=== PATIENT | female | born 2005 | race Caucasian/White ===

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

== ENCOUNTER 2023-01-06 10:50 | Outpatient (OUT) | payer OTHER, SELFPAY ==
--- NOTE | 2023-01-06 11:03 | US_ITS ---
[address] [address] Patient Name: VENKATA THOMPSON MRN: [facility]:[id number] date: 2005 Sex: F Assigned Patient Location: US Current Patient Location: US Accession/Order Number: [id number] Exam Date: 01/06/2023 11:06 Report Date: 01/06/2023 15:09 At the request of: IMAN CYR Procedure: US OB growth EXAMINATION: US OB growth HISTORY: Inconsistent Size With Dates O26.849 COMPARISON: Ultrasound OB anatomy 10/28/2022 FINDINGS: Heart Rate: 135.7 bpm Number: 1.0 Position: CEPHALIC Amniotic Fluid Volume: 13.3 cm Maximum Vertical Pocket: 4.7 cm BIOMETRY: BPD: 7.7 cm cm; 31 weeks 0 days; 57% HC: 28.5 cmcm; 31 weeks 2 days; 37% AC: 24.9 cm cm; 29 weeks 1 days; 12% FL: 5.6 cm cm; 29 weeks 4 days; 13% % EFW: 1421.6 grams; 15% FL/AC: 22.6 FL/BPD: 72.7 HC/AC: 1.1 GESTATIONAL AGE: Age by EDC: 30 weeks 3 days BUTCH by EDC: 03/14/2023 Age by US: 30 weeks 2 days BUTCH by US: 03/15/2023 US/US OB growth IMPRESSION: 1. Single live intrauterine with growth detailed above. 2. Grade 2 mildly aged placenta. Electronically authenticated by: DIOR ERICKSON Date: 01/06/2023 15:09
== END 2023-01-06 10:51 | disposition home or self-care (01) ==
PROVIDERS: PCP Family Medicine; Visit Provider Obstetrics & Gynecology
DX: O26.843 Uterine size-date discrepancy, third trimester (principal); Z3A.30 30 weeks gestation of pregnancy
CPT/HCPCS: 76816

== ENCOUNTER 2023-02-10 07:55 | Outpatient (OUT) | payer OTHER, SELFPAY ==
--- NOTE | 2023-02-10 08:00 | US_ITS ---
[address] [address] Patient Name: VENKATA THOMPSON MRN: [id number] date: 2005 Sex: F Assigned Patient Location: US Current Patient Location: Accession/Order Number: [id number] Exam Date: 02/10/2023 08:02 Report Date: 02/10/2023 15:16 At the request of: IMAN CYR Procedure: US OB growth EXAMINATION: US OB growth HISTORY: Size Inconsistent With Dates COMPARISON: Ultrasound OB growth 01/06/2023 FINDINGS: Heart Rate: 129.2 bpm Number: 1.0 Position: Cephalic Amniotic Fluid Volume: 13.3 cm Maximum Vertical Pocket: 3.8 cm BIOMETRY: BPD: 8.8 cm cm; 35 weeks 3 days HC: 31.4 cmcm; 35 weeks 1 days AC: 30.3 cm cm; 34 weeks 2 days FL: 6.8 cm cm; 34 weeks 5 days EFW: 2469.4 grams; 26% FL/AC: 22.3 FL/BPD: 76.9 HC/AC: 1.0 GESTATIONAL AGE: Age by EDC: 35 weeks 3 days BUTCH by EDC: 03/14/2023 Age by US: 34 weeks 6 days BUTCH by US: 03/18/2023 US/US OB growth IMPRESSION: 1. Single live intrauterine with growth detailed above. Electronically authenticated by: DIOR ERICKSON Date: 02/10/2023 15:16
--- NOTE | 2023-02-10 08:00 | US_ITS ---
[address] [address] Patient Name: VENKATA THOMPSON MRN: [facility]:[id number] date: 2005 Sex: F Assigned Patient Location: US Current Patient Location: Accession/Order Number: [id number] Exam Date: 02/10/2023 08:02 Report Date: 02/10/2023 15:18 At the request of: IMAN CYR Procedure: US OB transvaginal EXAMINATION: US OB placenta HISTORY: Placenta Previa In Third Trimester O44.03 COMPARISON: Ultrasound OB growth 01/06/2023, ultrasound OB anatomy 10/28/2022 FINDINGS: PLACENTA: Anterior with lower margin 10.0 cm from os. Numerous calcifications throughout the placenta. No production or subchorionic hematoma. CERVIX LENGTH: 2.5 cm HEART RATE: 124 bpm OTHER: None. US/US OB transvaginal IMPRESSION: 1. Grade 2 anterior placenta without previa. 2. Closed cervix 2.5 cm in length. Electronically authenticated by: DIOR ERICKSON Date: 02/10/2023 15:18
--- NOTE | 2023-02-10 08:00 | US_ITS ---
[place] [id number] Patient Name: VENKATA THOMPSON MRN: [facility]:[id number] date: 2005 Sex: F Assigned Patient Location: US Current Patient Location: Accession/Order Number: [id number] Exam Date: 02/10/2023 08:02 Report Date: 02/10/2023 15:18 At the request of: IMAN CYR Procedure: US OB placenta EXAMINATION: US OB placenta HISTORY: Placenta Previa In Third Trimester O44.03 COMPARISON: Ultrasound OB growth 01/06/2023, ultrasound OB anatomy 10/28/2022 FINDINGS: PLACENTA: Anterior with lower margin 10.0 cm from os. Numerous calcifications throughout the placenta. No production or subchorionic hematoma. CERVIX LENGTH: 2.5 cm HEART RATE: 124 bpm OTHER: None. US/US OB placenta IMPRESSION: 1. Grade 2 anterior placenta without previa. 2. Closed cervix 2.5 cm in length. Electronically authenticated by: DIOR ERICKSON Date: 02/10/2023 15:18
== END 2023-02-10 07:56 | disposition home or self-care (01) ==
LOC: US 07:55
PROVIDERS: Visit Provider Obstetrics & Gynecology
DX: O44.03 Complete placenta previa NOS or without hemorrhage, third trimester (principal); O26.843 Uterine size-date discrepancy, third trimester
CPT/HCPCS: 76815; 76816; 76817

== ENCOUNTER 2023-02-14 20:41 | Outpatient (REF) | payer OTHER, SELFPAY | END 2023-02-14 20:42 | disposition home or self-care (01) | LOC: LAB 20:41 | PROVIDERS: Visit Provider Obstetrics & Gynecology | DX: Z34.93 Encounter for supervision of normal pregnancy, unspecified, third trimester (principal) | CPT/HCPCS: 87081; 87150 ==

== ENCOUNTER 2023-02-23 12:15 | Outpatient (OUT) | payer OTHER, SELFPAY ==
[2023-02-23 12:30] VITALS: BP 133/84; PULSE 85
[2023-02-23 12:38] LABS: Bilirubin Urine NEGATIVE (NEGATIVE); Blood Urine SMALL (NEGATIVE); Clarity Urine CLEAR (CLEAR); Color Urine LT. YELLOW (YELLOW); Glucose Urine UA NEGATIVE (NEGATIVE); Ketones Urine NEGATIVE (NEGATIVE); Leukocyte Esterase Urine SMALL (NEGATIVE); Nitrite Urine NEGATIVE (NEGATIVE); Protein Urine >=300 mg/dL (NEG/TRACE); Urobilinogen Urine 0.2 EU/dL (0.2-1.0)
[2023-02-23 12:39] LABS: Urine Microscopic Indicated YES
[2023-02-23 12:51] LABS: Bacteria Urine SMALL #/HPF (NONE SEEN)
[2023-02-23 12:52] LABS: Cast Seen? NONE SEEN #/LPF (NONE SEEN); Crystals Seen? None Seen #/HPF (None Seen); Mucus Urine NONE SEEN (NONE SEEN); Squamous Epithelial Cell Urine FEW #/LPF (NONE/RARE); Urine Culture Indicated YES
--- NOTE | 2023-02-23 12:57 | US_ITS ---
[address] [address] Patient Name: VENKATA THOMPSON MRN: [id number] date: 2005 Sex: F Assigned Patient Location: [facility] Current Patient Location: [facility] Accession/Order Number: [id number] Exam Date: 02/23/2023 13:39 Report Date: 02/23/2023 15:08 At the request of: IMAN CYR Procedure: US renal BI EXAM: Renal and bladder ultrasound CLINICAL INDICATION: back and abdominal pain. COMPARISON: None TECHNIQUE: Grayscale and color Doppler imaging was obtained of both kidneys. FINDINGS: RIGHT: Moderate hydronephrosis. Debris in the right renal pelvis. Cortical echogenicity and thickness is preserved. The kidney measures 10.6 cm length. No sonographically evident renal calculi. No abnormal renal masses identified. LEFT: No hydronephrosis. Cortical echogenicity and thickness is preserved. The kidney measures 11.3 cm length. No sonographically evident renal calculi. No abnormal renal masses identified. Bladder: No obvious sonographic abnormality. US/US renal BI IMPRESSION: Moderate right hydronephrosis with debris in the renal pelvis. Electronically authenticated by: JOSE GRANT Date: 02/23/2023 15:08
--- NOTE | 2023-02-23 12:57 | US_ITS ---
[place] [id number] Patient Name: VENKATA THOMPSON MRN: [facility]:[id number] date: 2005 Sex: F Assigned Patient Location: [facility] Current Patient Location: [facility] Accession/Order Number: [id number] Exam Date: 02/23/2023 13:39 Report Date: 02/23/2023 15:08 At the request of: IMAN CYR Procedure: US OB placenta EXAM: US OB placenta 02/23/2023 12:04 PM PDT, [id number] HISTORY: back and abdominal pain. TECHNIQUE: Multiple longitudinal and transverse grayscale and color sonographic images of the uterine fetus and placenta were acquired. COMPARISON: None. FINDINGS: The placenta is anterior. There are scattered calcifications throughout the placenta with early outline of the cotelydons, appearance is within expected limits given the gestational age of 37 weeks 2 days. No evidence of placental abruption. Retroplacental interface with the uterus is within normal limits. Single live intrauterine fetus. Presentation is cephalic and the heart rate is within normal limits at 133 bpm. US/US OB placenta IMPRESSION: No etiology for left flank pain demonstrated. Electronically authenticated by: JENA HALL Date: 02/23/2023 15:08
[2023-02-23 13:19] VITALS: BP 95/53; PULSE 96
[2023-02-23] MEDS: 0.9 % SODIUM CHLORIDE 1,000 ML 1000 ML IV (13:27)
[2023-02-23 13:31] LABS: Basophils Percent Auto 0.5 % (0.2-2.0); Eosinophils Absolute Auto 0.1 10^3/uL (0.0-0.7); Eosinophils Percent Auto 0.8 % (0.9-7.0); Hematocrit 31.8 % (36.0-48.0); Hemoglobin 9.8 g/dL (12.0-16.0); Immature Granulocytes Abs Auto 0.09 10^3/uL (0.00-0.03); Immature Granulocytes Pct Auto 1.1 % (0.0-0.5); Lymphocytes Absolute Auto 1.5 10^3/uL (1.2-3.8); Mean Corpuscular HGB Conc 30.8 g/dL (29.9-35.2); Mean Corpuscular Hemoglobin 23.6 pg (26.7-34.0); Mean Corpuscular Volume 76.4 fL (81.0-99.0); Mean Platelet Volume 11.1 fL (9.5-13.5); Monocytes Absolute Auto 0.5 10^3/uL (0.3-0.8); Monocytes Percent Auto 5.3 % (1.7-12.0); Neutrophils Absolute Auto 6.3 10^3/uL (1.4-6.5); Neutrophils Percent Auto 74.3 % (43.0-75.0); Platelet Count 244 10^3/uL (150-450); Red Blood Count 4.16 10^6/uL (4.20-5.40); White Blood Count 8.5 10^3/uL (4.0-11.0)
[2023-02-23] MEDS: CEFAZOLIN SODIUM/DEXTROSE,ISO 1 GM/50 ML IV.SOLN IV (13:33)
[2023-02-23 13:43] LABS: Alanine Aminotransferase 19 U/L (14-59); Aspartate Amino Transferase 12 U/L (15-37); Estimated GFR (African America >60 (>=60); Estimated GFR (Non-African Ame >60 (>=60)
[2023-02-23] MEDS: NIFEdipine 10 MG CAPSULE PO (15:47)
[2023-02-23 15:49] VITALS: BP 131/76; PULSE 67
== END 2023-02-23 17:45 | disposition home or self-care (01) ==
LOC: FBCO 12:16 → FBC 12:18
PROVIDERS: PCP Family Medicine; Visit Provider Obstetrics & Gynecology
DX: O26.893 Other specified pregnancy related conditions, third trimester (principal); M54.89 Other dorsalgia; R10.9 Unspecified abdominal pain; Z3A.37 37 weeks gestation of pregnancy
CPT/HCPCS: 36415; 76775; 76815; 81001; 82565; 84450; 84460; 84520; 85025; 87086

== ENCOUNTER 2023-03-09 05:08 | Inpatient (IN) | payer OTHER, SELFPAY ==
[2023-03-09] VITALS (59 sets, daily range): BP systolic 119–182; BP diastolic 63–107; PULSE 62–108; RESP 16; TEMP 36.7–37
[2023-03-09 05:55] LABS: Hematocrit 31.5 % (36.0-48.0); Hemoglobin 9.8 g/dL (12.0-16.0); Mean Corpuscular HGB Conc 31.1 g/dL (29.9-35.2); Mean Corpuscular Hemoglobin 23.6 pg (26.7-34.0); Mean Corpuscular Volume 75.7 fL (81.0-99.0); Platelet Count 194 10^3/uL (150-450); Red Blood Count 4.16 10^6/uL (4.20-5.40); Red Cell Distribution Width 14.4 % (11.0-15.0); White Blood Count 8.6 10^3/uL (4.0-11.0)
[2023-03-09 06:13] LABS: Cannabinoid Screen Urine NEGATIVE (NEGATIVE); Cocaine Screen Urine NEGATIVE (NEGATIVE); Methamphetamines Screen Urine NEGATIVE (NEGATIVE); Phencyclidine Screen Urine NEGATIVE (NEGATIVE)
[2023-03-09 06:14] LABS: Amphetamine Screen Urine NEGATIVE (NEGATIVE); Barbiturates Screen Urine NEGATIVE (NEGATIVE); Benzodiazepines Screen Urine NEGATIVE (NEGATIVE); Buprenorphine Screen Urine NEGATIVE (NEGATIVE); Methadone Screen Urine NEGATIVE (NEGATIVE); Opiate Screen Urine NEGATIVE (NEGATIVE); Oxycodone Screen Urine NEGATIVE (NEGATIVE); Tricyclic Antidepressant Urine NEGATIVE (NEGATIVE)
[2023-03-09] MEDS: 0.9 % SODIUM CHLORIDE 1,000 ML 125 ML IV (06:21)
[2023-03-09] MEDS: AMPICILLIN SODIUM 2,000 MG in 0.9 % SODIUM CHLORIDE 100 ML 200 MG IV (06:22)
[2023-03-09] MEDS: OXYTOCIN/0.9 % SODIUM CHLORIDE 10 UNITS/500 ML PLAST..BAG 6 UNIT IV (06:25)
--- NOTE | 2023-03-09 08:21 | W.PC.ACHO ---
Registration Status: ADM IN Primary Language: Tristanian Preferred Language: Tristanian Active Medications Generic Name Dose Route Start Last Admin Trade Name Jenelle PRN Reason Stop Dose Admin Carboprost Tromethamine 250 mcg 03/09/23 05:21 Carboprost Tromethamine 250 Mcg/Ml 1 Ml Vial IM 03/11/23 05:21 Q15M PRN Bleeding Sodium Chloride 1,000 mls @ 125 mls/hr 03/09/23 05:30 03/09/23 06:21 Sodium Chloride 0.9% 1,000 Ml IV 125 mls/hr .Q8H DANIELLE Administration Oxytocin/Sodium Chloride 10 units in 500 mls @ 6 mls/hr 03/09/23 05:30 03/09/23 06:25 Pitocin 10 Unit/500 Ml-Ns IV 2 milliunit/min CONT DANIELLE 6 mls/hr Administration Protocol 2 MILLIUNIT/MIN Ampicillin 1,000 mg/ Sodium 50 mls @ 100 mls/hr 03/09/23 10:00 Chloride IV Q4H DANIELLE Oxytocin/Sodium Chloride 20 units in 1,000 mls @ 125 mls/hr 03/09/23 05:30 Pitocin 20 Unit/1,000 Ml-Ns IV 03/09/23 13:29 Q8H DANIELLE Lidocaine 5 ml 03/09/23 05:21 Lidocaine Viscous 2% 15 Ml Solution TOPICAL ONCE PRN Pain Lidocaine 1 ml 03/09/23 05:21 Lidocaine Hcl 1% 200 Mg/20 Ml Mdv INJ ONCE PRN Pain Methylergonovine Maleate 0.2 mg 03/09/23 05:21 Methylergonovine Maleate 0.2 Mg/Ml Ampule IM 03/11/23 05:21 ONCE PRN Uterine Contractility/Contract Methylergonovine Maleate 0.2 mg 03/09/23 05:21 Methylergonovine Maleate 0.2 Mg Tablet PO 03/11/23 05:21 Q4H PRN Uterine Contractility/Contract Misoprostol 600 mcg 03/09/23 05:21 Misoprostol 100 Mcg Tablet PO 03/11/23 05:21 ONCE PRN Uterine Bleeding Misoprostol 800 mcg 03/09/23 05:21 Misoprostol 100 Mcg Tablet SL 03/11/23 05:21 ONCE PRN Uterine Bleeding Misoprostol 1,000 mcg 03/09/23 05:21 Misoprostol 100 Mcg Tablet VT 03/11/23 05:21 ONCE PRN Uterine Bleeding Nalbuphine HCl 10 mg 03/09/23 05:21 Nalbuphine Hcl 10 Mg/Ml Ampule IV Q3H PRN Pain Ondansetron HCl 4 mg 03/09/23 05:21 Ondansetron Pf 4 Mg/2 Ml Vial IV Q6H PRN Nausea And Vomiting Ondansetron HCl 4 mg 03/09/23 05:21 Ondansetron 4 Mg Rapdis Tablet SL Q6H PRN Nausea And Vomiting Oxytocin 10 unit 03/09/23 05:21 Oxytocin 10 Unit/Ml Vial IM 03/11/23 05:21 ONCE PRN Bleeding Diet Category Date Time Status Clear Liquid Diet Diet 03/09/23 05:23 Active Consults Category Date Time Status Consult to Anesthesiology Routine Cons 03/09/23 Ordered IV Insertion/Site Date of IV Line Insertion [20g 03/09/23 Forearm] IV Insertion Time [20g Forearm 05:40 ] Neurology Patient orientation (short person,place,time,situation list)
[2023-03-09] MEDS: 0.9 % SODIUM CHLORIDE 1,000 ML 1000 ML IV (09:47)
[2023-03-09] MEDS: ROPIVACAINE HCL/PF 400 MG/200 ML PREMIX 6 MG EPIDURAL (11:13)
[2023-03-09] MEDS: FENTANYL CITRATE/PF 100 MCG/2 ML VIAL EPIDURAL ×2 (11:13→11:14)
[2023-03-09] MEDS: LIDOCAINE HCL 2% PF 100 MG/5 ML VIAL INJ (11:16)
[2023-03-09] MEDS: AMPICILLIN SODIUM 1,000 MG in 0.9 % SODIUM CHLORIDE 50 ML 100 MG IV ×2 (11:50→16:03)
--- NOTE | 2023-03-09 12:12 | PC.NURSE ---
calls out I feel funny, my head hurts and I feel a little nauseous BP assessed, reflexes 2+ upper, unable to illicit lower, no dizziness, visual disturbances or epigastric pain noted. cold washcloth to forehead and encouraged to rest
--- NOTE | 2023-03-09 13:05 | PC.NURSE ---
repositioned onto rt side for comfort, headache continues
--- NOTE | 2023-03-09 18:25 | PM.OBPRCVD ---
Procedure Intrapartal events: None Induction method: per pitocin protocol Delivery augmentation: rupture of membranes and pitocin Delivery monitor: external FHT and external uterine Route of delivery: Episiotomy Description: midline Laceration description: perineal - 2nd degree Delivery repair: Vicryl Estimated blood loss (mL): 250 Anesthesia type: Epidural Disposition: floor Delivery date: 03/09/23 Gender: female presentation: vertex Placental delivery description: Spontaneous cord description: 3 Vessels
[2023-03-09] MEDS: LIDOCAINE HCL 1% 200 MG/20 ML MDV INJ (18:41)
[2023-03-09] MEDS: OXYTOCIN/0.9 % SODIUM CHLORIDE 20 UNITS/1,000 ML PLAST..BAG 125 UNIT IV (18:41)
[2023-03-09] MEDS: IBUPROFEN 600 MG TABLET PO (20:12)
[2023-03-09] MEDS: GLYCERIN/WITCH HAZEL PADS 1 PAD TOPICAL (20:13)
[2023-03-09] MEDS: BENZOCAINE/MENTHOL 85 GRAM SPRAY BOTTLE 1 APPLIC TOPICAL (20:14)
--- NOTE | 2023-03-09 21:29 | PC.NURSE ---
2054 Epidural removed intact to black tip, BP rechecked with pt lying with arm still, denies headache or blurry vision or epigastric pain-knows to inform nurse if any of these occur. Up to void, pericare reviewed and bedlinens changed
--- NOTE | 2023-03-10 01:56 | PC.NURSE ---
Report given to Sid Singletary RN.
[2023-03-10] MEDS: IBUPROFEN 600 MG TABLET PO ×3 (04:28→21:01)
[2023-03-10 06:19] LABS: Basophils Absolute Auto 0.1 10^3/uL (0.0-0.1); Basophils Percent Auto 0.3 % (0.2-2.0); Eosinophils Percent Auto 0.1 % (0.9-7.0); Hematocrit 25.7 % (36.0-48.0); Hemoglobin 7.9 g/dL (12.0-16.0); Immature Granulocytes Abs Auto 0.11 10^3/uL (0.00-0.03); Immature Granulocytes Pct Auto 0.6 % (0.0-0.5); Lymphocytes Absolute Auto 2.5 10^3/uL (1.2-3.8); Lymphocytes Percent Auto 14.6 % (20.5-60.0); Mean Corpuscular HGB Conc 30.7 g/dL (29.9-35.2); Mean Corpuscular Volume 74.9 fL (81.0-99.0); Mean Platelet Volume 11.6 fL (9.5-13.5); Monocytes Absolute Auto 0.8 10^3/uL (0.3-0.8); Monocytes Percent Auto 4.9 % (1.7-12.0); Neutrophils Absolute Auto 13.7 10^3/uL (1.4-6.5); Neutrophils Percent Auto 79.5 % (43.0-75.0); Platelet Count 150 10^3/uL (150-450); Red Blood Count 3.43 10^6/uL (4.20-5.40); Red Cell Distribution Width 14.7 % (11.0-15.0); White Blood Count 17.2 10^3/uL (4.0-11.0)
--- NOTE | 2023-03-10 07:41 | PM.OBPN ---
OB - PN: Subj Subjective Patient comments: no complaints and pain well controlled [place] status: doing well Exam Constitutional Vital Signs, click to edit/add: Last Vital Signs Temp 98.6 F 03/09/23 23:28 Pulse 68 03/09/23 23:28 Resp 16 03/09/23 23:28 BP 128/71 03/09/23 23:17 O2 Del Method Room Air 03/09/23 23:28 Documenting provider has reviewed patient's vital signs: yes Common normals: no apparent distress Respiratory Common normals: normal respiratory effort and clear to auscultation bilaterally Cardio Common normals: regular rate and regular rhythm GI Common normals: Normal to inspection, nondistended, normoactive bowel sounds present Extremity Common normals: no calf tenderness Results Labs Labs: Short CBC 03/10/23 Range/Units 05:47 WBC 17.2 H (4.0-11.0) 10^3/uL Hgb 7.9 L (12.0-16.0) g/dL Hct 25.7 L (36.0-48.0) % Plt Count 150 (150-450) 10^3/uL OB - PN: A/P Plan - Vaginal Delivery day: 1 Plan: routine care Time Spent with Patient Time: Total time spent is greater than 50% in coordination of care (as documented) at patient's floor/unit and/or counseling patient: Total time spent with greater than 50% in coordination of care (as documented) at patient's floor/unit and/or counseling patient: less than 15 minutes
--- NOTE | 2023-03-10 08:07 | W.PC.ACHO ---
Registration Status: ADM IN Primary Language: Djiboutian Preferred Language: Djiboutian Active Medications Generic Name Dose Route Start Last Admin Trade Name Jenelle PRN Reason Stop Dose Admin Acetaminophen 650 mg 03/09/23 18:26 Acetaminophen 325 Mg Tablet PO Q6H PRN Mild Pain Al Hydroxide/Mg Hydroxide 2,400 mg 03/09/23 18:26 Magnesium Hydroxide 2,400 Mg/10 Ml Oral.Susp PO Q6H PRN Dyspepsia Benzocaine/Menthol 1 applic 03/09/23 18:26 03/09/23 20:14 Benzocaine/Menthol 85 Gram Jet Bottle TOPICAL 1 applic Q2H PRN Administration Pain Carboprost Tromethamine 250 mcg 03/09/23 05:21 Carboprost Tromethamine 250 Mcg/Ml 1 Ml Vial IM 03/11/23 05:21 Q15M PRN Bleeding Diphenhydramine HCl 25 mg 03/09/23 08:41 Diphenhydramine Hcl 50 Mg/Ml (1ml) Vial IV 03/10/23 08:42 Q6H PRN Itching Diphtheria/Pertussis/Tetanus Vacc 0.5 ml 03/11/23 09:00 Adacel Diph,Pertuss(Acell),Tet Vac/Pf 0.5 Ml Adult Syringe IM 03/11/23 09:01 .ONCE ONE Docusate Sodium 100 mg 03/10/23 09:00 Docusate Sodium 100 Mg Capsule PO BID DANIELLE Ephedrine Sulfate 5 mg 03/09/23 08:41 Ephedrine Sulfate 50 Mg/Ml Vial IV 03/10/23 08:42 Q5M PRN Blood Pressure - Low Fentanyl Citrate 100 mcg 03/09/23 08:41 03/09/23 11:13 Fentanyl Citrate/Pf 100 Mcg/2 Ml Vial EPIDURAL 100 mcg ONCE PRN Administration epidural Fentanyl Citrate 100 mcg 03/09/23 08:41 03/09/23 11:14 Fentanyl Citrate/Pf 100 Mcg/2 Ml Vial EPIDURAL 100 mcg ONCE PRN Administration epidural Sodium Chloride 1,000 mls @ 125 mls/hr 03/09/23 05:30 03/09/23 11:54 Sodium Chloride 0.9% 1,000 Ml IV 125 mls/hr .Q8H DANIELLE Infusion Oxytocin/Sodium Chloride 10 units in 500 mls @ 6 mls/hr 03/09/23 05:30 03/09/23 06:25 Pitocin 10 Unit/500 Ml-Ns IV 2 milliunit/min CONT DANIELLE 6 mls/hr Administration Protocol 2 MILLIUNIT/MIN Ampicillin 1,000 mg/ Sodium 50 mls @ 100 mls/hr 03/09/23 10:00 03/09/23 16:03 Chloride IV 100 mls/hr Q4H DANIELLE Administration Ropivacaine/Sodium Chloride 400 mg in 200 mls @ 6 mls/hr 03/09/23 08:45 03/09/23 11:13 Naropin 0.2% 400 Mg/200 Ml Bag EPIDURAL 6 mls/hr Q24H DANIELLE Administration Ibuprofen 600 mg 03/09/23 18:26 03/10/23 04:28 Ibuprofen 600 Mg Tablet PO 600 mg Q6H PRN Administration Moderate Pain Lidocaine 5 ml 03/09/23 05:21 Lidocaine Viscous 2% 15 Ml Solution TOPICAL ONCE PRN Pain Lidocaine 1 ml 03/09/23 05:21 03/09/23 18:41 Lidocaine Hcl 1% 200 Mg/20 Ml Mdv INJ 1 ml ONCE PRN Administration Pain Lidocaine 5 ml 03/09/23 08:41 03/09/23 11:16 Lidocaine Hcl 2% Pf 100 Mg/5 Ml Vial INJ 03/10/23 08:42 5 ml Q1H PRN Administration Epidural Measles/Mumps/Rubella Vaccine Live 0.5 ml 03/11/23 09:00 Measles,Mumps,Rubella Vacc/Pf 0.5 Ml Vial SQ 03/11/23 09:01 .ONCE ONE Methylergonovine Maleate 0.2 mg 03/09/23 05:21 Methylergonovine Maleate 0.2 Mg/Ml Ampule IM 03/11/23 05:21 ONCE PRN Uterine Contractility/Contract Methylergonovine Maleate 0.2 mg 03/09/23 05:21 Methylergonovine Maleate 0.2 Mg Tablet PO 03/11/23 05:21 Q4H PRN Uterine Contractility/Contract Misoprostol 600 mcg 03/09/23 05:21 Misoprostol 100 Mcg Tablet PO 03/11/23 05:21 ONCE PRN Uterine Bleeding Misoprostol 800 mcg 03/09/23 05:21 Misoprostol 100 Mcg Tablet SL 03/11/23 05:21 ONCE PRN Uterine Bleeding Misoprostol 1,000 mcg 03/09/23 05:21 Misoprostol 100 Mcg Tablet NJ 03/11/23 05:21 ONCE PRN Uterine Bleeding Nalbuphine HCl 10 mg 03/09/23 05:21 Nalbuphine Hcl 10 Mg/Ml Ampule IV Q3H PRN Pain Naloxone HCl 0.4 mg 03/09/23 08:41 Naloxone Hcl 0.4 Mg/Ml Vial IV 03/10/23 08:42 ONCE PRN Epidural Ondansetron HCl 4 mg 03/09/23 05:21 Ondansetron Pf 4 Mg/2 Ml Vial IV Q6H PRN Nausea And Vomiting Ondansetron HCl 4 mg 03/09/23 05:21 Ondansetron 4 Mg Rapdis Tablet SL Q6H PRN Nausea And Vomiting Oxytocin 10 unit 03/09/23 05:21 Oxytocin 10 Unit/Ml Vial IM 03/11/23 05:21 ONCE PRN Bleeding Senna 17.2 mg 03/09/23 20:00 Sennosides 8.6 Mg Tablet PO QHS PRN Constipation Simethicone 80 mg 03/09/23 18:26 Simethicone 80 Mg Tab.Chew PO QID PRN Abdominal Distention Temazepam 15 mg 03/09/23 18:26 Temazepam 15 Mg Capsule PO QHS PRN Sleep Witch Hanna/Glycerin 1 pad 03/09/23 18:26 03/09/23 20:13 Glycerin/Witch Hanna Pads TOPICAL 1 pad Q2H PRN Administration Pain Diet Category Date Time Status Regular Consistency Diet Diet 03/09/23 18:27 Active Respiratory Oxygen Delivery Method Room Air Bowels Bowel Pattern No Bowel Movement Catheter Date Urinary Catheter Removed 03/09/23
[2023-03-10 13:12] VITALS: BP 136/88; PULSE 80
[2023-03-10] MEDS: DOCUSATE SODIUM 100 MG CAPSULE PO ×2 (13:15→21:02)
[2023-03-10 16:32] VITALS: BP 131/74; PULSE 97
[2023-03-10 19:52] VITALS: BP 128/80; PULSE 81
[2023-03-10 20:16] VITALS: PULSE 81; RESP 14; TEMP 37.1
--- NOTE | 2023-03-11 04:25 | PM.OBPN ---
OB - PN: Subj Subjective Patient comments: no complaints and pain well controlled status: doing well Exam Constitutional Vital Signs, click to edit/add: Last Vital Signs Temp 98.7 F 03/10/23 20:16 Pulse 81 03/10/23 20:16 Resp 14 03/10/23 20:16 BP 128/80 03/10/23 19:52 O2 Del Method Room Air 03/10/23 20:16 Documenting provider has reviewed patient's vital signs: yes Common normals: no apparent distress Respiratory Common normals: normal respiratory effort and clear to auscultation bilaterally Cardio Common normals: regular rate and regular rhythm GI Common normals: Normal to inspection, nondistended, normoactive bowel sounds present Extremity Common normals: no clubbing, cyanosis or edema and no calf tenderness Results Labs Labs: Short CBC 03/10/23 Range/Units 05:47 WBC 17.2 H (4.0-11.0) 10^3/uL Hgb 7.9 L (12.0-16.0) g/dL Hct 25.7 L (36.0-48.0) % Plt Count 150 (150-450) 10^3/uL OB - PN: A/P Plan - Vaginal Delivery day: 2 Plan: routine care, discharge home and follow up 6 weeks Time Spent with Patient Time: Total time spent is greater than 50% in coordination of care (as documented) at patient's floor/unit and/or counseling patient: Total time spent with greater than 50% in coordination of care (as documented) at patient's floor/unit and/or counseling patient: less than 15 minutes
[2023-03-11 04:51] VITALS: BP 139/71; PULSE 67
[2023-03-11 05:04] VITALS: PULSE 67; RESP 14; TEMP 36.4
[2023-03-11 08:16] VITALS: BP 161/95; PULSE 68
[2023-03-11 08:17] VITALS: BP 146/87; PULSE 77
[2023-03-11 11:23] VITALS: BP 146/91; PULSE 64
--- NOTE | 2023-03-11 17:02 | PC.NURSE ---
bp as charted. repeated in opposite arm while sitting semi root's. Pt denies HOFF, blurry vision or epigastric pain. DTRs 1+upper and lower. Pt denies pain at this time. 09- to breast. latches independently. 103-Dr. Sofia in to assess . 1100-latches infant to breast again independently. 1110-Dr. Chapa in talks with pt about blood pressures. Pt verbalizes understanding, denies s/s of PIH. 112-repeat BP as charted. pt remains asymptomatic. Dr. Chapa orders pt to return tomorrow for recheck of BP. pt to monitor for s/s of PIH. 1140-pt informed of above instructions by Dr. Chapa and verbalizes understanding. 1235- bath demo completed. 1310-d/c instructions of self and reviewed. Discussed at length s/s of PIH and when to notify. Instructed pt to return tomorrow 03/12 @ 1100 for recheck of BP. pt and significant other verbalizes understanding. 1320-d/c to home ambulatory with and family.
== END 2023-03-11 13:20 | disposition home or self-care (01) | DRG 807 ==
PROVIDERS: Admitting Provider Obstetrics & Gynecology; PCP Family Medicine; Visit Provider Obstetrics & Gynecology
DX: O99.824 Streptococcus B carrier state complicating childbirth (principal); Z37.0 Single live birth; O99.62 Diseases of the digestive system complicating childbirth; K21.9 Gastro-esophageal reflux disease without esophagitis; O70.1 Second degree perineal laceration during delivery; Z3A.39 39 weeks gestation of pregnancy; Z79.899 Other long term (current) drug therapy; Z82.5 Family history of asthma and other chronic lower respiratory diseases; Z80.49 Family history of malignant neoplasm of other genital organs
CPT/HCPCS: 36415; 51702; 59050; 59410; 80307; 85025; 85027; 86850; 86900; 86901; 96365; 96375; 96376

== ENCOUNTER 2023-03-12 11:05 | Observation (INO) | payer OTHER, SELFPAY ==
[2023-03-12 11:23] VITALS: BP 156/100; PULSE 75
--- NOTE | 2023-03-12 11:46 | PC.NURSE ---
1115 To [facility] ambulatory accompanied by significant other and baby, states had [place] [facility] [place] herself out this am to come back here where she is more comfortable. Pt with hx of on 03/09/23 here with labile blood pressures during labor and . Pt called here last night and was sent to closest ER with c/o chest pressure, headache and looking pale . Dr Chapa and [facility] ER physician spoke and reviewed a plan for Leticia's care including transport to [place]. Dr Chapa is currently present here and instructs RN to have pt go to room under obs status and to obtain report from [facility]. Pt grants release of records and ER record from there sent here via fax and Dr Chapa reviews. Pt in room relaxing. Initial assessment Lungs clear t.o, denies chest pain, epigastric pain,visual disturbances or headache currently. States i feel good , vs 156/100 98.3-75-18. No swelling noted. Reflexes 1+upper, 2-3+ lower. Tearful regarding possible hospitalization and much reassurance given.
--- NOTE | 2023-03-12 11:58 | PC.NURSE ---
Dr Chapa in and talks with pt and significant other at length and examines, discusses plan of care with this RN as well
--- NOTE | 2023-03-12 12:13 | P.HP_ITS ---
H&P: HPI History of Present Illness Chief complaint: POST Narrative: [facility] WAS DISCHARGED YESTERDAY S/P UNCOMPLICATED VAGINAL DELIVERY. AT THE TIME OF DISCHARGE SHE HAD BORDERLINE HYPERTENSION WITHOUT SYMPTOMS. LATE LAST NIGHT SHE CALLED [facility] AND COMPLAINED OF HEADACHE WITH SOB AND CHEST PAIN. SHE WAS INSTRUCTED TO GO TO NEAREST ED. SHE WENT TO [facility]. THE ED PHYSICIAN WAS INSTRUCTED ON WHICH LABS TO ORDER IN EVALUATION FOR TOXEMIA POST DELIVERY AND ON DOSE OF LABETALOL FOR BLOOD PRESSURES REPORTED 160'S/100'S. SHE DID NOT HAVE CHEST PAIN OR SOB WHEN SEEN BY ED PHYSICIAN. WHILE WAITING FOR RESULTS OF LABS SHE WAS STARTED ON MAGNESIUM FOR SEIZURE PROTECTION. ONCE STAB ILIZED THE ED TRANSFERRED TO [place] BUT THE PATIENT SIGNED OUT AMA. SHE PRESENTED TO [facility] THIS AM. SHE WAS NOT COMPLAINING OF ANY CHEST PAIN OR SOB OR RUQ PAIN OR VISUAL CHANGES. SHE WAS TEARFUL BUT DIDN'T KNOW SPECIFICALLY WHY. Review of Systems ROS Status of ROS 10 or more systems reviewed and unremarkable except as noted in history and below [facility] Medical History (Updated 03/12/23 @ 12:28 by Francheska Chapa MD) Stomach problems ?K31.9 - Disease of stomach and duodenum, unspecified (ICD-10) Social History (Updated 03/09/23 @ 06:34 by Rebeka Neely) Within the past year, how often did you have a drink containing alcohol: never Score interpretation: A score less than 3 is consistent with normal alcohol consumption. 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 Highest level of school completed/degree received: high school graduate Are you now , , , , never or living with a partner: never Little interest or pleasure in doing things: not at all Feeling down, depressed, or hopeless: not at all Feel stressed/tense/nervous/anxious/difficulty sleeping: not at all Do you think of yourself as: straight/heterosexual Gender Identity: female Meds Home Medications and Allergies Home Medications Medication Instructions Recorded Confirmed Type omeprazole 40 mg capsule,delayed mg 03/09/23 History release Allergies Allergy/AdvReac Type Severity Reaction Status Date / Time No Known Allergies Allergy Unknown Verified 03/09/23 06:36 Exam Constitutional Vital Signs, click to edit/add: Last Vital Signs Pulse 75 03/12/23 11:23 BP 156/100 H 03/12/23 11:23 Documenting provider has reviewed patient's vital signs: yes Common normals: oriented x3, no limitations, healthy appearing and alert General appearance: cooperative and comfortable Nutritional appearance: thin Orientation/consciousness: Yes oriented to person, Yes oriented to place and Yes oriented to time HENMT Common normals: normocephalic and head/scalp atraumatic Eye Pupil: PERRL and accommodation reflex normal Neck & C-Spine Common normals: full ROM, no lymphadenopathy and supple Chest Common normals: inspection of chest normal Respiratory Common normals: normal respiratory effort Cardio Common normals: no JVD, regular rate and regular rhythm GI Common normals: Normal to inspection, nondistended, normoactive bowel sounds present Back & Pelvis Common normals: no CVA tenderness Extremity Common normals: normal to inspection, full ROM and no calf tenderness Neuro Common normals: CN's II-XII intact bilaterally, moves all extremities, no focal motor deficits and no sensory deficits noted Psych Common normals: mental status grossly normal, thought process normal, cooperative, affect normal (IS TEARFUL HOWEVER IS AND SLEEP DEPRIVED) and denies suicidal ideation Appearance: grossly normal and well kempt Attitude: calm Activity/motor behavior: appropriate eye contact Mood and affect: tearful Assessment and Plan Assessment and Plan (1) state: Onset Date: 02/2023 Assessment and Plan: HAD ELEVATED BLOOD PRESSURES DURING LABOR. PERSISTED INTERMITTENTLY POST UNCOMPLICATED VAGINAL DELIVERY. WAS DISCHARGED WITH OCCASIONAL HIGH BLOOD PRESSURE READING WITHOUT ASSOCIATED FEATURES OF TOXEMIA WITH INSTRUCTION TO COME BACK TO [facility] IN 24 HOURS FOR BLOOD PRESSURE CHECK. SHE PRESENTED TO [facility] LATE LAST NIGHT WITH COMPLAINTS OF HEADACHE AND SOB AND CHEST PAIN. HER BLOOD PRESSURE WAS ELEVATED. THE SOB AND CHEST PAIN QUICKLY SUBSIDED AND MAY HAVE BEEN A PANIC ATTACK. HER URINE P:C RATIO WAS 2.3 , LFT'S WERE NORMAL AND PLATELETS WERE NORMAL. PATIENT HAD NEGATIVE CT ANGIO TO RULE OUT PE. MAGNESIUM WAS STARTED WHILE AWAITING LAB RESULTS FOR NEURO PROTECTION AGAINST SEIZURE. THE [facility] THEN TRASFERRED TO [place] FOR HIGHER LEVEL OF CARE THEIR OB'S DID NOT ACCEPT. THE PATIENT HOWEVER LEFT [place] AMA. SHE PRESENTED TO [facility] AT 11:30 AM AND WAS EXAMINED BY ME. SHE WAS TEARFUL BUT THIS WAS EXPLAINED BY SLEEP DEPRIVATION AND STATE WITH BRAND NEW BABY TO CARE FOR. NO SUICIDAL IDEATION. NO HEADACHE OR SOB OR CHEST PAIN. HER BLOOD PRESSURE REMAINED ELEVATED AND SHE WAS STARTED ON NIFEDIPINE 30 MG XR QD. SHE WAS STARTED ON ZOLOFT 50 MG PO QD WELL. SHE IS BREAST FEEDING AND THESE MEDS ARE COMPATIBLE WITH BREAST FEEDING. THE BABY IS WITH HER. (2) Hypertension: Assessment and Plan: INTRAPARTUM HYPERTENSION PERSISTING INTO STATE NOT TOXEMIA. BEGAN ON ANTIHYPERTENSIVE. STARTED 24 HOUR URINE COLLECTION FOR TOTAL PROTEIN AND CREATININE CLEARANCE. A CMP AND CBC WITH DIF WAS OBTAINED. TIME WAS SPENT TEACHING THE PATIENT ABOUT THE CAUSES OF HYPERTENSION IN A 17 YEAR OLD IN STATE NOT ATTRIBUTABLE TO TOXEMIA AND PURPOSE OF 24 HOUR URINE COLLECTION. SHE WILL BE DISCHARGED LATER TODAY IF BLOOD PRESSURE ACCEPTABLE ON NIFEDIPINE AND WILL FINISH URINE COLLECTION AT HOME. SHE WAS SMILING DURING OUR DISCUSSION AND HAPPY TO BE ABLE TO GO HOME LATER TODAY.
[2023-03-12] MEDS: SERTRALINE HCL 50 MG TABLET PO (12:23)
[2023-03-12] MEDS: NIFEdipine 30 MG TAB.ER.24 PO (12:23)
--- NOTE | 2023-03-12 12:29 | PC.NURSE ---
medicated and lab at bedside, lunch ordered
[2023-03-12 12:30] VITALS: RESP 18; TEMP 36.8
[2023-03-12 12:33] LABS: Basophils Percent Auto 0.3 % (0.2-2.0); Eosinophils Absolute Auto 0.1 10^3/uL (0.0-0.7); Eosinophils Percent Auto 0.8 % (0.9-7.0); Hematocrit 26.9 % (36.0-48.0); Hemoglobin 8.3 g/dL (12.0-16.0); Immature Granulocytes Abs Auto 0.07 10^3/uL (0.00-0.03); Immature Granulocytes Pct Auto 0.6 % (0.0-0.5); Lymphocytes Absolute Auto 1.3 10^3/uL (1.2-3.8); Lymphocytes Percent Auto 11.2 % (20.5-60.0); Mean Corpuscular HGB Conc 30.9 g/dL (29.9-35.2); Mean Corpuscular Hemoglobin 23.5 pg (26.7-34.0); Mean Corpuscular Volume 76.2 fL (81.0-99.0); Mean Platelet Volume 10.6 fL (9.5-13.5); Monocytes Absolute Auto 0.4 10^3/uL (0.3-0.8); Monocytes Percent Auto 3.5 % (1.7-12.0); Neutrophils Absolute Auto 9.8 10^3/uL (1.4-6.5); Neutrophils Percent Auto 83.6 % (43.0-75.0); Platelet Count 221 10^3/uL (150-450); Red Blood Count 3.53 10^6/uL (4.20-5.40); Red Cell Distribution Width 15.1 % (11.0-15.0); White Blood Count 11.8 10^3/uL (4.0-11.0)
[2023-03-12 12:39] VITALS: BP 157/96; PULSE 77
[2023-03-12 12:44] LABS: Prothrombin Time 9.3 sec (9.0-11.6)
[2023-03-12 12:46] LABS: INR <0.93
[2023-03-12 12:49] LABS: Alanine Aminotransferase 28 U/L (14-59); Albumin Globulin Ratio 0.6; Albumin Level 2.4 g/dL (3.4-5.0); Alkaline Phosphatase 205 U/L (46-116); Anion Gap 13.6; Aspartate Amino Transferase 21 U/L (15-37); BUN Creatinine Ratio 11.5; Bilirubin Total 0.2 mg/dL (0.2-1.0); Calcium 8.1 mg/dL (8.5-10.1); Carbon Dioxide 24.2 mmol/L (21.0-32.0); Chloride 108 mmol/L (98-107); Estimated GFR (African America >60 (>=60); Estimated GFR (Non-African Ame >60 (>=60); Globulin 3.7 g/dL; Glucose 83 mg/dL (74-106); Potassium 3.8 mmol/L (3.5-5.1); Sodium 142 mmol/L (136-145); Total Protein 6.1 g/dL (6.4-8.2)
--- NOTE | 2023-03-12 13:48 | PC.NURSE ---
pt asleep on side, resp easy and even
[2023-03-12 14:54] VITALS: BP 120/67; PULSE 81
--- NOTE | 2023-03-12 15:32 | PC.NURSE ---
bp taken, states feels great after nap, requests breast pump and to pump, breast pump to room and explained same to pt who pumps approx 40 ml milk then puts baby to breast
[2023-03-12 15:54] VITALS: BP 136/88; PULSE 134
--- NOTE | 2023-03-12 15:58 | PC.NURSE ---
dr Chapa aware of pt labs and vital signs, ok for discharge, pt given written and verbal instructions and able to repeat back plan of care. Pt instructed to go straight to pharmacy from here for new meds as well as instructions for 24 hour urine retrieval and need to return tomorrow with order and urine, breast pump order faxed with pt's information.
== END 2023-03-12 16:00 | disposition home or self-care (01) ==
PROVIDERS: Admitting Provider Obstetrics & Gynecology; PCP Family Medicine; Visit Provider Obstetrics & Gynecology
DX: O13.5 Gestational [pregnancy-induced] hypertension without significant proteinuria, complicating the puerperium (principal)
CPT/HCPCS: 36415; 80053; 85025; 85610; G0378; G0379

== ENCOUNTER 2023-03-13 13:33 | Outpatient (OUT) | payer OTHER, SELFPAY ==
--- NOTE | 2023-03-13 15:04 | PC.NURSE ---
1345- Blood pressure assessed by this RN with appropriate sized cuff. Blood pressure 119/74. Patient denies symptoms of pre-eclampsia and states is feeling good. 1346- Dr. Chapa called and reported on patient assessment. Dr. Chapa orders for patient to be discharged home self care, continue Nifedipine as ordered and patient to follow up with Dr. Mcgregor tomorrow 03/14. 1354- Patient educated on following up with Dr. Mcgregor tomorrow 03/14, patient agrees and to call office tomorrow morning. Patient discharged home self care.
== END 2023-03-13 13:54 ==
LOC: FBCO 13:35 → FBC 13:36
PROVIDERS: PCP Family Medicine; Visit Provider Obstetrics & Gynecology
DX: Z39.2 Encounter for routine postpartum follow-up (principal)
CPT/HCPCS: G0463

== ENCOUNTER 2023-03-13 13:41 | Outpatient (REF) | payer OTHER, SELFPAY ==
[2023-03-13 14:28] LABS: Creatinine Urine Random 49.15 mg/dL (20.00-300.00); Total Protein Urine Random 20.4 mg/dL (<=11.9)
[2023-03-13 14:30] LABS: Body Surface Area 1.73; Total Protein 24 Hour Urine 499.8 mg/24hr (<=149.1); Total Volume 24 Hour Urine 2450 mL/24hr
[2023-03-13 14:34] LABS: Creatinine Clearance Urine 58.57 mL/min (75.00-115.00)
== END 2023-03-13 13:42 | disposition home or self-care (01) ==
LOC: LAB 13:41
PROVIDERS: PCP Family Medicine; Visit Provider Obstetrics & Gynecology
DX: O16.5 Unspecified maternal hypertension, complicating the puerperium (principal)
CPT/HCPCS: 36415; 82575; 84156

== ENCOUNTER 2023-10-30 08:49 | Emergency (ER) | payer OTHER, SELFPAY ==
--- OUTSIDE RECORDS SUMMARY | 2023-10-30 08:54 | XMS_ITS | CCD ---
Author Organization [facility] Care Team Providers Care Director Medical Surgical Name Role Phone PRIYA CASTAÑEDA Primary Care Unavailable NADDAF, NADINE Gao Referring Unavailable NADDAF, NADINE A Admitting Unavailable NADDAF, NADINE A Attending Unavailable PRIYA CASTAÑEDA Primary Care Unavailable Tommy Bauman Attending Unavailable PRIYA CASTAÑEDA Primary Care Unavailable PRIYA CASTAÑEDA Referring Unavailable Tommy Bauman Attending Unavailable ZORAIDA BURNS Referring Unavailable PRIYA CASTAÑEDA Primary Care Unavailable Tommy Bauman Attending Unavailable PRIYA CASTAÑEDA Primary Care Unavailable KLARISSA ., DR VALERIO Attending Unavailable JENNER, DR INDRA Craig Consulting Unavailable KEON, DR HUFF Primary Care Unavailable KLARISSA ., DR VALERIO Admitting Unavailable KLARISSA ., DR VALERIO Consulting Unavailable ROSE ., COREY Admitting Unavailable ROSE ., COREY Consulting Unavailable ROSE ., COREY Attending Unavailable KEON, DR HUFF Primary Care Unavailable KLARISSA ., DR VALERIO Attending Unavailable KEON, DR HUFF Primary Care Unavailable KLARISSA ., DR VALERIO Admitting Unavailable KLARISSA ., DR VALERIO Consulting Unavailable Priya Castañeda MD Primary Care Provider PROVIDER, UNKNOWN Attending Unavailable PROVIDER, UNKNOWN Admitting Unavailable PRIYA CASTAÑEDA Attending Unavailable COREY ROSE Attending Unavailable Medications Current Medications Medication Drug Class(es) Dates Sig (Normalized) Sig (Original) amitriptyline hydrochloride 10 mg oral tablet (1 source) Tricyclic Antidepressant Start: 10-29-2021 amitriptyline 10 mg tablet (Elavil) Take 3 tablets by mouth every night at bedtime. For 1 week, then increase to 4 (40mg) x 1 week and 5 tabs, 50 mg 85 tablet 0 10/29/2021 Active omeprazole 40 mg delayed release oral capsule (1 source) Proton Pump Inhibitor Start: 02-11-2022 take 1 capsule by mouth once daily omeprazole 40 mg capsule,delayed release (Prilosec) Take 1 capsule by mouth once daily. 30 capsule 5 02/11/2022 Active Problems Active Problems Problem Classification Problem Date Documented Da te Episodic/Chronic Menstrual disorders (4 sources) Irregular menstruation, unspecified; Translations: [IRREGULAR MENSTRUATION UNSPECIFIED] Onset: 07-22-2022 Chronic Other and delivery including normal (9 sources) Encounter for supervision of normal , unspecified, second trimester; Translations: [Encounter for supervision of other normal , first trimester] Onset: 07-26-2022 Episodic Past or Other Problems Problem Classification Problem Date Documented Date Episodic/Chronic Abdominal pain (2 sources) Generalized abdominal pain; Translations: [Generalized abdominal pain] Onset: 10-29-2021 10-29-2021 Episodic Other nutritional; endocrine; and metabolic disorders (1 source) Unintentional weight loss; Translations: [Abnormal weight loss] Onset: 10-29-2021 10-29-2021 Episodic Other nutritional; endocrine; and metabolic disorders (1 source) Decreased body mass index; Translations: [Body mass index (BMI) pediatric, less than 5th percentile for age] Onset: 10-30-2021 10-30-2021 Episodic Residual codes; unclassified (1 source) Less than 8 weeks gestation of ; Translations: [< 8 WEEKS GESTATION ] Onset: 07-26-2022 Episodic Results Test Name Value Interpretation Reference Range Facility AFP MATERNAL FOR SPINA BIFID Aon 10-16-2022 AFP MoM 1.08 Normal [facility] Comment on above: Performed By: #### A FPMAT #### [facility] [address] [address] [address] Valeria Mesa AFP Value 61.4 ng/mL Normal [facility] Comment on above: Performed By: #### A FPMAT #### [facility] [address] [address] [address] Valeria Mesa AFP, Serum for Spina Bifida Report Normal [facility] Comment on above: Performed By: #### A FPMAT #### [facility] [address] [address] [address] Valeria Mesa Comment Comment Normal [facility] Comment on above: Result Comment: Rustam Cooper, Ph.D., [facility] Director . References: Available Upon Request. . Multiples Of Median Cutoffs For AFP Elevations Waldrop 2.5 Black 2.8 IDD 2.0 Twins 4.5 Abbreviation Definitions IDD - Insulin Dep Diabetes OSBR - Open Spina Bifida Risk . For further inquiries contact [facility] at [phone]. . This test was developed and its performance characteristics determined by [employer]. It has not been cleared or approved by the Food and Drug Administration. Performed By: #### A FPMAT #### [facility] [address] [place] [address] Dr. Valeria French Age Collection Date 18.4 weeks [facility] Comment on above: Performed By: #### A FPMAT #### [facility] [address] [place] [address] Dr. Valeria Mesa Gestat, Age Based on LMP [facility] Comment on above: Result Comment: Reca lculations are not recommended when gestational dating by LMP and ultrasound are within 10 days. Performed By: #### A FPMAT #### [facility] [address] [place] [address] Dr. Valeria Mesa Insulin Dep Diabetes No Normal [facility] Comment on above: Performed By: #### A FPMAT #### [facility] [address] [place] [address] Dr. Valeria Mesa Interpretation Comment Normal [facility] Comment on above: Result Comment: Inte rpretation: Screen Negative . This result is screen negative for OSB. The AFP MoM calculated is based on the gestational age provided. MS-AFP can identify up to 80% of open neural tube defects. Closed neural tube defects and some open defects may not be detected by this test. This test does not screen for Down Syndrome or Trisomy 18. If screening for Down Syndrome or Trisomy 18 is desired, contact [facility] to discuss available options. The [employer] recommends amniocentesis be offered to women age 35 and older. Performed By: #### A FPMAT #### [facility] [address] [place] [address] Dr. Valeria Mesa [age] Normal [facility] Comment on above: Performed By: #### A FPMAT #### [facility] [address] [address] [address] Valeria Mesa Multiple Gestation No Normal [facility] Comment on above: Performed By: #### A FPMAT #### [facility] [address] [address] [address] Valeria Mesa OSBR Risk 1 IN 9540 Normal [facility] Comment on above: Performed By: #### A FPMAT #### [facility] [address] [address] [address] Valeria Mesa PDF . [facility] Comment on above: Performed By: #### A FPMAT #### [facility] [address] [place] [address] Dr. Valeria Mesa Race [facility] Comment on above: Performed By: #### A FPMAT #### [facility] [address] [place] [address] Dr. Valeria Mesa Test Results: Negative Normal [facility] Comment on above: Performed By: #### A FPMAT #### [facility] [address] [place] [address] Dr. Valeria Mesa HEP B SURFACE ANTIGEN SCREEN on 08-14-2022 HBsAg Screen Negative Normal Negative [facility] Comment on above: Performed By: #### H BSANS #### [facility] [address] [place] [address] Dr. Valeria Mesa HEPATITIS C VIRUS AB W/ REFL EX QUANTon 08-14-2022 Interpretation: Comment Normal [facility] Comment on above: Result Comment: Not infected with HCV unless early or acute infection is suspected (which may be delayed in an immunocompromised individual), or other evidence exists to indicate HCV infection. Performed By: #### H CVPCRR #### [facility] [address] [place] [address] Dr. Valeria Mesa HCV AB Non-Reactive Normal Non Reactive [facility] Comment on above: Performed By: #### H CVPCRR #### [facility] [address] [place] [address] Dr. Valeria Mesa HIV 1 AND 2 WITH REFLEXon HIV Screen 4th Generation wRfx Non-Reactive Normal Non Reactive [facility] Comment on above: Result Comment: HIV Negative HIV-1/HIV-2 antibodies and HIV-1 p24 antigen were NOT detected. There is no laboratory evidence of HIV infection. Performed By: #### H IV12 #### [facility] [address] [place] [address] Dr. Valeria Mesa RPR QUANTon 08-14-2022 Rapid Plasma Reagin, Quant Non-Reactive Normal NonRea<1:1 [facility] Comment on above: Result Comment: Plea se Note: This test does not meet current guidelines for screening and diagnosis of syphilis. This test is intended for following treatment response in patients being treated for syphilis infection. To screen for syphilis infection, a reflex cascade that includes both RPR and a treponema-specific assay should be utilized, such as Treponema pallidum (Syphilis) Screening Alpine (297902) or Rapid Plasma Reagin (RPR) Test With Reflex to Quantitative RPR and Confirmatory Treponema pallidum Antibodies (069632). Performed By: #### R PRQ #### [facility] [address] [place] [address] Dr. Valeria Mesa RUBELLA AB IGGon 08-14-2022 Rubella Antibodies, IgG 5.32 index Normal Immune >0.99 [facility] Comment on above: Result Comment: Non- immune <0.90 Equivocal 0.90 - 0.99 Immune >0.99 Performed By: #### R UBIGG #### [facility] [address] [place] [address] Dr. Valeria Mesa BOX TEST SENT OUTon 08-14-19 SENT TO REF LAB 08/13/22 Normal [facility] Comment on above: Performed By: #### B OX #### [facility] [address] [place] [address] Dr. Valeria Mesa CBC AUTO DIFFon 08-13-2022 BASO # 0.0 103/ul Normal 0.0-0.1 [facility] Comment on above: Performed By: #### C BC #### [facility] [address] [place] [address] Dr. Valeria Mesa Basophils/100 WBC (Bld) 0.2 % Normal 0.2-2.0 [facility] Comment on above: Performed By: #### C BC #### [facility] [address] [place] [address] Dr. Valeria Mesa EO # 0.1 103/ul Normal 0.0-0.7 [facility] Comment on above: Performed By: #### C BC #### [facility] [address] [place] [address] Dr. Valeria Mesa Eosinophils/100 WBC (Bld) 1.1 % Normal 0.9-7.0 [facility] Comment on above: Performed By: #### C BC #### [facility] [address] [place] [address] Dr. Valeria Mesa Erythrocyte distribution width (RBC) [Ratio] 15.2 % Critically high 11.0-15.0 [facility] Comment on above: Performed By: #### C BC #### [facility] [address] [place] [address] Dr. Valeria Mesa Hematocrit (Bld) [Volume fraction] 38.6 % Normal 36.0-48.0 [facility] Comment on above: Performed By: #### C BC #### [facility] [address] [place] [address] Dr. Valeria Mesa Hemoglobin (Bld) [Mass/Vol] 11.9 g/dL Critically low 12.0-16.0 [facility] Comment on above: Performed By: #### C BC #### [facility] [address] [place] [address] Dr. Valeria Mesa IG # 0.01 10e3/ul Normal 0.00-0.03 [facility] Comment on above: Performed By: #### C BC #### [facility] [address] [place] [address] Dr. Valeria Mesa IG % 0.2 % Normal 0.0-0.5 [facility] Comment on above: Performed By: #### C BC #### [facility] [address] [place] [address] Dr. Valeria Mesa LYMPH # 1.8 103/ul Normal 1.2-3.8 [facility] Comment on above: Performed By: #### C BC #### [facility] [address] [place] [address] Dr. Valeria Mesa Lymphocytes/100 WBC (Bld) 32.1 % Normal 20.5-60.0 [facility] Comment on above: Performed By: #### C BC #### [facility] [address] [place] [address] Dr. Valeria Mesa MANUAL DIFF REQ NO Normal [facility] Comment on above: Performed By: #### C BC #### [facility] [address] [place] [address] Dr. Valeria Mesa MCH (RBC) [Entitic mass] 23.5 pg Critically low 26.7-34.0 [facility] Comment on above: Performed By: #### C BC #### [facility] [address] [place] [address] Dr. Valeria Mesa MCHC (RBC) [Mass/Vol] 30.8 g/dL Normal 29.9-35.2 [facility] Comment on above: Performed By: #### C BC #### [facility] [address] [place] [address] Dr. Valeria Mesa MCV (RBC) [Entitic vol] 76.3 fL Critically low 81.0-99.0 [facility] Comment on above: Performed By: #### C BC #### [facility] [address] [place] [address] Dr. Valeria Mesa MONO # 0.3 103/ul Normal 0.3-0.8 [facility] Comment on above: Performed By: #### C BC #### [facility] [address] [place] [address] Dr. Valeria Mesa Monocytes/100 WBC (Bld) 5.4 % Normal 1.7-12.0 [facility] Comment on above: Performed By: #### C BC #### [facility] [address] [address] [address] Valeria Mesa NEUT # 3.4 103/ul Normal 1.4-6.5 [facility] Comment on above: Performed By: #### C BC #### [facility] [address] [place] [address] Dr. Valeria Mesa Neutrophils/100 WBC (Bld) 61.0 % Normal 43.0-75.0 [facility] Comment on above: Performed By: #### C BC #### [facility] [address] [place] [address] Dr. Valeria Mesa Platelet mean volume (Bld) [Entitic vol] 8.9 fL Critically low 9.5-13.5 [facility] Comment on above: Performed By: #### C BC #### [facility] [address] [place] [address] Dr. Valeria Mesa PLT 310 103/ul Normal 150-450 [facility] Comment on above: Performed By: #### C BC #### [facility] [address] [place] [address] Dr. Valeria Mesa RBC 5.06 106/ul Normal 4.20-5.40 [facility] Comment on above: Performed By: #### C BC #### [facility] [address] [place] [address] Dr. Valeria Mesa WBC 5.5 103/ul Normal 4.0-11.0 [facility] Comment on above: Performed By: #### C BC #### [facility] [address] [place] [address] Dr. Valeria Mesa CULTURE URINEon 08-13-2022 CULTURE URINE Culture Observations : NO GROWTH. Normal [facility] Comment on above: Performed By: #### A FPMAT #### [facility] [address] [place] [address] Dr. Valeria Mesa GLYCOHEMOGLOBIN A1Con 2022 ADA RECOMMENDATION SEE BELOW Normal [facility] Comment on above: Result Comment: ADA RECOMMENDED LIMIT 4.0 - 6.0 ADA THERAPEUTIC TARGET < 7.0 ACTION SUGGESTED > 7.0 Performed By: #### A 1C #### [facility] [address] [place] [address] Dr. Valeria Mesa Glucose [Mass/Vol] 97 mg/dL Normal [facility] Comment on above: Performed By: #### A 1C #### [facility] [address] [place] [address] Dr. Valeria Mesa HbA1c (Bld) [Mass fraction] 5.0 % Normal 4.5-6.2 [facility] Comment on above: Performed By: #### A 1C #### [facility] [address] [place] [address] Dr. Valeria Mesa TSHon 08-13-2022 TSH 0.794 uIU/mL Normal 0.516-4.130 [facility] Comment on above: Performed By: #### A FPMAT #### [facility] [address] [place] [address] Dr. Valeria Mesa TYPE AND SCREENon 08-13-2022 TYPE AND SCREEN Negative Normal [facility] Comment on above: Performed By: #### T NS #### [facility] [address] [place] [address] Dr. Valeria Mesa US PREG TVon 07-22-2022 US PREG TV EXAMINATION: US PREG TV HISTORY: Missed period COMPARISON: No relevant comparison available. FINDINGS: Waldrop intrauterine gestation Gestational sac: 1.49 cm, 5 weeks 5 days CRL: 5.8 mm, 6 weeks 3 days Yolk sac: 2.6 mm Heart rate: 120 bpm The cervix is closed measuring 3.2 cm The uterus is anteverted, anteflexed. Area of hypoechogenicity adjacent to the gestational sacr measuring 1.7 x 1.6 cm The ovaries are normal in appearance Clinical age: Unknown Ultrasound age: 6 weeks 3 days Ultrasound BUTCH: 03/14/2023 IMPRESSION: Viable waldrop intrauterine gestation measuring 6 weeks 3 days 1.7 cm subchorionic hematoma Electronically authenticated by: INDRA KUMAR Date: 2022-07-22 16:04 Normal [facility] Surgical Pathologyon Surgical Pathology (NOTE) -- Diagnosis -- A. ESOPHAGUS, BIOPSY (SQUAMOUS MUCOSA): -NO HISTOLOGIC ABNORMALITY IDENTIFIED. B. DUODENUM, BIOPSY: -NO HISTOLOGIC ABNORMALITY IDENTIFIED. C. STOMACH, BIOPSY: -MINIMAL CHRONIC INFLAMMATION. D. TERMINAL ILEUM, BIOPSY: - NO HISTOLOGIC ABNORMALITY IDENTIFIED. E. COLORECTUM, BIOPSY (RIGHT): -NO HISTOLOGIC ABNORMALITY IDENTIFIED. F. COLORECTUM, BIOPSY (LEFT): -NO HISTOLOGIC ABNORMALITY IDENTIFIED. G. COLORECTUM, BIOPSY (RECTUM): -NO HISTOLOGIC ABNORMALITY IDENTIFIED. Hi Mcfarlane M.D. Electronically Signed Out [facility]/09/02/2021 Clinical Information Pre-op Diagnosis: ABDOMINAL PAIN Operative Findings: ESOPHAGUS; DUODENUM; GASTRIC BX; TERMINAL ILEUM BX; RIGHT COLON BIOPSY; LEFT COLON BIOPSY; RECTUM BIOPSY Operation Performed: EGD BIOPSY, COLONOSCOPY WITH BIOPSY Source of Specimen A: ESOPHAGUS B: DUODENUM C: GASTRIC BX D: TERMINAL ILEUM BX E: RIGHT COLON BX F: LEFT COLON BX G: RECTUM BIOPSY Gross Description A. LETICIA DONNA, ESOPHAGUS Six verma-white tissue fragments from 0.2 to 0.3 cm and are 1.2 x 0.8 x 0.1 cm in aggregate. Entirely 1cs. B. LETICIA WAFLORES, DUODENUM Six verma-white tissue fragments from 0.1 to 0.2 cm and are 1.3 x 0.7 x 0.1 cm in aggregate. Entirely 1cs. C. LETICIA DONNA, GASTRIC BX Two verma-white tissue fragments, 0.2 x 0.2 x 0.1 cm and 0.5 x 0.2 x 0.1 cm. Entirely 1cs. D. LETICIA DONNA, TERMINAL ILEUM BX Three verma-white tissue fragments from 0.2 to 0.3 cm and are 1.2 x 0.3 x 0.1 cm in aggregate. Entirely 1cs. E. LETICIA DONNA, RIGHT COLON BIOPSY Three verma-white tissue fragments from 0.3 to 0.4 cm and are 1.1 x 0.4 x 0.1 cm in aggregate. Entirely 1cs. F. LETICIA DONNA, LEFT COLON BIOPSY Two verma-white tissue fragments, 0.2 x 0.1 x 0.1 cm and 0.3 x 0.2 x 0.1 cm. Entirely 1cs. G. LETICIA WAMMES, RECTUM BIOPSY Two verma-white tissue fragments, 0.3 x 0.2 x 0.1 cm and 0.6 x 0.2 x 0.1 cm. Entirely 1cs. jg tm Microscopic Description A. Squamous and no glandular mucosa is present. No ulcer, intraepithelial eosinophils, intestinal metaplasia, dysplasia, or neoplasm is detected. B, D. Small intestine mucosa present, negative for villous atrophy, intraepithelial lymphocytosis, ulcer, fissure, granuloma, and neoplasm. Microscopic features of celiac disease are not detected. C. Gastric tissues negative for ulcer, intestinal metaplasia, dysplasia, and neoplasm. By routine JOSE stain, no organisms are detected with morphology of Helicobacter. E-G. Two levels examined showing colon mucosal tissues negative for pseudomembrane, ulcer, fissure, granuloma, significant cryptitis, crypt abscess, mucosal necrosis, crypt architectural distortion, fibrosis, intraepithelial lymphocytosis, dysplasia and malignancy. Features of microscopic (lymphocytic) colitis not detected. SURGICAL PATHOLOGY CONSULTATION Patient Name: LETICIA CASTELLANO [facility] Rec: [id number] Path Number: [id number] [facility] ANATOMIC PATHOLOGY [address] [place] [id number] [facility] Comment on above: Performed By: #### P PPVS #### [address] [address] Program Manager Slp: Romaine Mcfarlane MD [id number] 08-29-2021 SARS-CoV-2 (COVID-19) RNA ILAN+probe Ql (Unsp spec) [facility] Comment on above: Performed By: #### C OVID #### [address] [address] Program Manager Slp: Romaine Mcfarlane MD [address] [place] [address] Program Manager Slp: Indra Granados MD SARS-CoV-2 (COVID-19) RNA ILAN+probe Ql (Unsp spec) Not detected [facility] Comment on above: Result Comment: The specimen is NEGATIVE for SARS-CoV-2, the novel coronavirus associated with COVID-19. A negative result does not rule out COVID-19. [employer]ie SARS-CoV-2 for use on the [employer]/88[employer] is a real-time RT-PCR test intended for the qualitative detection of nucleic acids from SARS-CoV-2 in clinician-collected nasal, nasopharyngeal, and oropharyngeal swab specimens from individuals who meet COVID-19 clinical and/or epidemiological criteria. [employer] SARS-CoV-2 is for use only under Emergency Use Authorization (EUA) in laboratories certified under Clinical Laboratory Improvement Amendments of 1988 (CLIA), 42 U.S.C. ?263a, that meet requirements to perform high or moderate complexity tests. An individual without symptoms of COVID-19 and who is not shedding SARS-CoV-2 virus would expect to have a negative (not detected) result in this assay. Fact sheet for Healthcare Providers: https://www.fda.gov/media/515044/download Fact sheet for Patients: https://www.fda.gov/media/177460/download METHODOLOGY: RT-PCR Performed By: #### C OVID #### [address] [place] [address] Program Manager Slp: Romaine Mcfarlane MD [facility] [address] [place] [address] [place] [address] Program Manager Slp: Indra Granados MD [id number] 08-28-2021 SARS-CoV-2 (COVID-19) RNA ILAN+probe Ql (Unsp spec) .NASOPHARYNGEAL SWAB Normal [facility] Comment on above: Performed By: #### C OVID #### [facility] [address] [place] [address] Program Manager Slp: Romaine Mcfarlane MD [facility] [address] [place] [address] Program Manager Slp: Indra Granados MD Progress Noteon 01-05-2019 [employer] Supervisor Authentication Interface Message Text Patient ID: Leticia Castellano is a 13 y.o. female. Her chief complaint(s) include: Abdominal Pain (Going on for 1 year- comes and goes @ worst pain is 10) Assessment 1. Abdominal pain, unspecified abdominal location 2. Symptoms involving urinary system Leticia is our 13 year old previously healthy female presenting for abdominal pain. She just started her menstrual cycle in November 2018. She is being actively followed by GI and endocrine and work up has remained benign. Denies any symptoms of anxiety or depression, but remains a differential at this time. Her physical exam is benign. Leticia has a weak history and is unsure of current details of her symptoms. Will assign a abdominal pain journal are reassess in 2 months. Plan Leticia was seen today for abdominal pain. Diagnoses and all orders for this visit: Abdominal pain, unspecified abdominal location - AMB Referral To Adolescent Medicine Symptoms involving urinary system - POCT urinalysis dipstick Return in about 2 months (around 03/07/2019) for Abdominal pain. I personally performed turner portions of the history and physical examination of this patient and discussed the management plan with the resident. I reviewed the resident's note and agree with the documented findings and plan of care, except as noted by strikethrough or addition. Akua Medrano DO 1:31 PM 01/09/2019 Subjective Leticia Castellano is being seen today for a consultative service at the request of Dr Santos for medical advice regarding abdominal pain. HPI Comments: Abdominal pain and constipation since she was little. Starting getting worse about a year ago. Mom reports she complains about it once a week. Leticia reports she doesn't know how often it is happening. She does cry and reports a stabbing pain around her belly button that comes and goes. No N/V or difficulty eating. Does have diarrhea intermittently, occasionally has constipation. In the past she did have constipation that was relieved by Miralax that is now not as bad. No difficulty urinating. Does not know if there is any blood, mucous, or the color of her stool. Denies any straining. She had her 1st period in November 2018. Mom's first period at 9. Sister period at 10. Aunt at 14. Changed tampons daily and lasted for 4 days. Mom reports that she did have normal periods in the past. Doesn't endorse any abdominal pain when her first period started. Denies any cramping. History: Born FT with nuchal cord wrapped around her neck, . No prolonged nursery stay, no NICU stay. [facility] in [facility] PMHx: Constipation PSHx: None FHx: 1st cousin: Chrons. T2DM, Uterine Ca She is accompanied by her mother and sibling(s). No chief controller was used. Abdominal Pain The onset has been gradual. (1 year). Pattern: Intermittent The course is worsening. The symptoms are described as severe. The highest pain severity has been 8/10. The symptoms are characterized as sharp. The location of the pain is in the periumbilical area. The pain has no radiation. The symptoms are aggravated by nothing. Associated symptoms include diarrhea. Associated symptoms do not include fever, decreased appetite, weight loss, anorexia, rectal pain, nausea, vomiting, dysuria and urinary changes. The patient's diet consists of a well balanced diet. No LMP recorded. Patient is premenarcheal. Menses - Desc: New just started in November. The patient does not currently have a significant other. She dates males. The patient has never had sex. Typically, she uses none as her current contraceptive method. The previous evaluations did not include CBC, CT scan and ultrasound. Symptoms are relieved by nothing. Primary Care Review of Systems Objective Vital Signs 01/05/19 0910 BP: 112/64 Pulse: 69 Weight: 47.4 kg Height: 167.6 cm Body mass index is 16.87 kg/m . Physical Exam Constitutional: She appears well. She is active. No distress. HENT: Head: Atraumatic. Right Ear: Tympanic membrane and external ear normal. Left Ear: Tympanic membrane and external ear normal. Nose: Nose normal. Mouth/Throat: Mucous membranes are moist. Dentition is normal. No pharynx erythema. No tonsillar exudate. Oropharynx is clear. Eyes: Conjunctivae and EOM are normal. No strabismus. Pupils are equal, round, and reactive to light. Neck: Normal range of motion. Neck supple. Thyroid normal. No neck adenopathy. Cardiovascular: Normal rate, regular rhythm, S1 normal and S2 normal. Pulses are palpable. Heart murmur not heard. Pulmonary/Chest: Breath sounds normal. No respiratory distress. She has no wheezes. Exhibits no deformity. Steve stage (breast) is 5. Abdominal: Soft. Bowel sounds are normal. She exhibits no distension and no mass. There is no hepatosplenomegaly. There is no tenderness. Genitourinary: Steev stage (genital) is 5. Normal female external genitalia. Musculoskeletal: Normal range of motion. Back: She exhibits no scoliosis. Neurological: She is alert. She has normal strength. She exhibits normal muscle tone. Gait normal. Skin: Capillary refill takes less than 3 seconds. No rash noted. There is no pallor. Skin is warm. Vitals reviewed: Blood pressure 112/64, pulse 69, height 167.6 cm, weight 47.4 kg. Last Result POCT urinalysis dipstick Collection Time: 01/05/19 9:20 AM Result Value Ref Range POCT, Leukocytes, Urine Trace (A) Negative POCT Nitrite, Urine Negative Negative POCT Protein, Urine Trace Negative - Trace mg/dl POCT Urine pH 7.0 5.0 - 8.0 pH POCT Blood, Urine Negative Negative POCT Urine Specific [place] 1.020 1.005 - 1.030 POCT Ketones, Urine Negative Negative mg/dl POCT Glucose, Urine Negative Negative mg/dl Jonelle Salazar, DO [facility] PGY-1 Pager: [phone] Volt: [phone] [id number] 01/05/2019 Normal [facility] Core Assembly Supervisor Authentication Interface Message Text We had the pleasure of seeing your patient, Leticia Castellano, in consultation at your request at the [facility] Endocrine clinic for evaluation and advice regarding primary amenorrhea. Leticia is a 13 y.o. 3 m.o. female who comes to the visit with her mother, maternal aunt and cousin. HPI: Leticia is a 13 y.o. 3 m.o. old girl referred for evaluation of primary amenorrhea. She was in gastroenterology clinic for evaluation of abdominal pain and was referred to endocrinology due to primary amenorrhea. Shayy started her first period in November 2018 one month after the endocrine referral was made. She may have started with breast development earlier this year. She has had intermittent abdominal pain for most of her life which was initially thought to be related to constipation and then raised concern to get evaluated by GI. CT abdomen/pelvis was done in September 2017 which showed normal uterus and follicular cyst on one of the ovaries. Mother reports that Shayy also had a pelvic ultrasound done at [facility] which was normal. No history of acne, excessive hair growth on the face/body, change in voice, fatigability. History is positive for intermittent headaches along with abdominal pain with no specific exacerbating or relieving factors. No family history of PCOS or adrenal issues. She has had a good growth spurt over the past couple of years. Always tracked on the lower percentiles for BMI. PAST MEDICAL HISTORY: Leticia was born at full term via vaginal delivery. history was unremarkable, birthweight of 7 lbs 8 oz, length of 21 inches. Medical problems: None Hospitalizations/Surge kyle: None DEVELOPMENTAL HISTORY: Appropriate SOCIAL HISTORY: Leticia lives with parents and sibling. Leticia is in 9th grade. FAMILY HISTORY: Father: 5'8 , puberty ? Mother: 5'2 , menarche at 9 years Siblings: 17 yr old sister, menarche at 10 years Paternal: GF: GM: Maternal: GF: 5'7 GM: 5'9 Maternal aunt - 5'10 , 5'7 , 5'3 Maternal uncles- 6'1 , 6' ALLERGIES: Patient has no known allergies. CURRENT MEDICATIONS: Current Outpatient Medications: dicyclomine (BENTYL) 10 MG/5ML oral solution, Take 10 mL (20 mg) by mouth 3 times daily as needed (abdominal pain), Disp: 300 mL, Rfl: 1 hyoscyamine (LEVSIN) 0.125 MG/ML SOLN oral solution drops, Take 1 mL (0.125 mg) by mouth every 4 hours as needed (abdominal pain) (Patient not taking: Reported on 11/16/2018), Disp: 15 mL, Rfl: 1 REVIEW OF SYSTEMS: Comprehensive review of systems was performed and are as mentioned in the HPI. Pertinent negatives are as below. CONSTITUTIONAL: negative for fever, weight loss, weight gain, changes in appetite or fatigue EYES: negative for change in vision ENT: negative for difficulty swallowing RESPIRATORY: negative for difficulty breathing, wheezing CARDIOVASCULAR: negative for palpitations, dizziness, chest pain GI: negative for vomiting. Intermittent abdominal pain+ : negative for frequent urination and nocturia SKIN: negative for flushing, changes in skin temperature or texture MUSCULOSKELETAL: negative for joint pain/ swelling, muscle weakness NEURO: negative for headache, weakness, visual changes, tremors PSYCH: negative for sleep disturbances, mood changes, depression, irritability PUBERTY: As above PHYSICAL EXAMINATION: Blood pressure 110/70, pulse 60, height 167.6 cm, weight 47.4 kg. 26 %ile (Z= -0.64) based on CDC (Girls, 2-20 Years) [id number] data using vitals from 01/05/2019. Blood pressure percentiles are 52 % systolic and 64 % diastolic based on the December 2016 AAP Clinical Practice Guideline. Blood pressure percentile targets: 90: 124/78, 95: 128/82, 95 + 12 mmH/94. Body mass index is 16.87 kg/m . 8 %ile (Z= -1.38) based on CDC (Girls, 2-20 Years) BMI-for-age based on BMI available as of 01/05/2019. 80 %ile (Z= 0.85) based on CDC (Girls, 2-20 Years) [id number] data based on Stature recorded on 01/05/2019., Wt Readings from Last 4 Encounters: 01/05/19 47.4 kg (26 %, Z= -0.64)* 11/16/18 45.5 kg (19 %, Z= -0.87)* 09/21/18 46 kg (23 %, Z= -0.75)* * Growth percentiles are based on CDC (Girls, 2-20 Years) data. Ht Readings from Last 4 Encounters: 01/05/19 167.6 cm (80 %, Z= 0.85)* 11/16/18 167.2 cm (79 %, Z= 0.80)* * Growth percentiles are based on CDC (Girls, 2-20 Years) data. BP Readings from Last 4 Encounters: 01/05/19 110/70 (52 %, Z = 0.06 / 64 %, Z = 0.35)* 11/16/18 124/71 (91 %, Z = 1.33 / 69 %, Z = 0.49)* 09/21/18 137/69 *BP percentiles are based on the December 2016 AAP Clinical Practice Guideline for girls General: Well developed, well nourished, no acute distress Head: Atraumatic, normocephalic Eyes: PERRL, sclera and conjunctiva clear, EOMI Throat: Oropharnyx is clear without tonsillar inflammation or exudate, mucous membranes are moist Neck: Supple, no cervical lymphadenopathy, no thyromegaly Breast: Steve 4 Axilla: Hair present Cardiac: RRR, no murmurs Chest: symmetric. Clear to auscultation bilaterally Abdomen: Nondistended, nontender, BS+, no organomegaly noted Genitourinary: Deferred Skin: Warm, dry, no rashes noted, brisk cap refill Neurological: Alert and oriented, no focal deficits Extremities: Full ROM in all extremities LABS REVIEWED: Ref. Range 09/21/2018 03:00 09/21/2018 12:10 ESR (Sed Rate) Latest Units: mm 10 ESR Interpretation Latest Units: NA ----- T4, Free Latest Ref Range: 0.8 - 1.5 ng/dL 1.4 TSH Latest Ref Range: 0.350 - 5.500 uIU/mL 3.360 Total Bilirubin Latest Ref Range: 0.0 - 1.0 mg/dl 0.8 ALT Latest Ref Range: 0 - 31 U/L 14 AST Latest Ref Range: 0 - 31 U/L 22 Lipase Latest Ref Range: 16 - 63 U/L 41 Alkaline Phosphatase Latest Ref Range: 50 - 162 U/L 161 C-Reactive Protein Latest Ref Range: 0.0 - 1.0 mg/dL <0.5 Sodium Latest Ref Range: 133 - 145 mEq/L 137 Potassium Latest Ref Range: 3.3 - 5.1 mEq/L 3.3 Chloride Latest Ref Range: 96 - 108 mEq/L 105 Carbon Dioxide Latest Ref Range: 22.0 - 29.0 mEq/L 23.3 BUN Latest Ref Range: 4 - 19 mg/dL 9 Glucose Latest Ref Range: 70 - 99 mg/dL 95 Calcium Latest Ref Range: 7.6 - 11.0 mg/dL 9.5 Protein, Total Latest Ref Range: 5.9 - 8.4 g/dL 8.2 Albumin Latest Ref Range: 3.2 - 4.5 g/dL 4.8 (H) Creatinine Latest Ref Range: 0.50 - 0.80 mg/dL 0.53 eGFR Latest Units: NA see below Color Ur Latest Units: NA Straw Character Latest Units: NA Clear Specific gravity Latest Ref Range: 1.005 - 1.030 NA 1.011 Leukocyte Esterase Ur Latest Ref Range: Negative leuk/ul NEGATIVE Nitrites Latest Ref Range: Negative mg/dl NEGATIVE pH Ur Latest Ref Range: 5.0 - 8.0 NA 6.0 Hemoglobin Ur Latest Ref Range: Negative RBC's/uL NEGATIVE Protein Ur Latest Ref Range: Neg.-Trace mg/dL NEGATIVE Glucose Ur Latest Ref Range: Negative mg/dL NEGATIVE Ketones Ur Latest Ref Range: Negative mg/dL NEGATIVE Urobilinogen Latest Ref Range: Negative mg/dl 0.2 Bilirubin Ur Latest Ref Range: Negative mg/dL NEGATIVE WBC UR Latest Ref Range: 0.0 - 20.0 /uL 5.0 RBC, Urine Latest Ref Range: 0.0 - 20.0 /uL 5.0 Volume Ur Latest Ref Range: 12 ml 12 Mucous Ur Latest Units: NA Small Urinalysis Comment Latest Units: NA - Squamous Epithelial Cells Ur Latest Ref Range: 0 - 20 /uL 8 WBC Latest Ref Range: 4.5 - 13.0 10E9/L 5.9 Nucleated RBC Percent Latest Ref Range: -1.0 - 0.0 % 0.0 RBC Latest Ref Range: 4.10 - 4.80 10E12/L 5.31 (H) Hemoglobin Latest Ref Range: 12.0 - 15.0 g/dl 15.1 (H) Hematocrit Latest Ref Range: 37.0 - 46.0 % 44.3 MCV Latest Ref Range: 78.0 - 96.0 fl 83.4 MCH Latest Ref Range: 25.0 - 35.0 pg 28.4 MCHC Latest Ref Range: 31.0 - 37.0 % 34.1 RDW Latest Ref Range: 0.0 - 14.4 % 11.5 Platelets Latest Ref Range: 150 - 450 10E9/L 256 MPV Latest Units: fl 9.3 Differential Complete Latest Units: NA Automated % Neutrophils Latest Ref Range: 34.0 - 64.0 % 55.1 % Lymphocytes Latest Ref Range: 25.0 - 45.0 % 34.7 % Monocytes Latest Ref Range: 3.00 - 6.00 % 8.30 (H) % Eosinophils Latest Ref Range: 0.00 - 3.00 % 1.20 Basophils Latest Ref Range: 0.00 - 1.00 % 0.50 Neutrophil # Latest Units: 10E3/uL 3.3 % Immature Granulocyte Latest Units: % 0.20 Immunoglobulin A Latest Ref Range: 47 - 249 mg/dL 339 (H) Transglutaminase IgA Latest Ref Range: 0.00 - 20.00 Units <20.00 IMAGING: IMPRESSION: Leticia is a 13 y.o. 3 m.o. old girl referred for primary amenorrhea. Pubertal history, growth pattern suggestive of breast development at a normal age with spontaneous progression to menarche in November 2018 consistent with familial pattern. Anatomical abnormalities ruled out based on the history and imaging. Ovarian hyperandrogenism and non classic CAH unlikely based on the history and BMI. Recommend to monitor for spontaneous cycles. Discussed with Leticia and her family about normal pubertal progression and menstrual cycles, causes of delayed cycles, lab and imaging interpretation thus far, indication for additional evaluation and follow up. They voiced understanding. PLAN: Monitor clinically for spontaneous cycles No additional labs needed at this time Follow up in 8 months. If having 2-3 cycles over that period, visit can be postponed to 1 year. Counseling and/or coordination of care (face to face time in the office) was greater than 45 minutes which is more than 50% of the total time of 60 minutes spent on the encounter. Thank you for the opportunity to participate in the care of Leticia. If you have any questions, please do not hesitate to contact our office at [phone]. Orly Lenz MD [facility] [address] [place] [address] [place] [address] Normal [facility] Progress Noteon 11-16-2018 Core Assembly Supervisor Authentication Interface Message Text Leticia Castellano is here for new office visit for: Abdominal Pain She is accompanied by mother, sibling, aunt and cousin. No chief controller was used. History of Present Illness HPI Carline is here for complaints of abdominal pain. She has abdominal pains for several years. Had been placed on an acid medication in the past several years ago that did not help. Currently - There is no dysphagia, odynophagia, trouble swallowing, emesis, or epigastric abdominal pain. She is a picky eater over all. Pasta, chicken, rice, steak, potatoes. Stools - vary between constipation and diarrhea. No blood or mucous in the stools. Headaches - more recently. Has bilateral leg pains. She has not started her menstrual period as yet. No concerns of anxiety or stress. She does have a cousin with crohns disease. Was recently seen in ED at [facility] for the pain - 09/21/18 - blood work showed normal ESR/CRP; normal thyroid functions; normal CBC and CMP; normal urinalysis and normal celiac markers. There was concern for imperforate hymen given primary amenorrhea however external exam showed no evidence of this. Past Medical History No past medical history on file. Past Surgical History No past surgical history on file. Allergies No Known Allergies Medications Outpatient Encounter Medications as of 11/16/2018 Medication Sig Dispense Refill hyoscyamine (LEVSIN) 0.125 MG/ML SOLN oral solution drops Take 1 mL (0.125 mg) by mouth every 4 hours as needed (abdominal pain) (Patient not taking: Reported on 11/16/2018) 15 mL 1 No facility-administered encounter medications on file as of 11/16/2018. Family Medical History Family History Problem Relation Age of Onset Cancer Maternal Grandmother uterine, bone Asthma Neg Hx Bleeding Prob Neg Hx Colon Cancer Neg Hx Celiac Disease Neg Hx Colon Polyps Neg Hx Crohn's Disease Neg Hx Cystic Fibrosis Neg Hx Eosinophilic Esophagitis Neg Hx Gallbladder Disease Neg Hx Hirschsprung's disease Neg Hx Irritable Bowel Syndrome Neg Hx Kidney Disease Neg Hx Liver Disease Neg Hx Pancreatic Disease Neg Hx Stomach Ulcer(s) Neg Hx Thyroid Disease Neg Hx Ulcerative Colitis Neg Hx Social History Social History Socioeconomic History Marital status: Single Spouse name: None Number of children: None Years of education: None Highest education level: None Occupational History None Social Needs Financial resource strain: None Food insecurity: Worry: None Inability: None Transportation needs: Medical: None Non-medical: None Tobacco Use Smoking status: Never Smoker Smokeless tobacco: Never Used Substance and Sexual Activity Alcohol use: None Drug use: None Sexual activity: None Lifestyle Physical activity: Days per week: None Minutes per session: None Stress: None Relationships Social connections: Talks on phone: None Gets together: None Attends denominational service: None Active member of club or organization: None Attends meetings of clubs or organizations: None Relationship status: None Intimate partner violence: Fear of current or ex partner: None Emotionally abused: None Physically abused: None Forced sexual activity: None Other Topics Concern None Social History Narrative None Diet Social History Review of Systems Review of Systems Constitutional: Negative for recurrent fevers, weight loss, weight gain and malaise/fatigue. HENT: Negative for trouble swallowing. Eyes: Negative for blurred vision and double vision. Respiratory: Negative for coughing, wheezing and shortness of breath. Cardiovascular: Negative for heart murmur, heart problems, chest pain and palpitations. Endocrine: Negative for poor growth. Gastrointestinal: Positive for constipation, diarrhea and abdominal pain. Negative for soiling underpants, vomiting, heartburn, blood in stool, trouble swallowing and nausea. Neurological: Negative for headaches. Musculoskeletal: Negative for joint pain and back pain. Skin: Negative for rash, easy bruising and itching. Allergy/Immune: Negative for allergies, immune problems and frequent infections. Hematology: Negative for no easy bleeding, no anemia, no easy bruising and no adenopathy. Physical Examination Vitals: 11/16/18 1213 BP: 124/71 Pulse: 85 BP Readings from Last 2 Encounters: 11/16/18 124/71 (91 %, Z = 1.33 / 69 %, Z = 0.49)* 09/21/18 137/69 *BP percentiles are based on the December 2016 AAP Clinical Practice Guideline for girls Weight - Scale: 45.5 kg Height: 167.2 cm Body mass index is 16.28 kg/m . Physical Exam Constitutional: She appears well-developed and well-nourished. HENT: Mouth/Throat: Her mucous membranes are moist. Eyes: Her conjunctivae and EOM are normal. Neck: Her neck is supple. Theres is no no neck adenopathy. Cardiovascular: No murmur heard. Pulmonary/Chest: Effort normal and breath sounds normal. Abdominal: Her abdomen is soft. She exhibits no distension. Bowel sounds are normal. There is no tenderness. She displays no guarding and no rebound in her abdomen. There is no hepatosplenomegaly. Neurological: She is alert. Skin: Skin is warm. No jaundice or pallor. Lab Results Last BMP: Lab Results Component Value Date NA 137 09/21/2018 K 3.3 09/21/2018 CL 105 09/21/2018 CO2 23.3 09/21/2018 BUN 9 09/21/2018 GLU 95 09/21/2018 CREATININE 0.53 09/21/2018 CALCIUM 9.5 09/21/2018 Last CBC: Last Result CBC and differential Collection Time: 09/21/18 3:00 AM Result Value Ref Range WBC 5.9 4.5 - 13.0 10E9/L Nucleated RBC Percent 0.0 -1.0 - 0.0 % RBC 5.31 (H) 4.10 - 4.80 10E12/L Hemoglobin 15.1 (H) 12.0 - 15.0 g/dl Hematocrit 44.3 37.0 - 46.0 % MCV 83.4 78.0 - 96.0 fl MCH 28.4 25.0 - 35.0 pg MCHC 34.1 31.0 - 37.0 % RDW 11.5 0.0 - 14.4 % Platelets 256 150 - 450 10E9/L MPV 9.3 fl Comment: MPV is platelet range and age dependent Differential Complete Automated NA % Neutrophils 55.1 34.0 - 64.0 % % Lymphocytes 34.7 25.0 - 45.0 % % Monocytes 8.30 (H) 3.00 - 6.00 % % Eosinophils 1.20 0.00 - 3.00 % Basophils 0.50 0.00 - 1.00 % Neutrophil # 3.3 10E3/uL % Immature Granulocyte 0.20 % Comment: Immature Granulocyte Percent includes promyelocytes, myelocytes, and metamyelocytes. IG% > 1.0 indicates a left shift is present. With automated differentials, bands are included in the neutrophil count and not in the Immature Granulocyte Percent. Last CRP: C-Reactive Protein (mg/dL) Date Value 09/21/2018 <0.5 Last ESR: ESR (Sed Rate) (mm) Date Value 09/21/2018 10 Last Hepatic Function Results: Total Bilirubin (mg/dl) Date Value 09/21/2018 0.8 ALT (U/L) Date Value 09/21/2018 14 AST (U/L) Date Value 09/21/2018 22 Alkaline Phosphatase (U/L) Date Value 09/21/2018 161 Albumin (g/dL) Date Value 09/21/2018 4.8 (H) Protein, Total (g/dL) Date Value 09/21/2018 8.2 Path Report: No results found for: SURGPATH Celiac Panel: Last Results Tissue Transglutaminase Antibody, IgA Collection Time: 09/21/18 12:10 PM Result Value Ref Range Transglutaminase IgA <20.00 0.00 - 20.00 Units Comment: Negative: < 20 Units Weak Positive: 20-30 Units Moderate to Strong Positive: > 30 Units Total Serum, IgA Collection Time: 09/21/18 12:10 PM Result Value Ref Range Immunoglobulin A 339 (H) 47 - 249 mg/dL Comment: IgA repeated and verified. T4: Last Results T4, free Collection Time: 09/21/18 3:00 AM Result Value Ref Range T4, Free 1.4 0.8 - 1.5 ng/dL Comment: New Reference Ranges - effective 03/12/09. TSH: Last Results TSH Collection Time: 09/21/18 3:00 AM Result Value Ref Range TSH 3.360 0.350 - 5.500 uIU/mL Imaging Findings No results found. Assessment Leticia is a 13 yo girl seen in initial visit for abdominal pain that has been ongoing for several years. Symptoms are likely due to IBS with variations between constipation and diarrhea. Pt reports mostly lower pelvic pains, also some cramping pain. Discussed primary amenorrhea and concern for endocrine vs other pathology. Will start bentyl as needed for pain; refer to Endocrine; will continue GI follow up and plan for upper/lower endoscopy if issues persist. Mother and pt in agreement with the plans as below. Plan 1. Referral to endocrinology here 2. Bentyl up to 20 mg three times a day as needed 3. May need upper/lower endoscopy 4. Follow up in 3 months 5. Please call [phone] with questions or concerns Li Santos MD Pediatric Gastroenterology/Hepat ology [facility] Normal [facility] Immunoglobulin Aon 9 Immunoglobulin A 339 mg/dL High 47-249 [facility] Comment on above: Result Comment: IgA repeated and verified. Performed By: #### U ACOM #### [address] [address] Transglutaminase IgAon 09-22 Transglutaminase IgA <20.00 Normal 0.00-20.00 [facility] Comment on above: Result Comment: Negative: < 20 Units Weak Positive: 20-30 Units Moderate to Strong Positive: > 30 Units Performed By: #### U ACOM #### [address] [address] C-Reactive Proteinon 019 CRP [Mass/Vol] mg/L Normal 0.0-1.0 [facility] Comment on above: Result Comment: CRP determinations in neonates should be interpreted with caution. CRP may be elevated in circumstances not associated with inflammation (e.g. difficult delivery, pneumothorax). In premature neonates CRP levels may not rise to abnormal levels even if sepsis is present; some speculate that immature liver function decreases the ability to generate a CRP response. Performed By: #### C RP #### [address] [address] Comp Metabolic Panelon 09-21 Albumin [Mass/Vol] 4.8 g/dL High 3.2-4.5 [facility] Comment on above: Performed By: #### C MP #### [address] [address] ALP [Catalytic activity/Vol] 161 U/L Normal 50-162 [facility] Comment on above: Performed By: #### C MP #### [address] [address] ALT [Catalytic activity/Vol] 14 U/L Normal 0-31 [facility] Comment on above: Performed By: #### C MP #### [address] [address] AST [Catalytic activity/Vol] 22 U/L Normal 0-31 [facility] Comment on above: Performed By: #### C MP #### [address] [address] Bili,Total 0.8 mg/dl Normal 0.0-1.0 [facility] Comment on above: Result Comment: Premature : 1 Day 1.0-6.0 mg/dl 2 Day 6.0-8.0 mg/dl 3-5 Day 10.0-15.0 mg/dl Performed By: #### C MP #### [address] [address] Calcium [Mass/Vol] 9.5 mg/dL Normal 7.6-11.0 [facility] Comment on above: Performed By: #### C MP #### [address] [address] Chloride [Moles/Vol] 105 mmol/L Normal 96-108 [facility] Comment on above: Performed By: #### C MP #### [address] [address] CO2 [Moles/Vol] 23.3 mmol/L Normal 22.0-29.0 [facility] Comment on above: Performed By: #### C MP #### [address] [address] Creatinine [Mass/Vol] 0.53 mg/dL Normal 0.50-0.80 [facility] Comment on above: Result Comment: Premature 0.3-1.0 mg/dL Performed By: #### C MP #### [address] [address] Glucose [Mass/Vol] 95 mg/dL Normal 70-99 [facility] Comment on above: Result Comment: Criteria for Diagnosis of Diabetes(Effective 10/26/10): Fasting specimen (no caloric intake for at least 8 hours). <100 mg/dl Normal 100-125 mg/dl Increased Risk for Diabetes >125 mg/dl Diagnostic for Diabetes Random Glucose (any time of day without regard to last meal). >=200 mg/dl plus Classic Symptoms of Diabetes Performed By: #### C MP #### [address] [address] Potassium [Moles/Vol] 3.3 mmol/L Normal 3.3-5.1 [facility] Comment on above: Performed By: #### C MP #### [address] [phone] Protein [Mass/Vol] 8.2 g/dL Normal 5.9-8.4 [facility] Comment on above: Performed By: #### C MP #### [address] [id number] Sodium [Moles/Vol] 137 mmol/L Normal 133-145 [facility] Comment on above: Performed By: #### C MP #### [address] [id number] Urea nitrogen [Mass/Vol] 9 mg/dL Normal 4-19 [facility] Comment on above: Performed By: #### C MP #### [address] [id number] Complete Blood Counton 09-21 Differential Complete Automated Normal [facility] Comment on above: Performed By: #### C BC #### [address] [address] Basophils/100 WBC (Bld) 0.50 % Normal 0.00-1.00 [facility] Comment on above: Performed By: #### C BC #### [address] [address] Eosinophils/100 WBC (Bld) 1.20 % Normal 0.00-3.00 [facility] Comment on above: Performed By: #### C BC #### [address] [address] Erythrocyte distribution width (RBC) [Ratio] 11.5 % Normal 0.0-14.4 [facility] Comment on above: Performed By: #### C BC #### [address] [address] Hematocrit (Bld) [Volume fraction] 44.3 % Normal 37.0-46.0 [facility] Comment on above: Performed By: #### C BC #### [address] [address] Hemoglobin (Bld) [Mass/Vol] 15.1 g/dL High 12.0-15.0 [facility] Comment on above: Performed By: #### C BC #### [address] [address] Immature granulocytes/100 WBC (Bld) 0.20 % Normal [facility] Comment on above: Result Comment: Tina ture Granulocyte Percent includes promyelocytes, myelocytes, and metamyelocytes. IG% > 1.0 indicates a left shift is present. With automated differentials, bands are included in the neutrophil count and not in the Immature Granulocyte Percent. Performed By: #### C BC #### [address] [address] Lymphocytes/100 WBC (Bld) 34.7 % Normal 25.0-45.0 [facility] Comment on above: Performed By: #### C BC #### [address] [address] MCH (RBC) [Entitic mass] 28.4 pg Normal 25.0-35.0 [facility] Comment on above: Performed By: #### C BC #### [address] [address] MCHC (RBC) [Mass/Vol] 34.1 % Normal 31.0-37.0 [facility] Comment on above: Performed By: #### C BC #### [address] [address] MCV (RBC) [Entitic vol] 83.4 fL Normal 78.0-96.0 [facility] Comment on above: Performed By: #### C BC #### [address] [address] Monocytes/100 WBC (Bld) 8.30 % High 3.00-6.00 [facility] Comment on above: Performed By: #### C BC #### [address] [address] Neutrophils (Bld) [#/Vol] 3.3 10*3/uL Normal [facility] Comment on above: Performed By: #### C BC #### [address] [address] Neutrophils/100 WBC (Bld) 55.1 % Normal 34.0-64.0 [facility] Comment on above: Performed By: #### C BC #### [address] [address] Nucleated RBC/100 WBC (Bld) [Ratio] 0.0 % Normal -1.0-0.0 [facility] Comment on above: Performed By: #### C BC #### [address] [address] Platelet mean volume (Bld) [Entitic vol] 9.3 fL Normal [facility] Comment on above: Result Comment: MPV is platelet range and age dependent Performed By: #### C BC #### [address] [address] Platelets (Bld) [#/Vol] 256 10*3/uL Normal 150-450 [facility] Comment on above: Performed By: #### C BC #### [address] [address] RBC (Bld) [#/Vol] 5.31 10E12/L High 4.10-4.80 [facility] Comment on above: Performed By: #### C BC #### [address] [address] WBC (Bld) [#/Vol] 5.9 10*3/uL Normal 4.5-13.0 [facility] Comment on above: Performed By: #### C #### [address] [address] ED Provider Progress Noteon 09-21-2018 [employer] Supervisor Authentication Interface Message Text Leticia Castellano : 2005 Chief Complaint Patient presents with Abdominal Pain No Known Allergies DOS: 09/21/2018 12 y.o. Female with chronic abdominal pain of unknown etiology presenting with abdominal pain. Patient has had abdominal pain for a long time and patient has been seen multiple times in [facility] ED for abdominal pain over the last year. Most recently patient was seen in [place] ED 2 days ago for abdominal pain. US and KUB at that time was normal and patient was discharged to home. Patient states that the abdominal pain is suprapubic in nature. She states it is a sharp, stabbing pain that doesn't radiate. It is intermittent. Nothing makes the pain better. Nothing makes the pain worse. Patient has had extensive workup for abdominal pain including multiple US, X-ray, CT scans, and an MRI of abdomen and pelvis. No one has been able to identify source of abdominal pain. Patient hasn't been able to go to school for the last 3 days due to acute worsening of abdominal pain. No clear pattern to the pain. No identified foot triggers. No nausea or vomiting. Patient's stool habits vary from constipation to diarrhea. No relief following defecation. No blood in stool. Weight has been stable. Patient has an appointment with [facility] on 11/16. Patient has never had a period. Mom and sister had menarche at age 9-10. Patient has never had a pelvic exam. H: Lives at home with mom, dad, sister E: does well in school. E: she is a picky eater A: in track. Patient states that even when he belly hurts she is still able to participate in there track meets. Patient also enjoys hanging out with friends. D: patient states her mood has been good. She states she feels down when her stomach is hurting but denies depression. She denies stressors at home or school. S: denies ever being sexually active S: denies substance use. The history is provided by the patient and the mother. Review of Systems Constitutional: Positive for fatigue. Negative for appetite change and fever. HENT: Negative for congestion, ear pain, rhinorrhea and sore throat. Respiratory: Negative for cough and shortness of breath. Gastrointestinal: Positive for abdominal pain, constipation and diarrhea. Negative for anal bleeding, blood in stool, nausea and vomiting. Genitourinary: Negative for dysuria, flank pain, frequency, hematuria, menstrual problem and urgency. Skin: Negative for rash. Neurological: Positive for headaches. Negative for dizziness and light-headedness. History reviewed. No pertinent past medical history. History reviewed. No pertinent surgical history. Pediatric History Patient Guardian Status Mother: MARNI CASTELLANO Other Topics Concern Not on file Social History Narrative Not on file ED Triage Vitals Date and Time Temp Temp src Pulse Resp BP SpO2 Weight User 09/21/18 0053 36.5 C (97.7 F) Temporal 75 20 137/69 100 % 46 kg KVP Physical Exam Constitutional: She appears well-developed and well-nourished. She does not appear ill. No distress. HENT: Head: Normocephalic and atraumatic. Mouth/Throat: Oropharynx is clear and moist. No oropharyngeal exudate. Eyes: Pupils are equal, round, and reactive to light. EOM are normal. No scleral icterus. Cardiovascular: Normal rate and regular rhythm. Exam reveals no gallop and no friction rub. No murmur heard. Pulmonary/Chest: Effort normal and breath sounds normal. She has no wheezes. She has no rhonchi. She has no rales. Abdominal: Soft. Normal appearance and bowel sounds are normal. She exhibits no distension and no mass. There is tenderness in the suprapubic area. There is no rigidity, no rebound and no CVA tenderness. Genitourinary: Vagina normal. No vaginal discharge found. Genitourinary Comments: On external genital exam introitus is normal. No cystic lesions or masses Skin: Skin is warm and dry. Capillary refill takes less than 2 seconds. Nursing note and vitals reviewed. Procedures MDM ED Course: Diagnosis' considered: imperforate hymen, celiac disease, hypothyroidism, UTI, chronic cystitis Labs/Radiology: CBC, CMP, CRP, ESR, T4, TSH, lipase, celiac panel, Consults: No orders of the defined types were placed in this encounter. Medical Record/Transferring Institution Record: N/A Treatment/Reassessment : Discussed with family that given the chronic nature or abdominal pain and the extensive workup completed that we are unlikely to determine etiology in ED tonight. Patient unlikely to benefit from further imaging given multiple modalities of imaging previously completed. 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 External exam normal. Discussed with family that GI seems like an appropriate next step. Will obtain basic laboratory workup typically ordered by GI so that these results will be available to GI physician. Will place IV with lab draw and give toradol to try to offer pain relief. Discussed with family importance of gathering reports of previous imagining studies prior to GI appointment so those results can be reviewed. CBC, CMP, CRP, Lipase were unremarkable. Discussed results with family. Patient's pain minimally improved following toradol. Patient given script for levsin for home going. Patient discharged to home. Diagnosis to highest level of medical certainty/plan: Final diagnoses: [R10.30] Lower abdominal pain Suzan Simpson MD PGY-2 09/21/2018 4:11 AM Attending note: 12 yof with long hx of suprapubic pain. Has had exhaustive w/u including labs, Abd CT and MRI. Unremarkable sono 2 days ago. Continues to have same pain. No fever. No menses yet (motehr with menarche at age 7). Deines stresses, denies any sexual contact. Has GI consult planned for here next month. Abd soft with mild suprapubic tenderness, ambulates well. External vaginal exam normal with normal vaginal introitus. Obtained CBC, CRP, CMP (unremarkable) and GI specific labs in anticipation for GI consult (pending). Toradol given. Started on Levsin. Discussed s/s to RTER and PCP. I supervised the management of this patient with the resident. I reviewed the history and exam findings by the resident. I repeated the history with the patient/family and pertinent portions of the exam. Management plans were developed with the resident and discussed with the family. The above note reflects my evaluation and assessment of this patient. Disposition was discussed with the patient/family. The patient/family understands indications to return to PCP and/or ED. Patient/family comfortable with disposition. Normal [facility] ESRon 09-21-2018 ESR (Bld) [Velocity] 10 mm Normal [facility] Comment on above: Performed By: #### S RATE #### [address] [address] ESR (Bld) [Velocity] ----- Normal [facility] Comment on above: Result Comment: Male Female Child 0-13 Child 0-13 Adult 0- 9 Adult 0-20 Performed By: #### S RATE #### [address] [address] Lipaseon 09-21-2018 Lipase [Catalytic activity/Vol] 41 U/L Normal 16-63 [facility] Comment on above: Performed By: #### L IPAS #### [address] [address] T4,Freeon 09-21-2018 Free T4 [Mass/Vol] 1.4 ng/dL Normal 0.8-1.5 [facility] Comment on above: Result Comment: New Reference Ranges - effective 03/12/09. Performed By: #### U ACOM #### [address] [address] TSHon 09-21-2018 TSH Qn 3.360 uIU/mL Normal 0.350-5.500 [facility] Comment on above: Performed By: #### T SH #### [address] [address] Urinalysis,Automatedon 09-21 Epithelial cells.squamous LM.HPF (Urine sed) [#/Area] 8 /uL Normal 0-20 [facility] Comment on above: Performed By: #### U FMIC #### [address] [address] Mucous Small Normal [facility] Comment on above: Performed By: #### U FMIC #### [address] [place] [address] RBC (U) [#/Vol] 5.0 /uL Normal 0.0-20.0 [facility] Comment on above: Performed By: #### U FMIC #### [facility] [address] [place] [address] WBC (Bld) [#/Vol] 5.0 /uL Normal 0.0-20.0 [facility] Comment on above: Performed By: #### U FMIC #### [facility] [address] [place] [address] Urinalysis,Completeon 2018 Volume 12 ml Normal 12 [facility] Comment on above: Performed By: #### U ACOM #### [facility] [address] [place] [address] Bilirubin,urine Negative Normal Negative [facility] Comment on above: Performed By: #### U ACOM #### [facility] [address] [place] [address] Character (U) Clear Normal [facility] Comment on above: Performed By: #### U ACOM #### [facility] [address] [place] [address] Color (U) Straw Normal [facility] Comment on above: Performed By: #### U ACOM #### [facility] [address] [place] [address] Glucose Ql (U) Negative Normal Negative [facility] Comment on above: Performed By: #### U ACOM #### [facility] [address] [address] [place] [address] Ketones Ql (U) Negative Normal Negative [facility] Comment on above: Performed By: #### U ACOM #### [facility] [address] [place] [address] Leukocyte esterase Test strip Ql (U) Negative Normal Negative [facility] Comment on above: Performed By: #### U ACOM #### [address] [address] Nitrite Ql (U) Negative Normal Negative [facility] Comment on above: Performed By: #### U ACOM #### [place] [address] pH (U) 6.0 Normal 5.0-8.0 [facility] Comment on above: Performed By: #### U ACOM #### [place] [address] Protein (U) [Mass/Vol] Negative Normal Neg.-Trace [facility] Comment on above: Performed By: #### U ACOM #### [place] [address] Specific gravity (U) [Rel density] 1.011 Normal 1.005-1.030 [facility] Comment on above: Performed By: #### U ACOM #### [place] [address] Urinalysis-Comment - Normal [facility] Comment on above: Result Comment: Ascorbic Acid is present in this urine sample. This may cause possible interferences resulting in false negative reactions for blood, bilirubin, glucose or nitrite tests. False positive reactions may be seen for reducing substances. Interpret with caution. Performed By: #### U ACOM #### [place] [address] Urobilinogen Qn (U) 0.2 mg/dl Normal Negative [facility] Comment on above: Performed By: #### U ACOM #### [place] [address] Urine Cultureon 09-21-2018 Bacteria identified Cx Nom (U) Urine Culture: 50,000 - 100,000 CFU/ml of Normal Skin/urogenital valdemar Source: URNMD Collected: 09/21/18 03:00 Site: Received : 09/21/18 03:19 Urine Culture FINAL 09/23/18 11:25 50,000 - 100,000 CFU/ml of Normal Skin/urogenital valdemar present Normal [facility] Comment on above: Performed By: #### U ACOM #### [place] [address] eGFRon 09-21-2018 GFR/1.73 sq M.predicted MDRD (S/P/Bld) [Vol rate/Area] see below Normal [facility] Comment on above: Result Comment: Refe rence range: > 3 months: >90 ml/min/1.73m^2 Ref. Range change effective 08/15/2017 Unable to calculate EGFR; height not available. Performed By: #### E GFR #### [address] [address] Vital Signs Date Time Vital Sign Value Performing Clinician Faci lity 10-16-2022 02:06-0400 Body weight 51.[address] IMAN CYR . [facility] Comment on above: Performed By: #### A FPMAT #### [facility] [address] [address] [address] Valeria Mesa Encounters Encounter Date Encounter Type Care Provider Facility Start: 08-16-2023 End: 08-16-2023 ambulatory PRIYA CASTAÑEDA Not Available Start: 04-21-2023 End: 04-21-2023 ambulatory COREY ROSE Not Available Start: 03-12-2023 End: 03-12-2023 ambulatory UNKNOWN PROVIDER Facility:[facility] Start: 03-07-2023 Telephone encounter Tommy rodriguez DO Work Phone: [facility] Comment on above: Medication Refill Start: 10-14-2022 End: 10-15-2022 ambulatory COREY ROSE . Facility: Start: 08-13-2022 End: 08-14-[address] IMAN CYR . Facility:[facility] Start: 07-22-2022 End: 07-23-[address] IMAN CYR . Facility:[facility] Start: 02-11-2022 End: 02-12-2022 ambulatory Tommy Bauman [facility] Start: 02-04-2022 ambulatory Tommy Bauman [facility] Start: 10-29-2021 End: 10-30-2021 ambulatory Tommy Bauman [facility] Start: 09-01-2021 End: 09-01-2021 ambulatory NADINE CAMPBELL [facility] Start: 08-28-2021 End: 09-02-2021 ambulatory [facility]STA[facility] Procedures Date Procedure Procedure Detail Performing Clinician Start: 09-21-2018 Blood count hemoglobin Comment on above: Performed By: #### U ACOM #### [place] [address] Plan of Treatment Date Care Activity Detail Author Start: 01-21-2023 Influenza vaccination INFLUENZA VACCINE (#1) [facility] Start: 2019 MENB (1 of 2 - Patient Seeks Protection) MENB (1 of 2 - Patient Seeks Protection) [facility] Start: 09-27-2017 Gastroenterology Transition Assessment Gastroenterology Transition Assessment [facility] Start: 09-27-2012 HPV VACCINES (1 - 2-dose series) HPV VACCINES (1 - 2-dose series) [facility] Start: 09-27-2010 DTaP/Tdap/Td VACCINES (1 - Tdap) DTaP/Tdap/Td VACCINES (1 - Tdap) [facility] Start: 09-27-2004 MMR VACCINES (1 of 1 - Standard series) MMR VACCINES (1 of 1 - Standard series) [facility] Start: 09-27-2004 VARICELLA VACCINES (1 of 2 - 2-dose childhood series) VARICELLA VACCINES (1 of 2 - 2-dose childhood series) [facility] Start: 03-30-2004 COVID-19 Vaccine (#1) COVID-19 Vaccine (#1) [facility] Start: 2003 HEPATITIS B VACCINES (1 of 3 - 3-dose series) HEPATITIS B VACCINES (1 of 3 - 3-dose series) [facility] Payers Date Payer Category Payer Unknown [id number] [address] [facility] [id number] 2022-Present [address] [address] [place] [address] Commercial [id number] 2003 Unknown [id number]. 430 2003 Unknown [id number] [id number]. 430 2003 Unknown [id number] [id number]. 430 2003 Unknown [id number] 2.16.840.1.889394.3.579.2. 593 2003 Unknown [id number] 2.16.840.1.394126.3.579.2. 593 2003 Unknown [id number] 2.16.840.1.638757.3.579.2. 593 2003 Unknown [id number] 2.16.840.1.054656.3.579.2. 732 2003 Unknown [id number] 2.16.840.1.156177.3.579.2. 1259 2003 Unknown [id number] 2.16.840.1.450402.3.579.2. 1259 1982 Unknown [id number] 2.16.840.1.153115.3.579.2. 173 1982 Unknown [id number] [id number]. 175 1959 Medicaid [id number] 1959 Unknown [id number] 1959 Unknown [id number] Social History Date Type Detail Facility Start[facility] Start: 10-29-2021 Tobacco use and exposure Smokeless tobacco non-user [facility] Start: 10-29-2021 History of Social function [facility] Start: 10-29-2021 Tobacco use panel Cheli [facility] How hard is it for y ou to pay for the very basics like food, housing, medical care, and heating Not hard at all [facility] (I/We) worried jonh er (my/our) food would run out before (I/we) got money to buy more. Never true [facility] In the past 12 month s, was there a time when you were not able to pay the mortgage or rent on time? No [facility] Start: 2003 Sex Assigned At Not on file N [facility] Telephone encounter Note 03-07-2023 Telephone Encounter - Neelam Solomon - 03/07/2023 11:47 AM EDT Note Date & Type Note Facility 03-07-2023 Telephone encounter Note Received a fax from [email or web address] for a refill on omeprazole 40 mg capsules. Spoke with pharmacy TJ @ [phone].Leticia seen last in 02-11-22. Further refills will require follow-up. Please have pt contact our office to schedule follow-up. Spoke with mom at home #. Info given as well. She will discuss with Leticia, and have her return a call to our office to schedule follow up. Will check with PCP as well. [facility] Note 03-07-2023 Telephone Encounter - Neelam Solomon - 03/07/2023 11:47 AM EDT Note Date & Type Note Facility 03-07-2023 Miscellaneous Notes Formattin g of this note might be different from the original. Received a fax from [email or web address] for a refill on omeprazole 40 mg capsules. Spoke with pharmacy TJ @ [phone].Leticia seen last in 9-22-22. Further refills will require follow-up. Please have pt contact our office to schedule follow-up. Spoke with mom at home #. Info given as well. She will discuss with Leticia, and have her return a call to our office to schedule follow up. Will check with PCP as well. documented in this encounter [facility] Clinical Note 12-23-2021 Note Date & Type Note Facility 12-23-2021 Note FINDINGS: Sonographic evaluation of the left breast performed, history indicated asymmetric breast volume, left larger than right. No suspicious, mass, or cyst formation. No significant ductal dilatation. Consistent with the history and physical exam increased tissue compared to the right. Symmetrical, relatively normal appearing echotexture. IMPRESSION: BI-RADS 2- Benign Report reported and signed by Joseph Clayton on 12/23/2021 [address] [facility] Drupal Developer Summary Purpose Family History No Family History Records FoundNo Family History Records FoundNo Family History Records FoundNo Family History Records FoundNo Family History Records FoundNo Family History Records FoundNo Family History Records FoundNo Family History Records Found Advance Directives No Advanced Directives Records FoundNo Advanced Directives Records FoundNo Advanced Directives Records FoundNo Advanced Directives Records FoundNo Advanced Directives Records FoundNo Advanced Directives Records FoundNo Advanced Directives Records FoundNo Advanced Directives Records Found Additional Source Comments INFORMATION SOURCE (unrecogn ized section and content) DATE CREATED AUTHOR 01/09/2019 [facility] DATE CREATED AUTHOR AUTHOR'S ORGANIZ ATION 09/02/2021 [facility] DATE CREATED AUTHOR AUTHOR'S ORGANIZ ATION 09/03/2021 [facility] DATE CREATED AUTHOR AUTHOR'S ORGANIZ ATION 12/24/2021 [facility] dical Specialist DATE CREATED AUTHOR AUTHOR'S ORGANIZ ATION 02/21/2022 [facility] DATE CREATED AUTHOR AUTHOR'S ORGANIZ ATION 10/29/2022 [facility] DATE CREATED AUTHOR AUTHOR'S ORGANIZ ATION 03/23/2023 [employer] DATE CREATED AUTHOR AUTHOR'S ORGANIZ ATION 08/18/2023 [facility] dical Specialists EPIC Reason for Visit (unrecogniz ed section and content) Reason Onset Date Comments Medication Refill 03/07/2023 Care Teams (unrecognized sec tion and content) Director Medical Surgical Relationship Specialty Start Date End Date Priya Castañeda MD [address] [place] [address] PCP - General Family Medicine 10/29/21 FOR RECORDS PERTAINING TO PATIENTS WHO ARE OR HAVE BEEN ENROLLED IN A CHEMICAL DEPENDENCY/SUBSTANCEABUSE PROGRAM, SOME INFORMATION MAY BE OMITTED. This clinical summary was aggregated from multiple sources. Caution should be exercised in using it in the provision of clinical care. This summary normalizes information from multiple sources, and as a consequence, information in this document may materially change the coding, format and clinical context of patient data. In addition, data may be omitted in some cases. CLINICAL DECISIONS SHOULD BE BASED ON THE PRIMARY CLINICAL RECORDS. [employer] [facility]. provides no warranty or guarantee of the accuracy or completeness of information in this document.
[2023-10-30 08:57] VITALS: BP 117/67; PULSE 87; TEMP 36.6; O2SAT 100; BMI 16.0
[2023-10-30 09:08] VITALS: O2SAT 99
--- NOTE | 2023-10-30 09:21 | CT_ITS ---
The [address] [address] Patient Name: VENKATA THOMPSON MRN: [id number] date: 2005 Sex: F Assigned Patient Location: ER Current Patient Location: ER Accession/Order Number: [id number] Exam Date: 10/30/2023 11:36 Report Date: 10/30/2023 12:33 At the request of: ILIANA ALLEN Procedure: CT abdomen pelvis w con EXAM: CT abdomen pelvis w con HISTORY: abd pain COMPARISON: None. TECHNIQUE: Axial CT imaging was performed through the abdomen and pelvis with intravenous contrast. Multiplanar reformats were performed. Dose reduction techniques were achieved by using automated exposure control and/or adjustment of mA and/or kV according to patient size and/or use of iterative reconstruction technique. FINDINGS: Lung bases: Lung bases are clear. No pleural effusion. GI upper: Unremarkable. Liver: Normal size and contour. Gallbladder: No significant abnormality. No cholelithiasis. Biliary system: No intra or extrahepatic biliary ductal dilatation. Spleen: Normal size. Pancreas: Unremarkable. Adrenal glands: Normal adrenal glands. Kidneys/ureters: Normal contours. No hydronephrosis. No nephrolithiasis or ureterolithiasis. Vessels: No aneurysm. Lymph Nodes: No lymphadenopathy. Small bowel: No wall thickening or dilatation. Colon: No wall thickening or dilatation. Appendix: Appendix is identified with normal appearance. Peritoneal cavity: No free fluid or pneumoperitoneum. Lower : No significant abnormality of the uterus or adnexa. Bones: No acute bony abnormality. Soft tissues: No acute finding. Additional findings: None. CT/CT abdomen pelvis w con IMPRESSION: Unremarkable CT of the abdomen and pelvis. No acute abnormality. Electronically authenticated by: ALBANIA JEAN Date: 10/30/2023 12:33
[2023-10-30] MEDS: 0.9 % SODIUM CHLORIDE 1,000 ML 999 ML IV (09:27)
[2023-10-30] MEDS: KETOROLAC TROMETHAMINE 30 MG/ML VIAL 15 MG IVP (09:27)
--- NOTE | 2023-10-30 09:31 | ED.ABDPAIN1 ---
HPI - Abdominal Pain General Chief Complaint: Abdominal Pain Stated Complaint: ABDOMINAL PAIN Time Seen by Provider: 10/30/23 08:53 Source: patient Mode of arrival: ambulance History of Present Illness HPI narrative: Patient presents ED complaint of abdominal pain. She woke up at 5 AM and had the pain. The pain is located around her bellybutton. It does not really radiate anywhere. It is not on 1 side or the other. She said it is pretty centrally located and seems to come in waves. She appears to be uncomfortable when the waves come on. No history of kidney stones. She does still have her appendix and her gallbladder. She had a baby about 7 months ago, normal spontaneous vaginal delivery no complications other than preeclampsia. Her blood pressure here is normal 117/67. No fever. Patient was nauseous and took some Zofran at home and is feeling better from a nausea standpoint but does still have the pain. She took some Tylenol at home prior to arrival. Patient denies any chronic abdominal issues in her medical history. Related Data Home Medications ?Medication ?Instructions ?Recorded ?Confirmed norethindrone (contraceptive) 0.35 0.35 mg PO DAILY 10/30/23 10/30/23 mg tablet Previous Rx's ?Medication ?Instructions ?Recorded sertraline 50 mg tablet 50 mg PO QD #30 tabs 03/12/23 ondansetron 4 mg disintegrating 4 mg PO DAILY PRN nausea and 10/30/23 tablet vomiting #15 tabs Allergies Allergy/AdvReac Type Severity Reaction Status Date / Time No Known Allergies Allergy Unknown Verified 03/09/23 06:36 Review of Systems ROS Status of ROS 10 or more systems reviewed and unremarkable except as noted in history and below [facility] Medical History (Updated 10/30/23 @ 13:01 by Di Colmenares DO) Stomach problems ?K31.9 - Disease of stomach and duodenum, unspecified (ICD-10) Social History (Updated 03/09/23 @ 06:34 by Rebeka Neely) Within the past year, how often did you have a drink containing alcohol: never Score interpretation: A score less than 3 is consistent with normal alcohol consumption. 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 Highest level of school completed/degree received: high school graduate Are you now , , , , never or living with a partner: never Little interest or pleasure in doing things: not at all Feeling down, depressed, or hopeless: not at all Feel stressed/tense/nervous/anxious/difficulty sleeping: not at all Do you think of yourself as: straight/heterosexual Gender Identity: female Exam Narrative Exam Narrative: Time Seen: [] Vital Signs: [Per nurse's notes.] General: [Alert] Skin: [Warm, dry, no rash.] Head: [Normocephalic, atraumatic.] Neck: [Supple, trachea midline.] Eye: [Pupils are equal, round and reactive to light, extraocular movements are intact, normal conjunctiva.] Ears, nose, mouth and throat: oral mucosa moist. Cardiovascular: [Regular rate and rhythm, no murmur.] Respiratory: [Lungs are clear to auscultation, respirations are non-labored, breath sounds are equal.] Chest wall: [No tenderness, no deformity.] Gastrointestinal: [Soft, Periumbilical and epigastric tenderness, moderate non distended, normal bowel sounds.] MSK: 5 out of 5 muscle strength x 4 extremities no calf pain or edema Lymphatics: [No lymphadenopathy.] Psychiatric: [Cooperative, appropriate mood & affect.] Neurological: [Alert and oriented to person, place, time, and situation, no focal neurological deficit observed.] Constitutional Vital Signs, click to edit/add: Last Vital Signs Temp 97.9 F 10/30/23 08:57 Pulse 92 H 10/30/23 12:00 Resp 18 10/30/23 12:00 BP 110/65 10/30/23 12:00 Pulse Ox 100 10/30/23 12:00 O2 Del Method Room Air 10/30/23 09:08 Course Vital Signs Vital signs: Vital Signs Temperature 97.9 F 10/30/23 08:57 Pulse Rate 87 10/30/23 08:57 Respiratory Rate 18 10/30/23 08:57 Blood Pressure 117/67 10/30/23 08:57 Pulse Oximetry 100 10/30/23 08:57 Oxygen Delivery Method Room Air 10/30/23 08:57 Temperature 97.9 F 10/30/23 08:57 Pulse Rate 92 H 10/30/23 12:00 Respiratory Rate 18 10/30/23 12:00 Blood Pressure 110/65 10/30/23 12:00 Pulse Oximetry 100 10/30/23 12:00 Oxygen Delivery Method Room Air 10/30/23 09:08 MDM - Abdominal Pain MDM Narrative Medical decision making narrative: Patient's labs are nonacute. Her CT scan was negative for acute including no acute appendicitis no cholelithiasis or cholecystitis evidence. She has no vomiting her vital signs are stable and her labs are nonacute. Please follow-up with primary doctor or return to the emergency room if worsening abdominal pain vomiting fevers or any further concerns. Instructed patient to pump and dump 1 cycle of breastmilk because of the Toradol. Continue Tylenol at home Hydrate at home and return to the emergency room if worsening abdominal pain Differential Diagnosis Differential diagnosis: Likely abdominal pain, acute appendicitis, calculus of kidney, constipation, diverticulitis and small bowel obstruction Medical Records Attestation: I reviewed the patient's medical records. Lab Data Attestation: I reviewed the patient's lab results. Labs: Lab Results 10/30/23 10/30/23 Range/Units 09:03 10:00 WBC 13.5 H (4.0-11.0) 10^3/uL RBC 5.43 H (4.20-5.40) 10^6/uL Hgb 13.5 (12.0-16.0) g/dL Hct 42.8 (36.0-48.0) % MCV 78.8 L (81.0-99.0) fL MCH 24.9 L (26.7-34.0) pg MCHC 31.5 (29.9-35.2) g/dL RDW 14.4 (11.0-15.0) % Plt Count 282 (150-450) 10^3/uL MPV 9.0 L (9.5-13.5) fL Neut % (Auto) 85.8 H (43.0-75.0) % Lymph % (Auto) 6.8 L (20.5-60.0) % [place] % (Auto) 5.3 (1.7-12.0) % Eos % (Auto) 1.6 (0.9-7.0) % Baso % (Auto) 0.1 L (0.2-2.0) % Neut # (Auto) 11.6 H (1.4-6.5) 10^3/uL Lymph # (Auto) 0.9 L (1.2-3.8) 10^3/uL [place] # (Auto) 0.7 (0.3-0.8) 10^3/uL Eos # (Auto) 0.2 (0.0-0.7) 10^3/uL Baso # (Auto) 0.0 (0.0-0.1) 10^3/uL Abs Immat Gran (auto) 0.05 H (0.00-0.03) 10^3/uL Imm/Tot Granulo (auto) 0.4 (0.0-0.5) % Sodium 142 (136-145) mmol/L Potassium 3.7 (3.5-5.1) mmol/L Chloride 103 (98-107) mmol/L Carbon Dioxide 24.3 (21.0-32.0) mmol/L Anion Gap 18.4 BUN 13.0 (7.0-18.0) mg/dL Creatinine 0.67 (0.55-1.02) mg/dL Est GFR ( Amer) >60 (>=60) Est GFR (Non-Af Amer) >60 (>=60) BUN/Creatinine Ratio 19.4 Glucose 90 (74-106) mg/dL Calcium 8.8 (8.5-10.1) mg/dL Total Bilirubin 0.5 (0.2-1.0) mg/dL AST 20 (15-37) U/L ALT 32 (14-59) U/L Alkaline Phosphatase 170 H (46-116) U/L Total Protein 8.0 (6.4-8.2) g/dL Albumin 4.1 (3.4-5.0) g/dL Globulin 3.9 g/dL Albumin/Globulin Ratio 1.1 Lipase 60.0 (16.0-77.0) U/L Serum HCG, Qual Negative (NEGATIVE) Urine Color Yellow (YELLOW) Urine Clarity Clear (CLEAR) Urine pH 6.0 (5.0-9.0) Ur Specific [place] 1.025 (1.005-1.025) Urine Protein Negative (NEG/TRACE) mg/dL Urine Glucose (UA) Negative (NEGATIVE) mg/dL Urine Ketones 15 A (NEGATIVE) mg/dL Urine Occult Blood Negative (NEGATIVE) Urine Nitrite Negative (NEGATIVE) Urine Bilirubin Negative (NEGATIVE) Urine Urobilinogen 0.2 (0.2-1.0) EU/dL Ur Leukocyte Esterase Negative (NEGATIVE) Imaging Data CT scan - abdomen: Radiologist's impression: ITS Impressions Abdomen/Pelvis CT 10/30/23 09:21 IMPRESSION: Unremarkable CT of the abdomen and pelvis. No acute abnormality. Electronically authenticated by: ALBANIA JEAN Date: 10/30/2023 12:33 Discharge Plan Discharge Stand Alone Forms: Portal Instructions Chief Complaint: Abdominal Pain Clinical Impression: Abdominal pain Patient Disposition: Home, Self-Care Time of Disposition Decision: 13:01 Condition: Good Mode of Transportation: Private Vehicle Prescriptions / Home Meds: New ondansetron 4 mg tablet,disintegrating 4 mg PO DAILY PRN (Reason: nausea and vomiting) Qty: 15 0RF No Action sertraline 50 mg Tablet 50 mg PO QD Qty: 30 0RF Hold Instructions: no longer taking norethindrone (contraceptive) 0.35 mg tablet 0.35 mg PO DAILY Print Language: Polish Instructions: Abdominal Pain (ED) Referrals: REFUGIO HERBERT [Primary Care Provider] - 1 week
[2023-10-30 09:32] VITALS: PULSE 95; O2SAT 99
[2023-10-30 09:34] LABS: Basophils Percent Auto 0.1 % (0.2-2.0); Eosinophils Absolute Auto 0.2 10^3/uL (0.0-0.7); Eosinophils Percent Auto 1.6 % (0.9-7.0); Hematocrit 42.8 % (36.0-48.0); Hemoglobin 13.5 g/dL (12.0-16.0); Immature Granulocytes Abs Auto 0.05 10^3/uL (0.00-0.03); Immature Granulocytes Pct Auto 0.4 % (0.0-0.5); Lymphocytes Absolute Auto 0.9 10^3/uL (1.2-3.8); Lymphocytes Percent Auto 6.8 % (20.5-60.0); Mean Corpuscular HGB Conc 31.5 g/dL (29.9-35.2); Mean Corpuscular Hemoglobin 24.9 pg (26.7-34.0); Mean Corpuscular Volume 78.8 fL (81.0-99.0); Monocytes Absolute Auto 0.7 10^3/uL (0.3-0.8); Monocytes Percent Auto 5.3 % (1.7-12.0); Neutrophils Absolute Auto 11.6 10^3/uL (1.4-6.5); Neutrophils Percent Auto 85.8 % (43.0-75.0); Platelet Count 282 10^3/uL (150-450); Red Blood Count 5.43 10^6/uL (4.20-5.40); Red Cell Distribution Width 14.4 % (11.0-15.0); White Blood Count 13.5 10^3/uL (4.0-11.0)
[2023-10-30 09:49] LABS: Alanine Aminotransferase 32 U/L (14-59); Albumin Globulin Ratio 1.1; Albumin Level 4.1 g/dL (3.4-5.0); Alkaline Phosphatase 170 U/L (46-116); Anion Gap 18.4; Aspartate Amino Transferase 20 U/L (15-37); BUN Creatinine Ratio 19.4; Bilirubin Total 0.5 mg/dL (0.2-1.0); Calcium 8.8 mg/dL (8.5-10.1); Carbon Dioxide 24.3 mmol/L (21.0-32.0); Chloride 103 mmol/L (98-107); Estimated GFR (African America >60 (>=60); Estimated GFR (Non-African Ame >60 (>=60); Globulin 3.9 g/dL; Glucose 90 mg/dL (74-106); Potassium 3.7 mmol/L (3.5-5.1); Sodium 142 mmol/L (136-145)
[2023-10-30 10:01] VITALS: BP 118/65; PULSE 80; O2SAT 98
[2023-10-30 10:25] LABS: Bilirubin Urine NEGATIVE (NEGATIVE); Blood Urine NEGATIVE (NEGATIVE); Clarity Urine CLEAR (CLEAR); Color Urine YELLOW (YELLOW); Glucose Urine UA NEGATIVE (NEGATIVE); Ketones Urine 15 mg/dL (NEGATIVE); Leukocyte Esterase Urine NEGATIVE (NEGATIVE); Nitrite Urine NEGATIVE (NEGATIVE); Protein Urine NEGATIVE (NEG/TRACE); Specific Gravity Urine 1.025 (1.005-1.025); Urobilinogen Urine 0.2 EU/dL (0.2-1.0)
[2023-10-30 10:31] LABS: Urine Microscopic Indicated NO
[2023-10-30 11:32] LABS: HCG Qualitative NEGATIVE (NEGATIVE)
[2023-10-30 12:00] VITALS: BP 110/65; PULSE 92; O2SAT 100
[2023-10-30 13:11] VITALS: BP 103/57; PULSE 74; TEMP 37.1; O2SAT 99
== END 2023-10-30 13:18 | disposition home or self-care (01) ==
PROVIDERS: Emergency Provider Emergency Medicine; PCP Family Medicine
DX: R10.9 Unspecified abdominal pain (principal)
CPT/HCPCS: 36415; 74177; 80053; 81003; 83690; 84703; 85025; 96374; 99284; Q9967

== ENCOUNTER 2024-11-10 13:58 | Outpatient (OUT) | payer MEDICAID, SELFPAY ==
--- OUTSIDE RECORDS SUMMARY | 2024-11-07 15:00 | XMS_ITS | Encounter Summary ---
Author Organization [facility] Address [address] [place] [address] Care Team Providers Care Food Storeroom Clerk Name Role Phone Priya Castañeda MD Primary Care Provider [phone] Reason for Visit * Reason Comments Follow-up Encounter Details Date Type Department Care Team (Late st Contact Info) Description 11/07/2024 3:00 PM EDT Office Visit [facility] [address] [place] [address] Charis Bustamante PA [address] [place], [place] [id number] Irregular bleeding; Pelvic pain in female; Menorrhagia [...] EDT Office Visit [facility] [address] [place] [phone] Charis Bustamante PA [address] [address] Scheduled Orders Name Type Priority Associated Diagnoses [...] ovaries documented in this encounter Care Teams Food Storeroom Clerk Relationship Specialty Start Date End Date Priya Castañeda MD [address] [place] [address] PCP - General Family Medicine 10/20/22 documented as of this encounter
--- NOTE | 2024-11-10 14:01 | US_ITS ---
The [address] [address] Patient Name: VENKATA THOMPSON MRN: [id number] date: 2005 Sex: F Assigned Patient Location: Current Patient Location: Accession/Order Number: [id number] Exam Date: 11/12/2024 08:00 Report Date: 11/12/2024 08:04 At the request of: IMAN CYR DO Procedure: US pelvis w/ transvaginal ULTRASOUND PELVIS WITH TRANSVAGINAL COMPARISON: CT 10/30/2023 CLINICAL DATA: Polycystic ovary syndrome. Dysmenorrhea. Real-time ultrasound evaluation the pelvis was performed utilizing both a transabdominal and transvaginal approach. TRANSABDOMINAL: Estimated uterine size is approximately 9.8 x 3.4 x 5.1 cm. No focal myometrial abnormalities are noted. The endometrial lining is estimated at 5 - 6 mm. Both ovaries are visualized. No dominant adnexal cysts are seen. TRANSVAGINAL: Transvaginal imaging was performed better evaluate the uterus and adnexa. By this approach no focal myometrial abnormalities are identified. The endometrial lining measures approximately 3 mm in thickness. Both ovaries are again visualized. The right measures 2.2 x 1.6 x 2.0 cm. The left ovary measures 2.4 x 1.4 x 1.8 cm. There are a few small follicles. There are no dominant adnexal cysts. There is documentation of ovarian blood flow with resistive index of 0.6 on the right 0.5 on the left. No free fluid is seen. US/US pelvis w/ transvaginal IMPRESSION: WITHIN NORMAL LIMITS. Impression dictated by: Simi Pederson M.D. 11/12/2024 8:04 AM Dictation Location: [place] [address] Electronically authenticated by: [id number] Y Date: 11/12/2024 08:04
--- OUTSIDE RECORDS SUMMARY | 2024-11-10 14:01 | XMS_ITS | Encounter Summary ---
Author Organization [facility] Address [address] [place] [address] Care Team Providers Care Brancher Name Role Phone Priya Castañeda MD Primary Care Provider [phone] Priya Castañeda MD Unavailable Encounter Details Date Type Department Care Team (Late st Contact Info) Description 02/10/2023 Clinisync Result Encounter [facility] Unsolicited Iman Mcgregor DO [address] Luan Toure, [facility] Social History Tobacco Use Types Packs/Day Years Used Date Smoking Tobacco: Never Smokeless Tobacco: Never Alcohol Use Standard Drinks/Week Comments Never 0 (1 standard drink = 0.6 oz pur e alcohol) Caffeine : none Comments Yes Sex and Gender Information Value Date Recorded Sex Assigned at Not on file Legal Sex Female 6:43 PM EDT Gender Identity Not on file Sexual Orientation Not on file documented as of this encounter Plan of Treatment Upcoming Encounters Date Type Department Care Team (Late Contact Info) Description 12/05/2024 2:00 PM EDT Office Visit [facility] [address] [place] [id number] Charis Bustamante PA [address] [place], [place] [id number] documented as of this encounter Procedures Procedure Name Priority Date/Time Associated Diagnosis Comments US OB TRANSVAGINAL 02/10/2023 3: 18 PM EDT documented in this encounter Results * US OB TRANSVAGINAL (02/10/2023 3:18 PM EDT) Anatomical Region Laterality Modality Other 02/10/2023 3:18 PM EDT Narrative 02/10/2023 3:18 [place] [address] Ultrasound Report Signed Patient: LETICIA THOMPSON MR#: [id number] : 2005 Acct:[id number] Age/Sex: 17 / F ADM Date: 02/10/23 Loc: US Attending Dr: Iman Mcgregor D.O. Ordering Physician: Iman Mcgregor D.O. Date of Service: 02/10/23 Procedure(s): US OB transvaginal Accession Number(s): [id number] cc: Iman Mcgregor D.O.; Physician,Non-Staff M.[facility] [place] [id number] Patient Name: LETICIA THOMPSON MRN: [id number] date: 2005 Sex: F Assigned Patient Location: US Current Patient Location: Accession/Order Number: [id number] Exam Date: 02/10/2023 08:02 Report Date: 02/10/2023 15:18 At the request of: IMAN MCGREGOR Procedure: US OB transvaginal EXAMINATION: US OB placenta HISTORY: Placenta Previa In Third Trimester O44.03 COMPARISON: Ultrasound OB growth 01/06/2023, ultrasound OB anatomy 10/28/2022 FINDINGS: PLACENTA: Anterior with lower margin 10.0 cm from os. Numerous calcifications throughout the placenta. No production or subchorionic hematoma. CERVIX LENGTH: 2.5 cm HEART RATE: 124 bpm OTHER: None. US/US OB transvaginal IMPRESSION: 1. Grade 2 anterior placenta without previa. 2. Closed cervix 2.5 cm in length. Electronically authenticated by: ELIEL AVILA Date: 02/10/2023 15:18 Dictated By: Eliel Avila M.D. Signed By: 02/11/23 1059 DD/ 1518 TD/TT: Director Of Operations: Procedure Note Radiology, Radiologist, MD - 02/11/2023 [place] [address] Ultrasound Report Signed Patient: LETICIA THOMPSON [facility]#: [id number] : 2005Acct:[id number] Age/Sex: 17 / FADM Date: 02/10/23 Loc: US Attending Dr: Iman Mcgregor D.O. Ordering Physician: Iman Mcgregor D.O. Date of Service: 02/10/23 Procedure(s): US OB transvaginal Accession Number(s): [id number] cc: Iman Mcgregor D.O.; Physician,Non-Staff [facility] [place] [address] Patient Name: LETICIA THOMPSON MRN: [employer]:[id number] date: 2005 Sex: F Assigned Patient Location: US Current Patient Location: Accession/Order Number: [id number] Exam Date: 02/10/2023 08:02 Report Date: 02/10/2023 15:18 At the request of: IMAN MCGREGOR Procedure: US OB transvaginal EXAMINATION: US OB placenta HISTORY: Placenta Previa In Third Trimester O44.03 COMPARISON: Ultrasound OB growth 01/06/2023, ultrasound OB anatomy 10/28/2022 FINDINGS: PLACENTA: Anterior with lower margin 10.0 cm from os. Numerouscalcifications throughout the placenta. No production or subchorionic hematoma. CERVIX LENGTH: 2.5 cm HEART RATE: 124 bpm OTHER: None. US/US OB transvaginal IMPRESSION: 1. Grade 2 anterior placenta without previa. 2. Closed cervix 2.5 cm in length. Electronically authenticated by: ELIEL AVILA Date: 02/10/2023 15:18 Dictated By: Eliel Avila M.D. Signed By:02/11/23 1059 DD/ 1518 TD/TT: Director Of Operations: us Iman Balbir DO [facility] Final Result documented in this encounter Visit Diagnoses Not on filedocumented in this encounter Care Teams Brancher Relationship Specialty Start Date End Date Priya Castañeda MD [address] [place], [place] [id number] PCP - General Family Medicine 10/20/22 Priya Castañeda MD [address] [place], [place] [phone] PCP - Medical [place] [employer] 05/23/23 08/09/24 documented as of this encounter
--- OUTSIDE RECORDS SUMMARY | 2024-11-10 14:01 | XMS_ITS | Clinical Summary ---
Author Organization [facility] Address [id number] [address] [place] [address] Care Team Providers Care Social Security Assessor Name Role Phone Priya Castañeda MD Primary Care Provider [phone] Allergies No known active allergies Medications omeprazole (PriLOSEC) 40 mg capsule Take 1 capsule (40 mg total) by mouth in the morning. Active labetaloL (NORMODYNE) 200 mg tablet Take 1 tablet (200 mg total) by mouth in the morning and 1 tablet (200 mg total) before bedtime. 60 tablet 1 03/12/2023 Active Active Problems Problem Noted Date Diagnosed Date Gestational hypertension 03/12/2023 Social History Tobacco Use Types Packs/Day Years Used Date Smoking Tobacco: Never Smokeless Tobacco: Never Tobacco Cessation:Counseling Given: No Alcohol Use Standard Drinks/Week Comments Never 0 (1 standard drink = 0.6 oz pur e alcohol) Childcare Answer Date Recorded Childcare Unknown 11/01/2018 Employment Answer Date Recorded Employment Unknown 11/01/2018 Purpose - Life Answer Date Recorded Purpose and direction in life Unknown Comments No Sex and Gender Information Value Date Recorded Sex Assigned at Not on file Legal Sex Female 12:01 PM EDT Gender Identity Not on file Sexual Orientation Not on file Last Filed Vital Signs Vital Sign Reading Time Taken Comments Blood Pressure 141/91 03/12/2023 9:00 AM EDT Pulse 82 03/12/2023 9:00 AM EDT Temperature 36.6 C (97.8 F) 03/12/2023 7:00 AM EDT Respiratory Rate 16 03/12/2023 7:00 AM EDT Oxygen Saturation 99% 03/12/2023 12:30 AM EDT Inhaled Oxygen Concentration - - Weight 56.7 kg (125 lb) 03/12/2023 1:52 AM EDT Height 170.2 cm (5' 7 ) 03/12/2023 1:52 AM EDT Body Mass Index 19.58 03/12/2023 1:52 AM EDT Plan of Treatment Health Maintenance Due Date Last Done Comments Depression Screening 2015 Adult BMI Screening 03/12/2024 03/12/2023 Tobacco Screening 03/12/2024 03/12/2023 Pap Smear 09/27/2024 Influenza Vaccine 01/21/2025 DTaP,Tdap and Td Vaccines (6 - Td or Tdap) 09/08/2026 09/08/2016, 12/15/2007, 04/08/2004, Additional history exists Medical Devices Not on file Insurance [employer] [facility] [place] Care Teams Social Security Assessor Relationship Specialty Start Date End Date Priya Castañeda MD PCP - General Family Medicine 03/11/23
--- OUTSIDE RECORDS SUMMARY | 2024-11-10 14:01 | XMS_ITS | CCD ---
Author Organization [facility] Care Team Providers Care Business Mail Entry Clerk Name Role Phone PRIYA CASTAÑEDA Primary Care Unavailable NADDAF, NADINE Gao Referring Unavailable NADDAF, NADINE A Admitting Unavailable NADDAF, NADINE A Attending Unavailable KEON PRIYA Meng Primary Care Unavailable Tommy Bauman Attending Unavailable KEON PRIYA FanBety Primary Care Unavailable KEON PRIYA FanBety Referring Unavailable Tommy Bauman Attending Unavailable ZORAIDA BURNS Referring Unavailable KEON PRIYA Fan. Primary Care Unavailable Tommy Bauman Attending Unavailable KEON PRIYA FanBety Primary Care Unavailable KLARISSA ., DR VALERIO Attending Unavailable LEETSDALE, DR INDRA Craig Consulting Unavailable KEON, DR HUFF Primary Care Unavailable KLARISSA ., DR VALERIO Admitting Unavailable KLARISSA ., DR VALERIO Consulting Unavailable ROSE .CHARIS Admitting Unavailable ROSE ., CHAIRS Consulting Unavailable ROSE ., CHARIS Attending Unavailable KEON, DR HUFF Primary Care Unavailable KLARISSA ., DR VALERIO Attending Unavailable KEON, DR HUFF Primary Care Unavailable KLARISSA ., DR VALERIO Admitting Unavailable KLARISSA ., DR VALERIO Consulting Unavailable Priya Castañeda MD Primary Care Provider PROVIDER, UNKNOWN Attending Unavailable PROVIDER, UNKNOWN Admitting Unavailable Priya Castañeda MD Primary Care Provider [phone] Priya Castañeda MD Unavailable CHARIS ROSE Attending Unavailable CHRAIS ROSE Attending Unavailable CHARIS ROSE Attending Unavailable Medications Current Medications Medication Drug Class(es) Dates Sig (Normalized) Sig (Original) amitriptyline hydrochloride 10 mg oral tablet (1 source) Tricyclic Antidepressant Start: 10-29-2021 amitriptyline 10 mg tablet (Elavil) Take 3 tablets by mouth every night at bedtime. For 1 week, then increase to 4 (40mg) x 1 week and 5 tabs, 50 mg 85 tablet 0 10/29/2021 Active amoxicillin 875 mg / clavulanate 125 mg oral tablet (2 sources) Penicillin-class Antibacterial Start: 02-29-2024 End: 03-07-2024 take 1 tablet by mouth in the morning amoxicillin-clavul anate (Augmentin) 875-125 MG tablet Indications: Mass of right breast, unspecified quadrant Take 1 tablet (875 mg) by mouth in the morning and 1 tablet (875 mg) before bedtime. Do all this for 7 days. 14 tablet 02/29/2024 03/07/2024 Active Ethinyl Estradiol / Ferrous fumarate / Norethindrone (5 sources) Estrogen Start: 05-10-2024 End: 08-15-2024 take 1 tablet by mouth once daily, then take 1 tablet by mouth once daily norethindrone-ethi nyl estradiol (06/11) 1-20 MG-MCG tablet Indications: Uses control Take 1 tablet by mouth Daily for 28 days Take 1 tablet by mouth daily 28 tablet 11 05/10/2024 08/15/2024 Discontinued (Ineffective) Start: 05-10-2024 take 1 tablet by bon th once daily, then take 1 tablet by mouth once daily norethindrone-ethinyl estradiol (06/11) 1-20 MG-MCG tablet Indications: Uses control Take 1 tablet by mouth Daily for 28 days Take 1 tablet by mouth daily 28 tablet 11 05/10/2024 Active Start: 05-10-2024 End: 06-07-2024 take 1 tablet by mouth once daily, then take 1 tablet by mouth once daily norethindrone-ethinyl estradiol (06/11) 1-20 MG-MCG tablet Indications: Uses control Take 1 tablet by mouth Daily for 28 days Take 1 tablet by mouth daily 28 tablet 11 05/10/2024 06/07/2024 Active Ethinyl Estradiol / Levonorgestrel (5 sources) Progestin, Estrogen, Progestin-containing Intrauterine Device Start: 08-15-2024 take 1 tablet by mouth once daily, then take 1 tablet by mouth once daily levonorgestrel-ethinyl estradiol (Jolessa) 0.15-0.03 MG tablet Indications: Uses control Take 1 tablet by mouth Daily Take 1 tablet by mouth daily 84 tablet 3 08/15/2024 Active Start: 08-15-2024 End: 11-07-2024 take 1 tablet by mouth once daily, then take 1 tablet by mouth once daily levonorgestrel-ethinyl estradiol (Jolessa) 0.15-0.03 MG tablet Indications: Uses control Take 1 tablet by mouth Daily Take 1 tablet by mouth daily 84 tablet 3 08/15/2024 11/07/2024 Active norethindrone 0.35 mg oral tablet (12 sources) Start: 04-25-2024 take 1 tablet by mouth in the morning norethindrone (Micronor) 0.35 MG tablet Indications: 6 weeks follow-up ([facility]) TAKE 1 TABLET BY MOUTH IN THE MORNING 28 tablet 3 04/25/2024 Active Start: 04-21-2023 End: 04-20-2024 take 1 tablet by mouth in the morning norethindrone (Micronor) 0.35 MG tablet Indications: 6 weeks follow-up Take 1 tablet (0.35 mg) by mouth in the morning. 28 tablet 11 04/21/2023 04/20/2024 Active omeprazole 40 mg delayed release oral capsule (13 sources) Proton Pump Inhibitor Start: 02-11-2022 End: 03-07-2024 take 1 capsule by mouth before mealtime omeprazole (PriLOSEC) [address] capsule Indications: Third trimester ([facility]) Take 1 capsule (40 mg) by mouth in the morning. Take before meals. Do not crush or chew.. 30 capsule 11 03/08/2023 Active Problems Active Problems Problem Classification Problem Date Documented Da te Episodic/Chronic Abdominal pain (16 sources) Generalized abdominal pain; Translations: [Generalized abdominal pain] Onset: 10-29-2021 10-29-2021 Episodic Anxiety disorders (12 sources) Low self-esteem; Translations: [Low self-esteem] Onset: 01-06-2023 01-06-2023 Chronic Coagulation and hemorrhagic disorders (2 sources) Blood coagulation disorder; Translations: [Hemorrhagic condition, unspecified] 11-07-2024 Episodic Contraceptive and procreative management (2 sources) Patient encounter status; Translations: [Encounter for other general counseling and advice on contraception] 05-10-2024 Episodic Menstrual disorders (20 sources) Irregular menstruation, unspecified; Translations: [Dysmenorrhea] Onset: 07-22-2022 Chronic Miscellaneous mental health disorders (12 sources) Psychosomatic factor in physical condition; Translations: [Psychological and behavioral factors associated with disorders or diseases classified elsewhere] Onset: 01-06-2023 01-06-2023 Chronic Mood disorders (20 sources) Major depression, single episode; Translations: [Major depressive disorder, single episode, unspecified] Onset: 01-06-2023 01-06-2023 Chronic Other endocrine disorders (2 sources) Polycystic ovary syndrome; Translations: [Polycystic ovarian syndrome] 11-07-2024 Chronic Other gastrointestinal disorders (12 sources) Irritable bowel syndrome; Translations: [Irritable bowel syndrome without diarrhea] Onset: 01-06-2023 01-06-2023 Chronic Other and delivery including normal (9 sources) Encounter for supervision of normal , unspecified, second trimester; Translations: [Encounter for supervision of other normal , first trimester] Onset: 07-26-2022 Episodic Residual codes; unclassified (4 sources) Contraception ; Translations: [Other specified health status] 05-10-2024 Episodic Past or Other Problems Problem Classification Problem Date Documented Date Episodic/Chronic Nonmalignant breast conditions (14 sources) Breast problem; Translations: [Disorder of breast, unspecified] Onset: 01-06-2023 01-06-2023 Episodic Other nutritional; endocrine; and metabolic disorders (13 sources) Unintentional weight loss; Translations: [Abnormal weight loss] Onset: 10-29-2021 10-29-2021 Episodic Other nutritional; endocrine; and metabolic disorders (13 sources) Decreased body mass index; Translations: [Body mass index (BMI) pediatric, less than 5th percentile for age] Onset: 10-30-2021 10-30-2021 Episodic Residual codes; unclassified (1 source) Less than 8 weeks gestation of ; Translations: [< 8 WEEKS GESTATION ] Onset: 07-26-2022 Episodic Results Test Name Value Interpretation Reference Range Facility HCG ( test) Ql (U)o n 08-15-2024 Interpretation and review of laboratory results Normal [facility] Preg Test, Ur Negative Negative [facility] Urinalysis macro (dipstick) panel (U)on 08-15-2024 Bilirubin, UA Negative Negative - 4(70) +++ mg/dL [facility] Blood, UA Positive Negative - 50 Jurgen/mcL [facility] Comment on above: trace Clarity, UA Clear [facility] Color, UA Yellow [facility] Glucose, UA Negative Negative - 1999(110) ++++ mg/dL [facility] Interpretation and review of laboratory results Normal [facility] Ketones, UA Negative Negative - 160(16) ++++ mg/dL [facility] Leukocytes, UA Negative Negative - 500+++ Fercho/mcL [facility] Nitrite, UA Negative Negative - Positive [facility] pH, UA 5.5 5 - 9 [facility] Protein, UA Negative Negative - 2000(20) ++++ mg/dL [facility] Spec Grav, UA 1.03 1 - 1.03 [facility] Urobilinogen, UA 0.2 0.2 - 12 mg/dL [facility] AFP MATERNAL FOR SPINA BIFID Aon 10-16-2022 AFP MoM 1.08 Normal [facility] Comment on above: Performed By: #### A FPMAT #### [facility] [address] [address] [address] Valeria Meas AFP Value 61.4 ng/mL Normal [facility] Comment on above: Performed By: #### A FPMAT #### [facility] [address] [address] [address] Valeria Mesa AFP, Serum for Spina Bifida Report Normal [facility] Comment on above: Performed By: #### A FPMAT #### [facility] [address] [address] [address] Valeria Mesa Comment Comment Normal [facility] Comment on above: Result Comment: Rustam Cooper, Ph.D., [facility] Director . References: Available Upon Request. . Multiples Of Median Cutoffs For AFP Elevations Waldrop 2.5 Black 2.8 IDD 2.0 Twins 4.5 Abbreviation Definitions IDD - Insulin Dep Diabetes OSBR - Open Spina Bifida Risk . For further inquiries contact [employer] at [phone]. . This test was developed and its performance characteristics determined by [employer]. It has not been cleared or approved by the Food and Drug Administration. Performed By: #### A FPMAT #### [facility] [address] [address] [address] Valeria French Age Collection Date 18.4 weeks Normal [facility] Comment on above: Performed By: #### A FPMAT #### [facility] [address] [address] [address] Valeria Mesa Gestat, Age Based on LMP Normal [facility] Comment on above: Result Comment: Reca lculations are not recommended when gestational dating by LMP and ultrasound are within 10 days. Performed By: #### A FPMAT #### [facility] [address] [address] [address] Valeria Mesa Insulin Dep Diabetes No Normal [facility] Comment on above: Performed By: #### A FPMAT #### [facility] [address] [place] [address] Dr. Valeria Mesa Interpretation Comment Normal [facility] Comment on above: Result Comment: Inte rpretation: [...] Customer Services to discuss available options. The [employer] recommends amniocentesis be offered to women age 35 and older. Performed By: #### A FPMAT #### [facility] [address] [address] [address] Valeria Mesa [age] Normal [facility] Comment on above: Performed By: #### A FPMAT #### [facility] [address] [address] [address] Valeria Mesa Multiple Gestation No Normal [facility] Comment on above: Performed By: #### A FPMAT #### [facility] [address] [place] [address] Dr. Valeria Mesa OSBR Risk 1 [place] 9540 Normal [facility] Comment on above: Performed By: #### A FPMAT #### [facility] [address] [place] [address] Dr. Valeria Mesa PDF . Normal [facility] Comment on above: Performed By: #### A FPMAT #### [facility] [address] [place] [address] Dr. Valeria Mesa Race Normal [facility] Comment on above: Performed By: #### A FPMAT #### [facility] [address] [place] [address] Dr. Valeria Mesa Test Results: Negative Normal [facility] Comment on above: Performed By: #### A FPMAT #### [facility] [address] [place] [address] Dr. Valeria Mesa HEP B SURFACE ANTIGEN SCREEN on 08-14-2022 HBsAg Screen Negative Normal Negative [facility] Comment on above: Performed By: #### H BSANS #### [facility] [address] [place] [address] Dr. Valeria Mesa HEPATITIS C VIRUS AB W/ REFL EX QUANTon 08-14-2022 Interpretation: Comment Normal [facility] Comment on above: Result Comment: Not infected with HCV unless early or acute infection is suspected (which may be delayed in an immunocompromised individual), or other evidence exists to indicate HCV infection. Performed By: #### H CVPCRR #### [facility] [address] [place] [address] Dr. Valeria Mesa HCV AB Non-Reactive Normal Non Reactive [facility] Comment on above: Performed By: #### H CVPCRR #### [facility] [address] [place] [address] Dr. Valeria Mesa HIV 1 AND 2 WITH REFLEXon HIV Screen 4th Generation wRfx Non-Reactive Normal Non Reactive [facility] Comment on above: Result Comment: HIV Negative HIV-1/HIV-2 antibodies and HIV-1 p24 antigen were NOT detected. There is no laboratory evidence of HIV infection. Performed By: #### H IV12 #### [facility] [address] [place] [address] Dr. Valeria Mesa RPR QUANTon 08-14-2022 Rapid Plasma Reagin, Quant Non-Reactive Normal NonRea<1:[address] [facility] Comment on above: Result Comment: Plea se Note: This test does not meet current guidelines for screening and diagnosis of syphilis. This test is intended for following treatment response in patients being treated for syphilis infection. To screen for syphilis infection, a reflex cascade that includes both RPR and a treponema-specific assay should be utilized, such as Treponema pallidum (Syphilis) Screening [place] (439350) or Rapid Plasma Reagin (RPR) Test With Reflex to Quantitative RPR and Confirmatory Treponema pallidum Antibodies (821505). Performed By: #### R PRQ #### [facility] [address] [place] [address] Dr. Valeria Mesa RUBELLA AB IGGon 08-14-2022 Rubella Antibodies, IgG 5.32 index Normal Immune >0.[address] [facility] Comment on above: Result Comment: Non- immune <0.90 Equivocal 0.90 - 0.99 Immune >0.99 Performed By: #### R UBIGG #### [facility] [address] [place] [address] Dr. Valeria Mesa BOX TEST SENT OUTon 08-14-19 23 SENT TO REF LAB 08/13/[address] [facility] Comment on above: Performed By: #### B OX #### [facility] [address] [place] [address] Dr. Valeria Mesa CBC AUTO DIFFon 08-13-2022 BASO # 0.0 103/ul Normal 0.0-0.1 [facility] Comment on above: Performed By: #### C BC #### [facility] [address] [place] [address] Dr. Valeria Mesa Basophils/100 WBC (Bld) 0.2 % Normal 0.2-2.[address] [facility] Comment on above: Performed By: #### C BC #### [facility] [address] [place] [address] Dr. Valeria Mesa EO # 0.1 103/ul Normal 0.0-0.7 [facility] Comment on above: Performed By: #### C BC #### [facility] [address] [place] [address] Dr. Valeria Mesa Eosinophils/100 WBC (Bld) 1.1 % Normal 0.9-7.[address] [facility] Comment on above: Performed By: #### C BC #### [facility] [address] [place] [address] Dr. Valeria Mesa Erythrocyte distribution width (RBC) [Ratio] 15.2 % Critically high 11.0-15.[address] [facility] Comment on above: Performed By: #### C BC #### [facility] [address] [place] [address] Dr. Valeria Mesa Hematocrit (Bld) [Volume fraction] 38.6 % Normal 36.0-48.[address] [facility] Comment on above: Performed By: #### C BC #### [facility] [address] [place] [address] Dr. Valeria Mesa Hemoglobin (Bld) [Mass/Vol] 11.9 g/dL Critically low 12.0-16.0 [facility] Comment on above: Performed By: #### C BC #### [facility] [address] [place] [address] Dr. Valeria Mesa IG # 0.01 10e3/ul Normal 0.00-0.03 [facility] Comment on above: Performed By: #### C BC #### [facility] [address] [place] [address] Dr. Valeria Mesa IG % 0.2 % Normal 0.0-0.5 [facility] Comment on above: Performed By: #### C BC #### [facility] [address] [place] [address] Dr. Valeria Mesa LYMPH # 1.8 103/ul Normal 1.2-3.8 [facility] Comment on above: Performed By: #### C BC #### [facility] [address] [place] [address] Dr. Valeria Mesa Lymphocytes/100 WBC (Bld) 32.1 % Normal 20.5-60.[address] [facility] Comment on above: Performed By: #### C BC #### [facility] [address] [place] [address] Dr. Valeria Mesa MANUAL DIFF REQ NO Normal [facility] Comment on above: Performed By: #### C BC #### [facility] [address] [place] [address] Dr. Valeria Mesa MCH (RBC) [Entitic mass] 23.5 pg Critically low 26.7-34.[address] [facility] Comment on above: Performed By: #### C BC #### [facility] [address] [place] [address] Dr. Valeria Mesa MCHC (RBC) [Mass/Vol] 30.8 g/dL Normal 29.9-35.[address] [facility] Comment on above: Performed By: #### C BC #### [facility] [address] [place] [address] Dr. Valeria Mesa MCV (RBC) [Entitic vol] 76.3 fL Critically low 81.0-99.[address] [facility] Comment on above: Performed By: #### C BC #### [facility] [address] [place] [address] Dr. Valeria Mesa MONO # 0.3 103/ul Normal 0.3-0.[address] [facility] Comment on above: Performed By: #### C BC #### [facility] [address] [place] [address] Dr. Valeria Mesa Monocytes/100 WBC (Bld) 5.4 % Normal 1.7-12.0 [facility] Comment on above: Performed By: #### C BC #### [facility] [address] [place] [address] Dr. Valeria Mesa NEUT # 3.4 103/ul Normal 1.4-6.5 [facility] Comment on above: Performed By: #### C BC #### [facility] [address] [place] [address] Dr. Valeria Mesa Neutrophils/100 WBC (Bld) 61.0 % Normal 43.0-75.[address] [facility] Comment on above: Performed By: #### C BC #### [facility] [address] [place] [address] Dr. Valeria Mesa Platelet mean volume (Bld) [Entitic vol] 8.9 fL Critically low 9.5-13.[address] [facility] Comment on above: Performed By: #### C BC #### [facility] [address] [place] [address] Dr. Valeria Mesa PLT 310 103/ul Normal 150-450 [facility] Comment on above: Performed By: #### C BC #### [facility] [address] [place] [address] Dr. Valeria Mesa RBC 5.06 106/ul Normal 4.20-5.[address] [facility] Comment on above: Performed By: #### C BC #### [facility] [address] [place] [address] Dr. Valeria Mesa WBC 5.5 103/ul Normal 4.0-11.[address] [facility] Comment on above: Performed By: #### C BC #### [facility] [address] [place] [address] Dr. Valeria Mesa CULTURE URINEon 08-13-2022 CULTURE URINE Culture Observations : NO GROWTH. Normal [facility] Comment on above: Performed By: #### A FPMAT #### [facility] [address] [place] [address] Dr. Valeria Mesa GLYCOHEMOGLOBIN A1Con 2022 ADA RECOMMENDATION SEE BELOW Normal [facility] Comment on above: Result Comment: ADA RECOMMENDED LIMIT 4.0 - 6.0 ADA THERAPEUTIC TARGET < 7.0 ACTION SUGGESTED > 7.0 Performed By: #### A 1C #### [facility] [address] [place] [address] Dr. Valeria Mesa Glucose [Mass/Vol] 97 mg/dL Normal [facility] Comment on above: Performed By: #### A 1C #### [facility] [address] [place] [address] Dr. Valeria Mesa HbA1c (Bld) [Mass fraction] 5.0 % Normal 4.5-6.[address] [facility] Comment on above: Performed By: #### A 1C #### [facility] [address] [place] [address] Dr. Valeria Mesa TSHon 08-13-2022 TSH 0.794 uIU/mL Normal 0.516-4.130 [facility] Comment on above: Performed By: #### A FPMAT #### [facility] [address] [place] [address] Dr. Valeria Mesa TYPE AND SCREENon 08-13-2022 TYPE AND SCREEN Negative Normal [facility] Comment on above: Performed By: #### T NS #### [facility] [address] [place] [address] Dr. Valeria Mesa US PREG TVon 07-22-2022 [...] INDRA KUMAR Date: 2022-07-22 16:04 Normal [facility] Surgical Pathologyon 022 Surgical Pathology (NOTE) -- Diagnosis -- A. [...] IDENTIFIED. Hi Mcfarlane M.D. Electronically Signed Out [facility]09/02/2021 Clinical Information Pre-op Diagnosis: ABDOMINAL PAIN Operative Findings: ESOPHAGUS; DUODENUM; GASTRIC BX; TERMINAL ILEUM BX; RIGHT COLON BIOPSY; LEFT COLON BIOPSY; RECTUM BIOPSY Operation Performed: EGD BIOPSY, COLONOSCOPY WITH BIOPSY Source of Specimen A: ESOPHAGUS B: DUODENUM C: GASTRIC BX D: TERMINAL ILEUM BX E: RIGHT COLON BX F: LEFT COLON BX G: RECTUM BIOPSY Gross Description A. LETICIA CASTELLANO, ESOPHAGUS Six verma-white tissue fragments from 0.2 [...] x 0.1 cm. Entirely 1cs. G. LETICIA WAMMLUCI, RECTUM BIOPSY Two verma-white tissue fragments, 0.3 [...] SURGICAL PATHOLOGY CONSULTATION Patient Name: LETICIA CASTELLANO [facility] Rec: [id number] Path Number: [id number] [facility] ANATOMIC PATHOLOGY [address] [place] [phone] Normal [facility] Comment on above: Performed By: #### P PPVS #### [address] [id number] Breast Splitter: Romaine Mcfarlane MD [id number] 08-29-2021 SARS-CoV-2 (COVID-19) RNA ILAN+probe Ql (Unsp spec) [facility] Comment on above: Performed By: #### C OVID #### [address] [id number] Breast Splitter: Romaine Mcfarlane MD [facility] [address] [place] [address] Breast Splitter: Indra Granados MD SARS-CoV-2 (COVID-19) RNA ILAN+probe Ql (Unsp spec) Not detected [facility] Comment on above: Result Comment: The specimen is NEGATIVE for SARS-CoV-2, the novel coronavirus associated with COVID-19. A negative result does not rule out COVID-19. Jammie SARS-CoV-2 for use on the Jammie [employer]/8800 [employer] is a real-time RT-PCR test intended [...] this assay. Fact sheet for Healthcare Providers: https://www.fda.gov/media/987449/download Fact sheet for Patients: https://www.fda.gov/media/981602/download METHODOLOGY: RT-PCR Performed By: #### C OVID #### [facility] [address] [place], [place] [id number] Breast Splitter: Romaine Mcfarlane MD [facility] [address] [place] [address] [place] [address] Breast Splitter: Indra Granados MD [id number] 08-28-2021 SARS-CoV-2 (COVID-19) RNA ILAN+probe Ql (Unsp spec) .NASOPHARYNGEAL SWAB Normal [facility] Comment on above: Performed By: #### C OVID #### [facility] [address] [place], [place] [id number] Breast Splitter: Romaine Mcfarlane MD [address] [place] [address] Breast Splitter: Indra Granados MD Progress Noteon 01-05-2019 [employer] Authentication Interface Message Text Patient ID: Leticia [...] as noted by strikethrough or addition. Akua Medrano, 1:31 PM 01/09/2019 Subjective Leticia Castellano is [...] nursery stay, no NICU stay. Born in [facility] PMHx: Constipation PSHx: None FHx: 1st cousin: Chrons. T2DM, Uterine Ca She is accompanied by her mother and sibling(s). No foreign language teacher was used. Abdominal Pain The onset has [...] no hepatosplenomegaly. There is no tenderness. Genitourinary: Steve stage (genital) is 5. Normal female external [...] Blood, Urine Negative Negative POCT Urine Specific [place] 1.020 1.005 - 1.030 POCT Ketones, Urine Negative Negative mg/dl POCT Glucose, Urine Negative Negative mg/dl Jonelle Salazar, DO [facility] PGY-1 Pager: [phone] Volt: [phone] [id number] 01/05/2019 Normal [facility] [employer] Authentication Interface Message Text We had the pleasure of seeing your patient, Leticia Castellano, in consultation at your request at the [facility] Endocrine clinic for evaluation and advice regarding [...] also had a pelvic ultrasound done at [place] which was normal. No history of acne, [...] length of 21 inches. Medical problems: None Hospitalizations/Surg eries: None DEVELOPMENTAL HISTORY: Appropriate SOCIAL HISTORY: Leticia [...] -0.64) based on CDC (Girls, 2-20 Years) iasuzq-jyn-[id number] data using vitals from 01/05/2019. Blood pressure [...] 0.85) based on CDC (Girls, 2-20 Years) [id number] data based on Stature recorded on 01/05/2019., [...] not hesitate to contact our office at [phone]. Orly Lenz MD [facility] [address] [place] [id number] Normal [facility] Progress Noteon 11-16-2018 [employer] Authentication Interface Message Text Leticia Castellano is here for new office visit for: Abdominal Pain She is accompanied by mother, sibling, aunt and cousin. No foreign language teacher was used. History of Present Illness HPI [...] disease. Was recently seen in ED at [facility] for the pain - 09/21/18 - [...] on phone: None Gets together: None Attends oriental orthodox service: None Active member of club or [...] up in 3 months 5. Please call [phone] with questions or concerns Li Santos MD Pediatric Gastroenterology/Neil gurrola [facility] Normal [facility] Immunoglobulin Aon 9 Immunoglobulin A 339 mg/dL High 47-249 [facility] Comment on above: Result Comment: IgA repeated and verified. Performed By: #### U ACOM #### [place] [address] Transglutaminase IgAon 09-22 Transglutaminase IgA <20.00 Normal 0.00-20.00 [facility] Comment on above: Result Comment: Negative: < 20 Units Weak Positive: 20-30 Units Moderate to Strong Positive: > 30 Units Performed By: #### U ACOM #### [place] [address] C-Reactive Proteinon 019 CRP [Mass/Vol] mg/L Normal 0.0-1.0 [facility] Comment on above: Result Comment: CRP determinations [...] response. Performed By: #### C RP #### [address] [address] Comp Metabolic Panelon 09-21 Albumin [Mass/Vol] 4.8 g/dL High 3.2-4.5 [facility] Comment on above: Performed By: #### C MP #### [address] [id number] ALP [Catalytic activity/Vol] 161 U/L Normal 50-162 [facility] Comment on above: Performed By: #### C MP #### [address] [id number] ALT [Catalytic activity/Vol] 14 U/L Normal 0-31 [facility] Comment on above: Performed By: #### C MP #### [address] [id number] AST [Catalytic activity/Vol] 22 U/L Normal 0-31 [facility] Comment on above: Performed By: #### C MP #### [address] [id number] Bili,Total 0.8 mg/dl Normal 0.0-1.0 [facility] Comment on above: Result Comment: Premature : 1 Day 1.0-6.0 mg/dl 2 Day 6.0-8.0 mg/dl 3-5 Day 10.0-15.0 mg/dl Performed By: #### C MP #### [address] [id number] Calcium [Mass/Vol] 9.5 mg/dL Normal 7.6-11.0 [facility] Comment on above: Performed By: #### C MP #### [address] [id number] Chloride [Moles/Vol] 105 mmol/L Normal 96-108 [facility] Comment on above: Performed By: #### C MP #### [address] [address] CO2 [Moles/Vol] 23.3 mmol/L Normal 22.0-29.0 [facility] Comment on above: Performed By: #### C MP #### [address] [id number] Creatinine [Mass/Vol] 0.53 mg/dL Normal 0.50-0.[address] [facility] Comment on above: Result Comment: Premature 0.3-1.0 mg/dL Performed By: #### C MP #### [address] [address] Glucose [Mass/Vol] 95 mg/dL Normal 70-99 [facility] Comment on above: Result Comment: Criteria for Diagnosis of Diabetes(Effective 10/26/10): Fasting specimen (no caloric intake for at least 8 hours). <100 mg/dl Normal 100-125 mg/dl Increased Risk for Diabetes >125 mg/dl Diagnostic for Diabetes Random Glucose (any time of day without regard to last meal). >=200 mg/dl plus Classic Symptoms of Diabetes Performed By: #### C MP #### [address] [address] Potassium [Moles/Vol] 3.3 mmol/L Normal 3.3-5.[address] [facility] Comment on above: Performed By: #### C MP #### [address] [address] Protein [Mass/Vol] 8.2 g/dL Normal 5.9-8.4 [facility] Comment on above: Performed By: #### C MP #### [address] [id number] Sodium [Moles/Vol] 137 mmol/L Normal 133-145 [facility] Comment on above: Performed By: #### C MP #### [address] [address] Urea nitrogen [Mass/Vol] 9 mg/dL Normal 4-19 [facility] Comment on above: Performed By: #### C MP #### [address] [address] Complete Blood Counton 09-21 Differential Complete Automated Normal [facility] Comment on above: Performed By: #### C BC #### [address] [address] Basophils/100 WBC (Bld) 0.50 % Normal 0.00-1.00 [facility] Comment on above: Performed By: #### C BC #### [address] [address] Eosinophils/100 WBC (Bld) 1.20 % Normal 0.00-3.00 [facility] Comment on above: Performed By: #### C BC #### [address] [address] Erythrocyte distribution width (RBC) [Ratio] 11.5 % Normal 0.0-14.4 [facility] Comment on above: Performed By: #### C BC #### [address] [address] Hematocrit (Bld) [Volume fraction] 44.3 % Normal 37.0-46.0 [facility] Comment on above: Performed By: #### C BC #### [address] [address] Hemoglobin (Bld) [Mass/Vol] 15.1 g/dL High 12.0-15.0 [facility] Comment on above: Performed By: #### C BC #### [address] [address] Immature granulocytes/100 WBC (Bld) 0.20 % Normal [facility] Comment on above: Result Comment: Tina ture Granulocyte Percent includes promyelocytes, myelocytes, and metamyelocytes. IG% > 1.0 indicates a left shift is present. With automated differentials, bands are included in the neutrophil count and not in the Immature Granulocyte Percent. Performed By: #### C BC #### [address] [address] Lymphocytes/100 WBC (Bld) 34.7 % Normal 25.0-45.0 [facility] Comment on above: Performed By: #### C BC #### [address] [address] MCH (RBC) [Entitic mass] 28.4 pg Normal 25.0-35.0 [facility] Comment on above: Performed By: #### C BC #### [address] [address] MCHC (RBC) [Mass/Vol] 34.1 % Normal 31.0-37.[address] [facility] Comment on above: Performed By: #### C BC #### [address] [address] MCV (RBC) [Entitic vol] 83.4 fL Normal 78.0-96.0 [facility] Comment on above: Performed By: #### C BC #### [address] [address] Monocytes/100 WBC (Bld) 8.30 % High 3.00-6.00 [facility] Comment on above: Performed By: #### C BC #### [address] [address] Neutrophils (Bld) [#/Vol] 3.3 10*3/uL Normal [facility] Comment on above: Performed By: #### C BC #### [address] [address] Neutrophils/100 WBC (Bld) 55.1 % Normal 34.0-64.0 [facility] Comment on above: Performed By: #### C BC #### [address] [address] Nucleated RBC/100 WBC (Bld) [Ratio] 0.0 % Normal -1.0-0.0 [facility] Comment on above: Performed By: #### C BC #### [address] [address] Platelet mean volume (Bld) [Entitic vol] 9.3 fL Normal [facility] Comment on above: Result Comment: MPV is platelet range and age dependent Performed By: #### C BC #### [address] [address] Platelets (Bld) [#/Vol] 256 10*3/uL Normal 150-450 [facility] Comment on above: Performed By: #### C BC #### [address] [address] RBC (Bld) [#/Vol] 5.31 10E12/L High 4.10-4.80 [facility] Comment on above: Performed By: #### C BC #### [address] [address] WBC (Bld) [#/Vol] 5.9 10*3/uL Normal 4.5-13.0 [facility] Comment on above: Performed By: #### C BC #### [address] [address] ED Provider Progress Noteon 09-21-2018 [employer] Authentication Interface Message Text Leticia Castellano : 2005 Chief Complaint Patient presents with Abdominal Pain No Known Allergies DOS: 09/21/2018 12 y.o. Female with chronic abdominal pain of unknown etiology presenting with abdominal pain. Patient has had abdominal pain for a long time and patient has been seen multiple times in [facility] ED for abdominal pain over the last year. Most recently patient was seen in [place] ED 2 days ago for abdominal pain. [...] been stable. Patient has an appointment with [facility] GI on 11/16. Patient has never [...] this encounter. Medical Record/Transferring Institution Record: N/A Treatment/Reassessmen t: Discussed with family that given the chronic [...] and/or ED. Patient/family comfortable with disposition. Normal [facility] ESRon 09-21-2018 ESR (Bld) [Velocity] 10 mm Normal [facility] Comment on above: Performed By: #### S RATE #### [address] [address] ESR (Bld) [Velocity] ----- Normal [facility] Comment on above: Result Comment: Male Female Child 0-13 Child 0-13 Adult 0- 9 Adult 0-20 Performed By: #### S RATE #### [address] [address] Lipaseon 09-21-2018 Lipase [Catalytic activity/Vol] 41 U/L Normal 16-63 [facility] Comment on above: Performed By: #### L IPAS #### [address] [address] T4,Freeon 09-21-2018 Free T4 [Mass/Vol] 1.4 ng/dL Normal 0.8-1.5 [facility] Comment on above: Result Comment: New Reference Ranges - effective 03/12/09. Performed By: #### U ACOM #### [address] [address] TSHon 09-21-2018 TSH Qn 3.360 uIU/mL Normal 0.350-5.500 [facility] Comment on above: Performed By: #### T SH #### [address] [address] Urinalysis,Automatedon 09-21 Epithelial cells.squamous LM.HPF (Urine sed) [#/Area] 8 /uL Normal 0-20 [facility] Comment on above: Performed By: #### U FMIC #### [address] [address] Mucous Small Normal [facility] Comment on above: Performed By: #### U FMIC #### [address] [address] RBC (U) [#/Vol] 5.0 /uL Normal 0.0-20.0 [facility] Comment on above: Performed By: #### U FMIC #### [address] [address] WBC (Bld) [#/Vol] 5.0 /uL Normal 0.0-20.0 [facility] Comment on above: Performed By: #### U FMIC #### [address] [address] Urinalysis,Completeon 2018 Volume 12 ml Normal 12 [facility] Comment on above: Performed By: #### U ACOM #### [address] [address] Bilirubin,urine Negative Normal Negative [facility] Comment on above: Performed By: #### U ACOM #### [address] [address] Character (U) Clear Normal [facility] Comment on above: Performed By: #### U ACOM #### [address] [address] Color (U) Straw Normal [facility] Comment on above: Performed By: #### U ACOM #### [address] [address] Glucose Ql (U) Negative Normal Negative [facility] Comment on above: Performed By: #### U ACOM #### [address] [address] Ketones Ql (U) Negative Normal Negative [facility] Comment on above: Performed By: #### U ACOM #### [address] [address] Leukocyte esterase Test strip Ql (U) Negative Normal Negative [facility] Comment on above: Performed By: #### U ACOM #### [address] [address] Nitrite Ql (U) Negative Normal Negative [facility] Comment on above: Performed By: #### U ACOM #### [place] [address] pH (U) 6.0 Normal 5.0-8.0 [facility] Comment on above: Performed By: #### U ACOM #### [place] [address] Protein (U) [Mass/Vol] Negative Normal Neg.-Trace [facility] Comment on above: Performed By: #### U ACOM #### [place] [address] Specific gravity (U) [Rel density] 1.011 Normal 1.005-1.030 [facility] Comment on above: Performed By: #### U ACOM #### [place] [address] Urinalysis-Comment - Normal [facility] Comment on above: Result Comment: Ascorbic Acid is present in this urine sample. This may cause possible interferences resulting in false negative reactions for blood, bilirubin, glucose or nitrite tests. False positive reactions may be seen for reducing substances. Interpret with caution. Performed By: #### U ACOM #### [place] [address] Urobilinogen Qn (U) 0.2 mg/dl Normal Negative [facility] Comment on above: Performed By: #### U ACOM #### [place] [address] Urine Cultureon 09-21-2018 Bacteria identified Cx Nom (U) Urine Culture: 50,000 - 100,000 CFU/ml of Normal Skin/urogenital valdemar Source: URNMD Collected: 09/21/18 03:00 Site: Received : 09/21/18 03:19 Urine Culture FINAL 09/23/18 11:25 50,000 - 100,000 CFU/ml of Normal Skin/urogenital valdemar present Normal [facility] Comment on above: Performed By: #### U ACOM #### [facility] [address] [place], [place] [id number] eGFRon 09-21-2018 GFR/1.73 sq M.predicted MDRD (S/P/Bld) [Vol rate/Area] see below Normal [facility] Comment on above: Result Comment: Refe rence range: > 3 months: >90 ml/min/1.73m^2 Ref. Range change effective 08/15/2017 Unable to calculate EGFR; height not available. Performed By: #### E GFR #### [facility] [address] [place], [place] [id number] Vital Signs Date Time Vital Sign Value Performing Clinician Facility 11-07-2024 15:20-0400 Body mass index (BMI) [Ratio] 16.91 kg/m2 Charis Rose PA Work Phone: [facility] 11-07-2024 15:20-0400 Body weight 49.33 kg Charis Rose PA Work Phone: [facility] 11-07-2024 15:20-0400 Diastolic blood pressure 82 mm[Hg] Charis Rose PA Work Phone: [facility] 11-07-2024 15:20-0400 Systolic blood pressure 108 mm[Hg] Charis Rose PA Work Phone: [facility] 08-15-2024 10:53-0400 Body mass index (BMI) [Ratio] 16.63 kg/m2 Charis Rose PA Work Phone: [facility] 08-15-2024 10:53-0400 Body weight 48.53 kg Charis Muskogee PA Work Phone: [facility] 08-15-2024 10:53-0400 Diastolic blood pressure 68 mm[Hg] Charis Rose PA Work Phone: [facility] 08-15-2024 10:53-0400 Systolic blood pressure 102 mm[Hg] Charis Rose PA Work Phone: [facility] 05-10-2024 08:48-0500 Body mass index (BMI) [Ratio] 16.32 kg/m2 Charis Rose PA Work Phone: [facility] 05-10-2024 08:48-0500 Body weight 47.63 kg Charis Rose PA Work Phone: [facility] 05-10-2024 08:48-0500 Diastolic blood pressure 68 mm[Hg] Charis Rose PA Work Phone: [facility] 05-10-2024 08:48-0500 Systolic blood pressure 102 mm[Hg] Charis [place]og[place] PA Work Phone: [facility] 02-29-2024 09:58-0400 Body mass index (BMI) [Ratio] 16.01 kg/m2 Charis Rose PA Work Phone: [facility] 02-29-2024 09:58-0400 Body weight 46.72 kg Charis Rose PA Work Phone: [facility] 02-29-2024 09:58-0400 Diastolic blood pressure 68 mm[Hg] Charis Rose PA Work Phone: [facility] 02-29-2024 09:58-0400 Systolic blood pressure 102 mm[Hg] Charis Rose PA Work Phone: [facility] 10-16-2022 02:06-0400 Body weight 51.[address] IMAN CYR . [facility] Comment on above: Performed By: #### AFPMAT #### [facility] [address] [place] [address] Dr. Valeria Mesa Encounters Encounter Date Encounter Type Care Provider Facility Start: 11-07-2024 End: 11-07-2024 Office outpatient visit 15 minutes Charis RAMACHANDRAN Work Phone: [facility] Comment on above: Irregular bleeding; Pelvic pain in female; Menorrhagia with regular cycle; Dysmenorrhea; Bleeding disorder; PCOS (polycystic ovarian syndrome) Start: 11-07-2024 End: 11-07-2024 Bamboo flowsheet Charis Rose PA Work Phone: [facility] Start: 11-07-2024 End: 11-07-2024 Bamboo flowsheet Charis Rose PA Work Phone: [facility] Start: 08-15-2024 End: 08-15-2024 Bamboo flowsheet Charis Rose PA Work Phone: [facility] Start: 08-15-2024 End: 08-15-2024 Bamboo flowsheet Charis Rose PA Work Phone: [facility] Start: 08-15-2024 End: 08-15-2024 ambulatory CHARIS ROSE Not Available Start: 08-15-2024 End: 08-15-2024 Office outpatient visit 15 minutes Charis Rose PA Work Phone: [facility] Comment on above: Uses control Start: 05-10-2024 End: 05-10-2024 Bamboo flowsheet Charis Rose PA Work Phone: [facility] Start: 05-10-2024 End: 05-10-2024 Bamboo flowsheet Charis Rose PA Work Phone: [facility] Start: 05-10-2024 End: 05-10-2024 ambulatory CHARIS ROSE Not Available Start: 05-10-2024 End: 05-10-2024 Office outpatient visit 15 minutes Charis Rose PA Work Phone: [facility] Comment on above: control counse ling; Uses control Start: 02-29-2024 End: 02-29-2024 Bamboo flowsheet Charis Rose PA Work Phone: [facility] Start: 02-29-2024 End: 02-29-2024 Bamboo flowsheet Charis Rose PA Work Phone: [facility] Start: 02-29-2024 End: 02-29-2024 Office outpatient visit 15 minutes Charis Rose PA Work Phone: [facility] Comment on above: Mass of right breast , unspecified quadrant Start: 02-29-2024 End: 02-29-2024 ambulatory CHARIS ROSE Not Available Start: 03-12-2023 End: 03-12-2023 ambulatory UNKNOWN PROVIDER Facility:[facility] Start: 03-07-2023 Telephone encounter Tommy rodriguez Work Phone: [facility] Comment on above: Medication Refill Start: 10-14-2022 End: 10-15-2022 ambulatory CHARIS ROSE . Facility:[facility] Start: 08-13-2022 End: 08-14-[address] IMAN CYR . Facility:[facility] Start: 07-22-2022 End: 07-23-[address] IMAN CYR . Facility:[facility] Start: 02-11-2022 End: 02-12-2022 ambulatory [facility] Start: 02-04-2022 ambulatory [facility] Start: 10-29-2021 End: 10-30-2021 ambulatory [facility] Start: 09-01-2021 End: 09-01-2021 ambulatory NADINE CAMPBELL [facility] Start: 08-28-2021 End: 09-02-2021 ambulatory [facility]STA[facility]ED[facility] Procedures Date Procedure Procedure Detail Performing Clinician Start: 08-15-2024 End: 08-15-2024 Urnls dip stick/tablet rgnt non-auto w/o micrscp Charis RAMACHANDRAN Work Phone: Start: 09-21-2018 Blood count hemoglobin Comment on above: Performed By: #### U ACOM #### [address] [id number] Plan of Treatment Date Care Activity Detail Author Start: 01-21-2025 Influenza vaccination Influenza Vaccine (Season Ended) [facility] Start: 12-05-2024 End: 12-05-2024 Patient encounter procedure 12/05/2024 2:00 PM EDT Office Visit [facility] [address] [place] [phone] Charis Rose PA [address] [place] [address] [facility] Start: 11-07-2024 End: 11-07-2024 Patient encounter procedure 11/07/2024 3:00 PM EDT Office Visit [facility] [address] [phone] Charis Rose PA [address] [facility] [place] [address] Arrived [facility] Comment on above: Arrived Start: 11-07-2024 End: 11-07-2025 Antithrombin III Antithrombin III Lab Routine Bleeding disorder Expected: 11/07/2024 (Approximate), Expires: 11/07/2025 [facility] Comment on above: Expected: 11/07/2024 (Approximate), Expi res: 11/07/2025 Start: 11-07-2024 End: 11-07-2025 Beta-2 glycoprotein antibodies Beta-2 glycoprotein antibodies Lab Routine Bleeding disorder Expected: 11/07/2024 (Approximate), Expires: 11/07/2025 [facility] Comment on above: Expected: 11/07/2024 (Approximate), Expi res: 11/07/2025 Start: 11-07-2024 End: 11-07-2025 Cardiolipin antibody, IgG Cardiolipin antibody, IgG Lab Routine Bleeding disorder Expected: 11/07/2024 (Approximate), Expires: 11/07/2025 [facility] Comment on above: Expected: 11/07/2024 (Approximate), Expi res: 11/07/2025 Start: 11-07-2024 End: 11-07-2025 Cardiolipin antibody, IgM Cardiolipin antibody, IgM Lab Routine Bleeding disorder Expected: 11/07/2024 (Approximate), Expires: 11/07/2025 [facility] Comment on above: Expected: 11/07/2024 (Approximate), Expi res: 11/07/2025 Start: 11-07-2024 End: 11-07-2025 DHEA DHEA Lab Routine PCOS (polycystic ovarian syndrome) Expected: 11/07/2024 (Approximate), Expires: 11/07/2025 [facility] Comment on above: Expected: 11/07/2024 (Approximate), Expi res: 11/07/2025 Start: 11-07-2024 End: 11-07-2025 DRVVT DRVVT Lab Routine Bleeding disorder Expected: 11/07/2024 (Approximate), Expires: 11/07/2025 [facility] Comment on above: Expected: 11/07/2024 (Approximate), Expi res: 11/07/2025 Start: 11-07-2024 End: 11-07-2025 Factor 5 leiden Factor 5 leiden Lab Routine Bleeding disorder Expected: 11/07/2024 (Approximate), Expires: 11/07/2025 [facility] Work Phone: Comment on above: Expected: 11/07/2024 (Approximate), Expi res: 11/07/2025 Start: 11-07-2024 End: 11-07-2025 Factor 8 ristocetin cofactor Factor 8 ristocetin cofactor Lab Routine Irregular bleeding Menorrhagia with regular cycle Dysmenorrhea Bleeding disorder Expected: 11/07/2024 (Approximate), Expires: 11/07/2025 [facility] Comment on above: Expected: 11/07/2024 (Approximate), Expi res: 11/07/2025 Start: 11-07-2024 End: 11-07-2025 Protein [Mass/volume] in Serum or Plasma Protein, total Lab Routine Bleeding disorder Expected: 11/07/2024 (Approximate), Expires: 11/07/2025 [facility] Comment on above: Expected: 11/07/2024 (Approximate), Expi res: 11/07/2025 Start: 11-07-2024 End: 11-07-2025 Protein C activity Protein C activity Lab Routine Bleeding disorder Expected: 11/07/2024 (Approximate), Expires: 11/07/2025 [facility] Comment on above: Expected: 11/07/2024 (Approximate), Expi res: 11/07/2025 Start: 11-07-2024 End: 11-07-2025 Protein S antigen, free Protein S antigen, free Lab Routine Bleeding disorder Expected: 11/07/2024 (Approximate), Expires: 11/07/2025 [facility] Comment on above: Expected: 11/07/2024 (Approximate), Expi res: 11/07/2025 Start: 11-07-2024 End: 11-07-2025 US Pelvis US Pelvis w/ TV Imaging Routine PCOS (polycystic ovarian syndrome) Expected: 11/07/2024, Expires: 11/07/2025 [facility] Comment on above: Expected: 11/07/2024, Expires: Start: 02-29-2024 End: 02-29-2024 Patient encounter procedure 02/29/2024 9:50 AM EDT Office Visit [facility] [address] [address] Charis Rose PA [address] [place] [address] Arrived [facility] Comment on above: Arrived Start: 01-22-2024 Influenza vaccination Influenza Vaccine (#1) [facility] Start: 01-21-2023 Influenza vaccination INFLUENZA VACCINE (#1) [facility] Start: 2019 MENB (1 of 2 - Patient Seeks Protection) MENB (1 of 2 - Patient Seeks Protection) [facility] Start: 09-27-2017 Gastroenterology Transition Assessment Gastroenterology Transition Assessment [facility] Start: 09-27-2012 HPV VACCINES (1 - 2-dose series) HPV VACCINES (1 - 2-dose series) [facility] Start: 09-27-2010 DTaP/Tdap/Td VACCINES (1 - Tdap) DTaP/Tdap/Td VACCINES (1 - Tdap) [facility] Start: 09-27-2004 MMR VACCINES (1 of 1 - Standard series) MMR VACCINES (1 of 1 - Standard series) [facility] Start: 09-27-2004 VARICELLA VACCINES (1 of 2 - 2-dose childhood series) VARICELLA VACCINES (1 of 2 - 2-dose childhood series) [facility] Start: 03-30-2004 COVID-19 Vaccine (#1) COVID-19 Vaccine (#1) [facility] Start: 2003 HEPATITIS B VACCINES (1 of 3 - 3-dose series) HEPATITIS B VACCINES (1 of 3 - 3-dose series) [facility] CBC W Auto Different ial panel - Blood CBC and differential Lab Routine PCOS (polycystic ovarian syndrome) Ordered: 11/07/2024 [facility] Comment on above: Ordered: 11/07/2024 DHEA-sulfate DHEA-sulfate Lab Routine PCOS (polycystic ovarian syndrome) Ordered: 11/07/2024 [facility] Comment on above: Ordered: 11/07/2024 Follicle stimulating hormone Follicle stimulating hormone Lab Routine PCOS (polycystic ovarian syndrome) Ordered: 11/07/2024 [facility] Comment on above: Ordered: 11/07/2024 hCG, quantitative, hCG, quantitative, Lab Routine PCOS (polycystic ovarian syndrome) Ordered: 11/07/2024 [facility] Comment on above: Ordered: 11/07/2024 Hemoglobin A1c/Hemoglobin.total in Blood Hemoglobin A1c Lab Routine Irregular bleeding Menorrhagia with regular cycle Dysmenorrhea Bleeding disorder Ordered: 11/07/2024 [facility] Comment on above: Ordered: 11/07/2024 Luteinizing hormone Luteinizing hormone Lab Routine PCOS (polycystic ovarian syndrome) Ordered: 11/07/2024 [facility] Comment on above: Ordered: 11/07/2024 Thyrotropin [Units/volume] in Serum or Plasma TSH Lab Routine PCOS (polycystic ovarian syndrome) Ordered: 11/07/2024 [facility] Comment on above: Ordered: 11/07/2024 Thyroxine (T4) free [Mass/volume] in Serum or Plasma T4, free Lab Routine PCOS (polycystic ovarian syndrome) Ordered: 11/07/2024 [facility] Comment on above: Ordered: 11/07/2024 Payers Date Payer Category Payer Medicaid [id number] 2022 Unknown [employer] [id number] 2022-Present [address] [place] [address] [id number] 2022 Unknown [id number] 2022 Private Health Insurance [id number] 2003 Unknown [id number] 30 2003 Unknown [id number] [id number] 30 2003 Unknown [id number] [id number] 30 2003 Unknown [id number] 2.16.840.1.385789.3.579.2.5 93 2003 Unknown [id number] [id number] 93 2003 Unknown [id number] [id number] 93 2003 Unknown [id number] [id number] 32 2003 Unknown [id number] [id number] 259 2003 Unknown [id number] [id number] 259 2003 Unknown [id number] 2.16.840.1.101851.3.579.2.1 259 1982 Unknown [id number] 2.16.840.1.322342.3.579.2.1 73 1982 Unknown [id number] [id number] 75 1959 Medicaid [id number] 1959 Unknown [id number] 1959 Unknown [id number] Social History Date Type Detail Facility Start: 10-29-2021 End: 10-18-2022 Tobacco smoking status [facility] Never smoked tobacco [facility] Start: 10-29-2021 End: 10-18-2022 Tobacco use and exposure Smokeless tobacco non-user [facility] Start: 10-29-2021 End: 02-29-2024 History of Social function [facility] Start: 10-29-2021 End: 02-29-2024 Tobacco use panel [facility] How hard is it for y ou to pay for the very basics like food, housing, medical care, and heating Not hard at all [facility] (I/We) worried whekatie er (my/our) food would run out before (I/we) got money to buy more. Never true [facility] In the past 12 month s, was there a time when you were not able to pay the mortgage or rent on time? No [facility] Start: 2003 [facility]: [facility]-2023 End: 08-15-2024 Alcoholic beverage intake Lifetime non-drinker (finding) [facility] Start: 10-18-2022 Alcohol Comment Caffeine : none [facility] Clinical Notes 12-23-2021 to 11-07-2024 Simi Mendosa LPN - 11/07/2024 3:00 PM MADIE Goodwin - 08/15/2024 10:30 AM MADIE Goodwin - 05/10/2024 8:30 AM MADIE Hayden - 02/29/2024 9:50 AM EDT Note Date & Type Note Facility 11-07-2024 History of Presen t illness Narrative Reason for Appointment: Patient ID: Leticia Castellano is a 19 y.o. female who presents for Follow-up Patient presents today for Acute Visit. MEDICATIONS Current Outpatient Medications Medication Instructions levonorgestrel-ethinyl estradiol (Jolessa) 0.15-0.03 MG tablet 1 tablet, Oral, Daily, Take 1 tablet by mouth daily norethindrone (MICRONOR) 0.35 mg, Oral, [...] Vitals: Estimated body mass index is 16.91 kg/m as calculated from the following: Height as of 08/16/23: 5' 7.25 . Weight as of this encounter: 108 lb 12 oz. BP: 108/82 Patient's last menstrual period was 10/16/2024. ASSESSMENT & PLAN ICD-10-CM 1. Irregular bleeding N92.6 2. Pelvic pain in female R10.2 3. Menorrhagia with regular cycle N92.0 Pt presents with heavy cycles, dysmenorrhea, pelvic pain, and irregular bleeding. Pt given labs and ultrasound orders to have obtained. Pt to continue ocp and will discuss labs and ultrasound results at annual appt. Documented by Simi Mendosa LPN on behalf of: MADIE Roe documented in this encounter [facility] 08-15-2024 History of Presen t illness Narrative Reason for Appointment: Patient ID: Leticia Castellano is a 18 y.o. female who presents for Contraception (Pt present today to discuss current B/C pill. The oral medication is causing patient cramping/bleeding.) Patient presents today for cramping/bleeding while on b/c. MEDICATIONS Current Outpatient Medications Medication Instructions levonorgestrel-ethinyl estradiol (Jolessa) 0.15-0.03 MG tablet 1 tablet, Oral, Daily, Take 1 tablet by mouth daily norethindrone (MICRONOR) 0.35 mg, Oral, [...] for age 0610/30/2021 Major depression, single episode (CMS/HCC) 01/06/2023 Menorrhagia 01/06/2023 Missed menses 01/06/2023 Moderate episode of recurrent major depressive disorder (CMS/HCC) 01/06/2023 Other specified depressive episodes (CMS/HCC) 01/06/2023 Stress-related physiological response affecting medical condition 01/06/2023 Weight loss, non-intentional 10/29/2021 Resolved Ambulatory Problems Diagnosis Date Noted No Resolved Ambulatory Problems Past Medical History: Diagnosis Date Acid reflux HISTORY PAST MEDICAL HISTORY SOCIAL HISTORY Past Medical History: Diagnosis Date Acid reflux Social History Tobacco Use Smoking status: Never [...] Negative. Endocrine: Negative. Allergic/Immunologic: Negative. OBJECTIVE Objective: Physical Exam Constitutional: Appearance: Normal appearance. She is normal weight. HENT: Head: Normocephalic. Cardiovascular: Rate and Rhythm: Normal rate. Pulses: Normal pulses. Pulmonary: Effort: Pulmonary effort is normal. Breath sounds: Normal breath sounds. Abdominal: Palpations: Abdomen is soft. Musculoskeletal: General: Normal range of motion. Neurological: General: No focal deficit present. Mental Status: She is alert and oriented to person, place, and time. Psychiatric: Mood and Affect: Mood normal. Behavior: Behavior normal. Thought Content: Thought content normal. Judgment: Judgment normal. Vitals and nursing note reviewed. Vitals: Estimated body mass index is 16.63 kg/m as calculated from the following: Height as of 08/16/23: 5' 7.25 . Weight as of this encounter: 107 lb. BP: 102/68 No LMP recorded. ASSESSMENT & PLAN ICD-10-CM 1. Uses control Z78.9 POCT , urine manually resulted POCT urinalysis dipstick manually resulted levonorgestrel-ethinyl estradiol (Jolessa) 0.15-0.03 MG tablet Pt present today to discuss the bleeding/cramping she has been having for a month now w/oral b/c. Pt would like to discuss changing it at todays visit. Charis Rose sent in Jolessa to begin taking to help w/her bleeding issues. Rx was sent. Patient will follow up in 3 mo or sooner if needed Documented by Yaz Singer MA on behalf of: MADIE Roe documented in this encounter [facility] 05-10-2024 History of Presen t illness Narrative Reason for Appointment: Patient ID: Leticia Castellano is a 18 y.o. female who presents for Contraception (Pt present today to discuss B/C) Patient presents today for to discuss b/c MEDICATIONS Current Outpatient Medications Medication Instructions norethindrone (MICRONOR) 0.35 mg, Oral, Every morning norethindrone-ethinyl estradiol (06/11) 1-20 MG-MCG tablet 1 tablet, Oral, Daily, Take 1 tablet by mouth daily omeprazole (PRILOSEC) 40 mg, Oral, Daily before breakfast, Do not crush or chew. ALLERGIES No Known Allergies PROBLEMS Active Ambulatory Problems Diagnosis Date Noted Chronic generalized abdominal pain 10/29/2021 Disorder of breast 01/06/2023 Dysmenorrhea 01/06/2023 Irritable bowel syndrome 01/06/2023 Low self-esteem 01/06/2023 Low weight, pediatric, BMI less than 5th percentile for age 0610/30/2021 Major depression, single episode (CMS/HCC) 01/06/2023 Menorrhagia 01/06/2023 Missed menses 01/06/2023 Moderate episode of recurrent major depressive disorder (CMS/HCC) 01/06/2023 Other specified depressive episodes (CMS/HCC) 01/06/2023 Stress-related physiological response affecting medical condition 01/06/2023 Weight loss, non-intentional 10/29/2021 Resolved Ambulatory Problems Diagnosis Date Noted No Resolved Ambulatory Problems Past Medical History: Diagnosis Date Acid reflux HISTORY PAST MEDICAL HISTORY SOCIAL HISTORY Past Medical History: Diagnosis Date Acid reflux Social History Tobacco Use Smoking status: Never [...] Negative. Endocrine: Negative. Allergic/Immunologic: Negative. OBJECTIVE Objective: Physical Exam Constitutional: Appearance: Normal appearance. She is normal weight. HENT: Head: Normocephalic. Cardiovascular: Rate and Rhythm: Normal rate. Pulses: Normal pulses. Pulmonary: Effort: Pulmonary effort is normal. Breath sounds: Normal breath sounds. Abdominal: Palpations: Abdomen is soft. Musculoskeletal: General: Normal range of motion. Neurological: General: No focal deficit present. Mental Status: She is alert and oriented to person, place, and time. Psychiatric: Mood and Affect: Mood normal. Behavior: Behavior normal. Thought Content: Thought content normal. Judgment: Judgment normal. Vitals and nursing note reviewed. Vitals: Estimated body mass index is 16.32 kg/m as calculated from the following: Height as of 08/16/23: 5' 7.25 . Weight as of this encounter: 105 lb. BP: 102/68 Patient's last menstrual period was 04/22/2024 (approximate). ASSESSMENT & PLAN ICD-10-CM 1. control counseling Z30.09 2. Uses control Z78.9 norethindrone-ethinyl estradiol (Junel FE 06/11) 1-20 MG-MCG tablet Pt present to discuss changing her b/c pill. Pt is not her baby anymore and desires to change the b/c pill. Charis Rose prescribed Junel fe and it was sent to pharmacy . Documented by Yaz Singer MA on behalf of: MADIE Roe documented in this encounter [facility] 02-29-2024 History of Presen t illness Narrative Images from the original note were not included. Reason for Appointment: Patient ID: Leticia Castellano is a 18 y.o. female who presents for Breast Mass (Pt present today for right breast lump) Patient presents today for Acute Visit. MEDICATIONS Current Outpatient Medications Medication Instructions norethindrone (MICRONOR) 0.35 mg, Oral, Daily omeprazole (PRILOSEC) 40 mg, Oral, Daily before breakfast, Do not crush or chew. ALLERGIES No Known Allergies PROBLEMS Active Ambulatory Problems Diagnosis Date Noted Chronic generalized abdominal pain 10/29/2021 Disorder of breast 01/06/2023 Dysmenorrhea 01/06/2023 Irritable bowel syndrome 01/06/2023 Low self-esteem 01/06/2023 Low weight, pediatric, BMI less than 5th percentile for age 0610/30/2021 Major depression, single episode (CMS/HCC) 01/06/2023 Menorrhagia 01/06/2023 Missed menses 01/06/2023 Moderate episode of recurrent major depressive disorder ([facility]/HCC) 01/06/2023 Other specified depressive episodes (CMS/HCC) 01/06/2023 Stress-related physiological response affecting medical condition 01/06/2023 Weight loss, non-intentional 10/29/2021 Resolved Ambulatory Problems Diagnosis Date Noted No Resolved Ambulatory Problems Past Medical History: Diagnosis Date Acid reflux HISTORY PAST MEDICAL HISTORY SOCIAL HISTORY Past Medical History: Diagnosis Date Acid reflux Social History Tobacco Use Smoking status: Never [...] Negative. Endocrine: Negative. Allergic/Immunologic: Negative. OBJECTIVE Objective: Physical Exam Constitutional: Appearance: Normal appearance. She is normal weight. Genitourinary: Genitourinary Comments: Left upper quadrant tenderness, no masses palpated, no sign of abscess Breasts: Breasts are soft. Left: Tenderness present. HENT: Head: Normocephalic. Cardiovascular: Rate and Rhythm: Normal rate. Pulses: Normal pulses. Pulmonary: Effort: Pulmonary effort is normal. Breath sounds: Normal breath sounds. Chest: Abdominal: Palpations: Abdomen is soft. Musculoskeletal: General: Normal range of motion. Neurological: General: No focal deficit present. Mental Status: She is alert and oriented to person, place, and time. Psychiatric: Mood and Affect: Mood normal. Behavior: Behavior normal. Thought Content: Thought content normal. Judgment: Judgment normal. Vitals and nursing note reviewed. Vitals: Estimated body mass index is 16.01 kg/m as calculated from the following: Height as of 08/16/23: 5' 7.25 . Weight as of this encounter: 103 lb. BP: 102/68 No LMP recorded. (Menstrual status: No Periods). ASSESSMENT & PLAN ICD-10-CM 1. Mass of right breast, unspecified quadrant N63.10 Pt present today for a right breast lump. Pt states she noticed it about 3 days ago. Pt states it was painful for one day and no longer has pain. Pt Is currently breast feeding her 11 month old child. Pt was advised to change into the vest provided for an exam. Charis Rose examed patients breast and found no abscess. Pt was prescribed Augmentin to begin taking due to swollen glands from breast feeding. Documented by Yaz Singer MA on behalf of: MADIE Roe documented in this encounter [facility] 03-07-2023 Telephone encount er Note Received a fax from [facility] for a refill on omeprazole 40 mg capsules. Spoke with pharmacy TJ @ [phone].Leticia seen last in 02-11-22. Further refills will require follow-up. Please have pt contact our office to schedule follow-up. Spoke with mom at home #. Info given as well. She will discuss with Leticia, and have her return a call to our office to schedule follow up. Will check with PCP as well. [facility] 03-07-2023 Miscellaneous Notes Formattin g of this note might be different from the original. Received a fax from [facility] for a refill on omeprazole 40 mg capsules. Spoke with pharmacy TJ @ [phone].Leticia seen last in 02-11-22. Further refills will require follow-up. Please have pt contact our office to schedule follow-up. Spoke with mom at home #. Info given as well. She will discuss with Leticia, and have her return a call to our office to schedule follow up. Will check with PCP as well. documented in this encounter [facility] 08-03-2022 Note FINDINGS: Sonographic evaluation of the left breast performed, history indicated asymmetric breast volume, left larger than right. No suspicious, mass, or cyst formation. No significant ductal dilatation. Consistent with the history and physical exam increased tissue compared to the right. Symmetrical, relatively normal appearing echotexture. IMPRESSION: BI-RADS 2- Benign Report reported and signed by Joseph Clayton on 12/23/[address] [facility] Temperer Evaluation note Diagnosis Mass of right breast, unspecified quadrant [facility] Diagnosis control counseling Uses control [facility]* Diagnosis Uses control [facility]* Diagnosis Irregular bleeding Irregular menstrual cycle Pelvic pain in female Unspecified symptom associated with female genital organs Menorrhagia with regular cycle Dysmenorrhea Bleeding disorder Unspecified hemorrhagic conditions PCOS (polycystic ovarian syndrome) Polycystic ovaries documented in this encounter [facility] Summary Purpose Family History No Family History [...] section and content) DATE CREATED AUTHOR 01/09/2019 [facility] DATE CREATED AUTHOR AUTHOR'S ORGANIZ ATION 09/02/2021 [facility] DATE CREATED AUTHOR AUTHOR'S ORGANIZ ATION 09/03/2021 [facility] DATE CREATED AUTHOR AUTHOR'S ORGANIZ ATION 12/24/2021 [facility]ical Specialist DATE CREATED AUTHOR AUTHOR'S ORGANIZ ATION 02/21/2022 [facility] DATE CREATED AUTHOR AUTHOR'S ORGANIZ ATION 10/29/2022 [facility] DATE CREATED AUTHOR AUTHOR'S ORGANIZ ATION 03/23/2023 [facility] DATE CREATED AUTHOR AUTHOR'S ORGANIZ ATION 08/16/2024 [facility] EPIC Reason for Visit (unrecogniz ed section and content) Reason Onset Date Comments Medication Refill 03/07/2023 Reason Comments Breast Mass Pt present today for right breast lump Reason Comments Contraception Pt present today to discuss B/C Reason Comments Contraception Pt present today to discuss current B/C pill. The oral medication is causing patient cramping/bleeding. Reason Comments Follow-up Care Teams (unrecognized sec tion and content) Business Mail Entry Clerk Relationship Specialty Start Date End Date Priya Castañeda MD [address] [place] [address] PCP - General Family Medicine 10/29/21 Business Mail Entry Clerk Relationship Specialty Start Date End Date Priya Castañeda MD [address] [facility] [place] [address] PCP - General Family Medicine 10/20/22 Priya Castañeda MD [address] [facility] [place] [address] PCP - Medical [employer] 05/23/23 05/22/99 Business Mail Entry Clerk Relationship Specialty Start Date End Date Priya Castañeda MD [address] [facility] [place] [address] PCP - General Family Medicine 10/20/22 Priya Castañeda MD [address] [facility] [place] [address] PCP - Medical [employer] 05/23/23 05/22/99 Business Mail Entry Clerk Relationship Specialty Start Date End Date Priya Castañeda MD [address] [facility] [place] [address] PCP - General Family Medicine 10/20/22 Priya Castañeda MD [address] [facility] [place] [address] PCP - Medical [employer] 05/23/23 05/22/99 Business Mail Entry Clerk Relationship Specialty Start Date End Date Priya Castañeda MD [address] [place] [address] PCP - General Family Medicine 10/20/22 Priya Castañeda MD [address] [facility] [place] [address] PCP - Medical [facility] 05/23/23 05/22/99 Business Mail Entry Clerk Relationship Specialty Start Date End Date Priya Castañeda MD [address] [facility] [place] [address] PCP - General Family Medicine 10/20/22 Business Mail Entry Clerk Relationship Specialty Start Date End Date Priya Castañeda MD [address] [facility] [place] [address] PCP - General Family Medicine 10/20/22 Business Mail Entry Clerk Relationship Specialty Start Date End Date Priya Castañeda MD [address] [facility] [place] [address] PCP - General Family Medicine 10/20/22 Business Mail Entry Clerk Relationship Specialty Start Date End Date Priya Castañeda MD [address] [facility] [place] [address] PCP - General Family Medicine 10/20/22 FOR RECORDS PERTAINING TO PATIENTS WHO ARE [...] BE BASED ON THE PRIMARY CLINICAL RECORDS. [facility] [employer] [facility]. provides no warranty or guarantee of the accuracy or completeness of information in this document.
--- OUTSIDE RECORDS SUMMARY | 2024-11-10 14:01 | XMS_ITS | Encounter Summary ---
Author Organization [facility] Address [address] [place] [address] Care Team Providers Care Brand Marketing Specialist Name Role Phone Priya Castañeda MD Primary Care Provider [phone] Priya Castañeda MD Unavailable Encounter Details Date Type Department Care Team (Late Contact Info) Description 12/10/2022 Abstract [facility] [address] [place] [address] Priya Castañeda MD [address] [place] [address] Social History Tobacco Use Types Packs/Day Years [...] EDT Office Visit [facility] [address] [address] Charis Bustamante PA [address] [place] [address] documented as of this encounter Visit Diagnoses Not on filedocumented in this encounter Care Teams Brand Marketing Specialist Relationship Specialty Start Date End Date Priya Castañeda MD [address] [facility] [address] [place], [place] [id number] PCP - General Family Medicine 10/20/22 Priya Castañeda MD [address] [facility] [address] [place], [place] [id number] PCP - Medical [employer] 05/23/23 08/09/24 documented as of this encounter
--- OUTSIDE RECORDS SUMMARY | 2024-11-10 14:01 | XMS_ITS | Encounter Summary ---
Author Organization [facility] Address [address] [place] [address] Care Team Providers Care Neonatal Nurse Name Role Phone Priya Castañeda MD Primary Care Provider [phone] Encounter Details Date Type Department Care Team (Late Contact Info) Description 11/07/2024 Bamboo flowsheet [facility] [address] [place] [address] Charis Bustamante PA [address] [place] [address] [address] [place], [facility] Social History Tobacco Use Types Packs/Day Years [...] 12/05/2024 2:00 PM EDT Office Visit [facility] [address] [place] [place] [address] Charis Bustamante, PA [address] [place] [address] [place], [place] [id number] documented as of this encounter Visit Diagnoses Not on filedocumented in this encounter Care Teams Neonatal Nurse Relationship Specialty Start Date End Date Priya Castañeda MD [address] [place] [address] PCP - General Family Medicine 10/20/22 documented as of this encounter
--- OUTSIDE RECORDS SUMMARY | 2024-11-10 14:01 | XMS_ITS | Clinical Summary ---
Author Organization [facility] Address [address] [place] [address] Care Team Providers Care Records Management Engineer Name Role Phone Priya Castañeda MD Primary Care Provider [phone] Allergies No known active allergies Medications omeprazole (PriLOSEC) [address] Edgar ons:Third trimester ([facility]) Take 1 capsule (40 mg) by mouth in the morning. Take before meals. Do not crush or chew.. 30 capsule 11 03/08/2023 Active norethindrone (Micronor) 0.35 MG tabletIndicatio ns:6 weeks follow-up ([facility]) TAKE 1 TABLET BY MOUTH IN THE MORNING 28 tablet 3 04/25/2024 Active levonorgestrel- ethinyl estradiol (Jolessa) 0.15-0.03 MG tabletIndicatio ns:Uses control Take 1 tablet by mouth Daily Take 1 tablet by mouth daily 84 tablet 3 08/15/2024 Active Active Problems Problem Noted Date Diagnosed Date Disorder of breast 01/06/2023 Dysmenorrhea 01/06/2023 Irritable bowel syndrome 01/06/2023 Low self-esteem 01/06/2023 Major depression, single episode 01/06/2023 Menorrhagia 01/06/2023 Missed menses 01/06/2023 Moderate episode of recurrent major depressive d isorder 01/06/2023 Other specified depressive episodes 01/06/2023 Stress-related physiological response affecting medical condition 01/06/2023 Low weight, pediatric, BMI less than 5th percent ile for age 0610/30/2021 Chronic generalized abdominal pain 10/29/2021 Weight loss, non-intentional 10/29/2021 Encounters Date Type Department Care Team Description 11/07/2024 3:00 PM EDT Office Visit [facility] [address] [place] [address] Charis Bustamante PA Irregular bleeding; Pelvic pain in female; Menorrhagia with regular cycle; Dysmenorrhea; Bleeding disorder; PCOS (polycystic ovarian syndrome) 11/07/2024 Bamboo flowsheet [facility] [address] [place] [address] Charis Bustamante PA 08/15/2024 10:30 AM EDT Office Visit [facility] [address] [place] [address] Charis Bustamante PA Uses control 08/15/2024 Bamboo flowsheet [facility] [address] [place] [address] Charis Bustamante PA from Last 3 Months Family History Medical History Relation Name Comments Uterine cancer Maternal Grandfather with mets* COPD Paternal Grandmother Relation Name Status Comments Brother Alive 1 brother Father Alive Maternal Grandfather Mother Alive Paternal Grandmother Sister 1 Alive 2 sisters Sister 2 Alive Social History Tobacco Use Types Packs/Day Years Used Date Smoking Tobacco: Never Smokeless Tobacco: Never Tobacco Cessation:Counseling Given: Not Answered Alcohol Use Standard Drinks/Week Comments Never 0 [...] Pressure 108/82 11/07/2024 3:20 PM EDT Pulse 68 08/16/2023 4:03 PM EDT Temperature - - Respiratory Rate 12 08/16/2023 4:03 PM EDT Oxygen Saturation - - Inhaled Oxygen Concentration - - Weight 49.3 kg (108 lb 12 oz) 11/07/2024 3:20 PM EDT Height 170.8 cm (5' 7.25 ) 08/16/2023 4:03 PM ED T Body Mass Index 16.91 08/16/2023 4:03 PM EDT Plan of Treatment Upcoming Encounters Date Type Department Care Team (Late st Contact Info) Description 12/05/2024 2:00 PM EDT Office Visit [facility] OB [address] [facility] [place] [address] Charis Bustamante PA [address] [facility] [place] [address] Health Maintenance Due Date Last Done Comments Influenza Vaccine (Season Ended) 2025 Procedures Procedure Name Priority Date/Time Associated Diagnosis Comments POCT URINALYSIS DIPSTICK Routine 08/15/2024 10:58 AM EDT Uses control POCT , URINE Routine 08/15/2024 10:56 AM EDT Uses control from Last 3 Months Results * POCT urinalysis dipstick manually resulted (08/15/2024 10:58 AM EDT) Color, UA Yellow Clarity, UA Clear Glucose, UA Negative Negative - 2000(110) ++++ mg/dL Bilirubin, UA Negative Negative - 4(70) +++ mg/dL Ketones, UA Negative Negative - 160(16) ++++ mg/dL Spec Grav, UA 1.030 1 - 1.03 Blood, UA Positive Negative - 50 Jurgen/mcL Comment:trace pH, UA 5.5 5 - 9 Protein, UA Negative Negative - 2000(20) ++++ mg/dL Urobilinogen, UA 0.2 0.2 - 12 mg/dL Leukocytes, UA Negative Negative - 500+++ Fercho/mcL Nitrite, UA Negative Negative - Positive Urine 08/15/2024 10:5 8 AM EDT Charis RAMACHANDRAN POINT OF CARE TEST ENTER/EDIT OR DERABLES Final Result * POCT , urine manually resulted (08/15/2024 10:56 AM EDT) Preg Test, Ur Negative Negative Urine 08/15/2024 10:5 6 AM EDT Charis RAMACHANDRAN POINT OF CARE TEST ENTER/EDIT OR DERABLES Final Result from Last 3 Months Insurance [employer] [place] Care Teams Records Management Engineer Relationship Specialty Start Date End Date Priya Castañeda MD [address] [place] [address] PCP - General Family Medicine 10/20/22
--- OUTSIDE RECORDS SUMMARY | 2024-11-10 14:01 | XMS_ITS | Encounter Summary ---
Author Organization [facility] Address [address] [place] [address] Care Team Providers Care Stained Glass Window Designer Name Role Phone Refugio Herbert MD Primary Care Provider [phone] Refugio Herbert MD Unavailable Encounter Details Date Type Department Care Team (Late st Contact Info) Description 02/23/2023 Clinisync Result Encounter [facility] External Department Unsolicited Provider, Generic External Data Social History Tobacco Use Types Packs/Day Years [...] Visit [facility] BCP OB [address] [place] [address] Charis Bustamante PA [address] [place], [place] [id number] documented as of this encounter Procedures Procedure Name Priority Date/Time Associated Diagnosis Comments US RENAL BI 02/23/2023 3:08 PM EDT documented in this encounter Results * US RENAL BI (02/23/2023 3:08 PM EDT) Anatomical Region Laterality Modality Other 02/23/2023 3:08 PM EDT Narrative 02/23/2023 3:08 [place] [address] Ultrasound Report Signed Patient: LETICIA THOMPSON MR#: [id number] : 2005 Acct:[id number] Age/Sex: 17 / F ADM Date: 02/23/23 Loc: [facility] 254-[address]: Iman Mcgregor D.O. Ordering Physician: Iman Mcgregor D.O. Date of Service: 02/23/23 Procedure(s): US renal BI Accession Number(s): [id number] cc: REFUGIO HERBERT ; Iman Mcgregor D.O. [place] [address] Patient Name: LETICIA THOMPSON MRN: [id number] date: 2005 Sex: F Assigned Patient Location: [facility] Current Patient Location: [facility] Accession/Order Number: [id number] Exam Date: 02/23/2023 13:39 Report Date: 02/23/2023 15:08 At the request of: IMAN MCGREGOR Procedure: US renal BI EXAM: Renal and bladder ultrasound CLINICAL INDICATION: back and abdominal pain. COMPARISON: None TECHNIQUE: Grayscale and color Doppler imaging was obtained of both kidneys. FINDINGS: RIGHT: Moderate hydronephrosis. Debris in the right renal pelvis. Cortical echogenicity and thickness is preserved. The kidney measures 10.6 cm length. No sonographically evident renal calculi. No abnormal renal masses identified. LEFT: No hydronephrosis. Cortical echogenicity and thickness is preserved. The kidney measures 11.3 cm length. No sonographically evident renal calculi. No abnormal renal masses identified. Bladder: No obvious sonographic abnormality. US/US renal BI IMPRESSION: Moderate right hydronephrosis with debris in the renal pelvis. Electronically authenticated by: JOSE BECKETT Date: 02/23/2023 15:08 Dictated By: Jose Beckett M.D. Signed By: 02/23/23 1510 DD/ 1508 TD/TT: Ar Manager: Procedure Note Radiology, Radiologist, - 02/23/2023 [place] [address] Ultrasound Report Signed Patient: LETICIA THOMPSON AMR#: [id number] : 2005Acct:[id number] Age/Sex: 17 / FADM Date: 02/23/23 Loc: [facility] 254-[address]: Iman Mcgregor D.O. Ordering Physician: Iman Mcgregor D.O. Date of Service: 02/23/23 Procedure(s): US renal BI Accession Number(s): [id number] cc: REFUGIO HERBERT ; Iman Mcgregor D.O. The [place] [address] Patient Name: LETICIA THOMPSON MRN: [id number] date: 2005 Sex: F Assigned Patient Location: [facility] Current Patient Location: [facility] Accession/Order Number: [id number] Exam Date: 02/23/2023 13:39 Report Date: 02/23/2023 15:08 At the request of: IMAN MCGREGOR Procedure: US renal BI EXAM: Renal and bladder ultrasound CLINICAL INDICATION: back and abdominal pain. COMPARISON: None TECHNIQUE: Grayscale and color Doppler imaging was obtained of bothkidneys. FINDINGS: RIGHT: Moderate hydronephrosis. Debris in the right renal pelvis. Cortical echogenicity and thickness is preserved. The kidney measures 10.6 cmlength. No sonographically evident renal calculi. No abnormal renal massesidentified. LEFT: No hydronephrosis. Cortical echogenicity and thickness is preserved.The kidney measures 11.3 cm length. No sonographically evident renal calculi.No abnormal renal masses identified. Bladder: No obvious sonographic abnormality. US/US renal BI IMPRESSION: Moderate right hydronephrosis with debris in the renal pelvis. Electronically authenticated by: JOSE BECKETT Date: 02/23/2023 15:08 Dictated By: Jose Beckett M.D. Signed By:02/23/23 1510 DD/ 1508 TD/TT: Ar Manager: us Generic External Data Provider [facility] Final Result documented in this encounter Visit Diagnoses Not on filedocumented in this encounter Care Teams Stained Glass Window Designer Relationship Specialty Start Date End Date Refugio Herbert MD [address] [place] [address] PCP - General Family Medicine 10/20/22 Refugio Herbert MD [address] [place] [address] PCP - Medical [place] [employer] 05/23/23 08/09/24 documented as of this encounter
--- OUTSIDE RECORDS SUMMARY | 2024-11-10 14:01 | XMS_ITS | Encounter Summary ---
Author Organization [facility] Address [address] [place] [address] Care Team Providers Care Motion Picture Set Grip Name Role Phone Priya Castañeda MD Primary Care Provider [phone] Priya Castañeda MD Unavailable Encounter Details Date Type Department Care Team (Late Contact Info) Description 12/10/2022 Abstract [facility] [address] [place] [address] Priya aCstañeda MD [address] [place] [address] Social History Tobacco Use Types [...] Visit [facility] BCP OB [address] [facility] [place] [address] Charis Bustamante PA [address] [facility] [place] [address] documented as of this encounter Visit Diagnoses Not on filedocumented in this encounter Care Teams Motion Picture Set Grip Relationship Specialty Start Date End Date Priya Castañeda MD [address] [facility] [address] [place], [place] [id number] PCP - General Family Medicine 10/20/22 Priya Castañeda MD [address] [facility] [address] [place], [place] [address] PCP - Medical [place] [employer] 05/23/23 08/09/24 documented as of this encounter
--- OUTSIDE RECORDS SUMMARY | 2024-11-10 14:01 | XMS_ITS | Clinical Summary ---
Author Organization [facility] Address [address] [place] [address] Care Team Providers Care Is Project Manager Name Role Phone Priya Castañeda MD Primary Care Provider [phone] Allergies No known active allergies Medications amitriptyline 10 mg tablet (Elavil) Take 3 tablets by mouth every night at bedtime. For 1 week, then increase to 4 (40mg) x 1 week and 5 tabs, 50 mg 85 tablet 10/29/2021 Active omeprazole 40 mg capsule,delayed release (Prilosec) Take 1 capsule by mouth once daily. 30 capsule 5 02/11/2022 Active Active Problems Problem Noted Date Diagnosed Date Low weight, pediatric, BMI less than 5th percent ile for age 0610/30/2021 Chronic generalized abdominal pain 10/29/2021 Weight loss, non-intentional 10/29/2021 Functional abdominal pain syndrome 10/29/2021 Social History Tobacco Use Types Packs/Day Years Used Date Smoking Tobacco: Never Smokeless Tobacco: Never Tobacco Cessation:Counseling Given: No Overall Financial Resource Strain (CARDIA) Answe r Date Recorded How hard is it for you to pa y for the very basics like food, housing, medical care, and heating? Not hard at all 10/29/2021 Hunger Vital Sign Answer Date Recorded Within the past 12 months, y ou worried that your food would run out before you got the money to buy more. Never true 10/30/19 22 Within the past 12 months, t he food you bought just didn't last and you didn't have money to get more. Never true 10/29/2021 PRAPARE - Transportation Answer Date Re corded In the past 12 months, has l ack of transportation kept you from medical appointments or from getting medications? No 01/2022 In the past 12 months, has l ack of transportation kept you from meetings, work, or from getting things needed for daily living? No 10/29/2021 Housing Stability Vital Sign Answer Hebert e Recorded In the last 12 months, was t here a time when you were not able to pay the mortgage or rent on time? No 10/29/2021 In the last 12 months, how many places have you lived? 1 10/29/2021 In the last 12 months, was t here a time when you did not have a steady place to sleep or slept in a fci (including now)? No 10/29/2021 Comments No Sex and Gender Information Value Date Recorded Sex Assigned at Not on file Legal Sex Female 9:13 AM EDT Gender Identity Not on file Sexual Orientation Not on file Last Filed Vital Signs Vital Sign Reading Time Taken Comments Blood Pressure 102/61 02/11/2022 2:35 PM EDT Pulse 65 02/11/2022 2:35 PM EDT Temperature - - Respiratory Rate - - Oxygen Saturation - - Inhaled Oxygen Concentration - - Weight 48 kg (105 lb 11.4 oz) 02/11/2022 2:35 PM EDT Height 168.8 cm (5' 6.46 ) 02/11/2022 2:35 PM ED T Body Mass Index 16.83 02/11/2022 2:35 PM EDT Plan of Treatment Health Maintenance Due Date Last Done Comments MMR Vaccine (1 of 1 - Standa rd series) 09/27/2004 DTaP/Tdap/Td Vaccine (1 - Tdap) 09/27/2010 Varicella Vaccine (1 of 2 - 13+ 2-dose series) 09/27/2016 Gastroenterology Transition Assessment 09/27/2017 HPV Vaccine (1 - 3-dose series) 09/27/2018 Meningococcal B Vaccine (1 o f 2 - Standard) 2019 Hepatitis B Vaccine (1 of 3 - 19+ 3-dose series) 09/27/2022 COVID-19 Vaccine ( - 2023-2 5 season) 2024 Influenza Vaccine (Season Ended) 2025 HIB Vaccine Aged Out No longer eligi ble based on patient's age to complete this topic Hepatitis A Vaccine Aged Out No longe r eligible based on patient's age to complete this topic IPV Vaccine Aged Out No longer eligi ble based on patient's age to complete this topic Meningococcal ACWY Vaccine Aged Out N o longer eligible based on patient's age to complete this topic Pneumococcal Vaccine Aged Out No long er eligible based on patient's age to complete this topic RSV, Nirsevimab Immunization Aged Out No longer eligible based on patient's age to complete this topic Rotavirus Vaccine Aged Out No longer eligible based on patient's age to complete this topic Insurance Member Subscriber Plan / Payer (Ef fective 2022-Present) Name:Leticia Thompson Member ID:Not on file Relation to Subscriber:Child Name:VIVIANE THOMPSON Date of :1982 (Home) Address: [address] [place] [address] Payer ID:[id number] (NAIC) Type:Commercial Address: [place] [id number] Care Teams Is Project Manager Relationship Specialty Start Date End Date Priya Castañeda MD [facility] [place] [address] PCP - General Family Medicine 10/29/21
--- OUTSIDE RECORDS SUMMARY | 2024-11-10 14:01 | XMS_ITS | Encounter Summary ---
Author Organization [facility] Address [address] [place] [address] Care Team Providers Care Door Puller Name Role Phone Priya Castañeda MD Primary Care Provider [phone] Priya Castañeda MD Unavailable Encounter Details Date Type Department Care Team (Late Contact Info) Description 03/11/2023 Abstract [facility] [address] [place] [address] Priya Castañeda MD [address] [place] [address] Social History Tobacco Use Types [...] Office Visit [facility] BCP OB [address] [place] [address] Charis Bustamante PA [address] [facility] [place] [address] documented as of this encounter Visit Diagnoses Not on filedocumented in this encounter Care Teams Door Puller Relationship Specialty Start Date End Date Priya Castañeda MD [address] [facility] [address] [place], [place] [address] PCP - General Family Medicine 10/20/22 Priya Castañeda MD [address] [facility] [address] [place], [place] [address] PCP - Medical [place] [employer] 05/23/23 08/09/24 documented as of this encounter
--- OUTSIDE RECORDS SUMMARY | 2024-11-10 14:01 | XMS_ITS | Encounter Summary ---
Author Organization [facility] Address [address] [place] [address] Care Team Providers Care Digital Sales Director Name Role Phone Priya Castañeda MD Primary Care Provider [phone] Priya Castañeda MD Unavailable Encounter Details Date Type Department Care Team (Late Contact Info) Description 03/01/2023 Orders Only [facility] [address] [place] [address] Hugh Mcgregor DO [address] [facility] [place] [address] Social History Tobacco Use Types Packs/Day Years [...] [address] [facility] [place] [address] Charis Bustamante PA [address] [facility] [place] [address] documented as of this encounter Procedures Procedure Name Priority Date/Time Associated Diagnosis Comments US RENAL KIDNEY Routine 03/01/2023 11:51 AM EDT documented in this encounter Results * US RENAL KIDNEY (03/01/2023 11:51 AM EDT) Anatomical Region Laterality Modality Radiographic Fang ging us Hugh Balbir DO IMG XR PROCEDURES Final Result documented in this encounter Visit Diagnoses Not on filedocumented in this encounter Care Teams Digital Sales Director Relationship Specialty Start Date End Date Priya Castañeda MD [address] [facility] [address] [place], [place] [phone] PCP - General Family Medicine 10/20/22 Priya Castañeda MD [address] [place], [place] [address] PCP - Medical [place] [employer] 05/23/23 08/09/24 documented as of this encounter
--- OUTSIDE RECORDS SUMMARY | 2024-11-10 14:01 | XMS_ITS | Encounter Summary ---
Author Organization [facility] Address [address] [place] [address] Care Team Providers Care Roller Mechanic Name Role Phone Priya Castañeda MD Primary Care Provider [phone] Priya Castañeda MD Unavailable Encounter Details Date Type Department Care Team (Late Contact Info) Description 10/18/2022 Abstract [facility] OB [address] [facility] [place] [address] Hugh Mcgregor [address] [place], [place] [phone] Social History Tobacco Use Types Packs/Day Years [...] EDT Office Visit [facility] BCP OB [address] [facility] [place] [address] Charis Bustamante PA [address] [place] [address] documented as of this encounter Visit Diagnoses Not on filedocumented in this encounter Care Teams Roller Mechanic Relationship Specialty Start Date End Date Priya Castañeda MD [address] [place], [place] [address] PCP - General Family Medicine 10/20/22 Priya Castañeda MD [address] [place] [address] PCP - Medical [place] [employer] 05/23/23 08/09/24 documented as of this encounter
--- OUTSIDE RECORDS SUMMARY | 2024-11-10 14:01 | XMS_ITS | Encounter Summary ---
Author Organization [facility] Address [address] [place] [address] Care Team Providers Care Maple Products Supervisor Name Role Phone Priya Castañeda MD Primary Care Provider [phone] Priya Castañeda MD Unavailable Encounter Details Date Type Department Care Team (Late st Contact Info) Description 02/10/2023 Clinisync Result Encounter [facility] External Department Unsolicited Iman Mcgregor DO [address] [facility] [address] [place], [facility] Social History Tobacco Use Types Packs/Day Years [...] EDT Office Visit [facility] BCP OB [address] [place] [id number] Charis Bustamante PA [address] [facility] [address] [place], [place] [phone] documented as of this encounter Procedures Procedure Name Priority Date/Time Associated Diagnosis Comments US OB GROWTH 02/10/2023 3:16 PM EDT documented in this encounter Results * US OB GROWTH (02/10/2023 3:16 PM EDT) Anatomical Region Laterality Modality Other 02/10/2023 3:16 PM EDT Narrative 02/10/2023 3:16 [place] [address] Ultrasound Report Signed Patient: LETICIA THOMPSON MR#: [id number] : 2005 Acct:[id number] Age/Sex: 17 / F ADM Date: 02/10/23 Loc: US Attending Dr: Iman Mcgregor D.O. Ordering Physician: Iman Mcgregor D.O. Date of Service: 02/10/23 Procedure(s): US OB growth Accession Number(s): [id number] cc: Iman Mcgregor D.O.; Physician,Non-Staff MCedric The [place] [id number] Patient Name: LETICIA THOMPSON MRN: [id number] date: 2005 Sex: F Assigned Patient Location: Current Patient Location: US Accession/Order Number: [id number] Exam Date: 02/10/2023 08:02 Report Date: 02/10/2023 15:16 At the request of: IMAN MCGREGOR Procedure: US OB growth EXAMINATION: US OB growth HISTORY: Size Inconsistent With Dates COMPARISON: Ultrasound OB growth 01/06/2023 FINDINGS: Heart Rate: 129.2 bpm Number: 1.0 Position: Cephalic Amniotic Fluid Volume: 13.3 cm Maximum Vertical Pocket: 3.8 cm BIOMETRY: BPD: 8.8 cm cm; 35 weeks 3 days HC: 31.4 cmcm; 35 weeks 1 days AC: 30.3 cm cm; 34 weeks 2 days FL: 6.8 cm cm; 34 weeks 5 days EFW: 2469.4 grams; 26% FL/AC: 22.3 FL/BPD: 76.9 HC/AC: 1.0 GESTATIONAL AGE: Age by EDC: 35 weeks 3 days BUTCH by EDC: 03/14/2023 Age by US: 34 weeks 6 days BUTCH by US: 03/18/2023 US/US OB growth IMPRESSION: 1. Single live intrauterine with growth detailed above. Electronically authenticated by: ELIEL AVILA Date: 02/10/2023 15:16 Dictated By: Eliel Avila M.D. Signed By: 02/10/23 1518 DD/ 15 TD/TT: Procurement Accountant: Procedure Note Radiology, Radiologist, MD - 02/11/2023 [place] [address] Ultrasound Report Signed Patient: LETICIA THOMPSON AMR#: [id number] : 2005Acct:[id number] Age/Sex: 17 / FADM Date: 02/10/23 Loc: US Attending Dr: Iman Mcgregor D.O. Ordering Physician: Iman Mcgregor D.O. Date of Service: 02/10/23 Procedure(s): US OB growth Accession Number(s): [id number] cc: Iman Mcgregor D.O.; Physician,Non-Staff Dipak The [place] [address] Patient Name: LETICIA THOMPSON MRN: [facility]:[id number] date: 2005 Sex: F Assigned Patient Location: US Current Patient Location: US Accession/Order Number: [id number] Exam Date: 02/10/2023 08:02 Report Date: 02/10/2023 15:16 At the request of: IMAN MCGREGOR Procedure: US OB growth EXAMINATION: US OB growth HISTORY: Size Inconsistent With Dates COMPARISON: Ultrasound OB growth 01/06/2023 FINDINGS: Heart Rate: 129.2 bpm Number: 1.0 Position: Cephalic Amniotic Fluid Volume: 13.3 cm Maximum Vertical Pocket: 3.8 cm BIOMETRY: BPD: 8.8 cm cm; 35 weeks 3 days HC: 31.4 cmcm; 35 weeks 1 days AC: 30.3 cm cm; 34 weeks 2 days FL: 6.8 cm cm; 34 weeks 5 days EFW: 2469.4 grams; 26% FL/AC: 22.3 FL/BPD: 76.9 HC/AC: 1.0 GESTATIONAL AGE: Age by EDC: 35 weeks 3 days BUTCH by EDC: 03/14/2023 Age by US: 34 weeks 6 days BUTCH by US: 03/18/2023 US/US OB growth IMPRESSION: 1. Single live intrauterine with growth detailed above. Electronically authenticated by: ELIEL AVILA Date: 02/10/2023 15:16 Dictated By: Eliel Avila M.D. Signed By:02/10/23 1518 DD/ 15 TD/TT: Procurement Accountant: us Mian Balbir DO [facility] Final Result documented in this encounter Visit Diagnoses Not on filedocumented in this encounter Care Teams Maple Products Supervisor Relationship Specialty Start Date End Date Priya Castañeda MD [address] [place] [address] PCP - General Family Medicine 10/20/22 Priya Castañeda MD [address] [place] [address] PCP - Medical [place] [employer] 05/23/23 08/09/24 documented as of this encounter
--- OUTSIDE RECORDS SUMMARY | 2024-11-10 14:01 | XMS_ITS | Encounter Summary ---
Author Organization [facility] tem Address [id number] [address] [place] [address] Care Team Providers Care Box Tender Name Role Phone Priya Castañeda MD Primary Care Provider [phone] Encounter Details Date Type Department Care Team (Late st Contact Info) Description 03/12/2023 Refill [facility] [address] [place] [phone] Na Farrell RN Social History Tobacco Use Types Packs/Day Years Used Date Smoking Tobacco: Never Smokeless Tobacco: Never Alcohol Use Standard Drinks/Week Comments Never 0 (1 standard drink = 0.6 oz pur e alcohol) Childcare Answer Date Recorded Childcare Unknown 11/01/2018 Employment Answer Date Recorded Employment Unknown 11/01/2018 Purpose - Life Answer Date Recorded Purpose and direction in life Unknown Comments Yes Sex and Gender Information Value Date Recorded Sex Assigned at Not on file Legal Sex Female 12:01 PM EDT Gender Identity Not on file Sexual Orientation Not on file documented as of this encounter Functional Status documented as of this encounter Plan of Treatment Not on file documented as of this encounter Visit Diagnoses Not on filedocumented in this encounter Care Teams Box Tender Relationship Specialty Start Date End Date Priya Castañeda MD PCP - General Family Medicine 03/11/23 documented as of this encounter
--- OUTSIDE RECORDS SUMMARY | 2024-11-10 14:01 | XMS_ITS | Encounter Summary ---
Author Organization [facility] Address [address] [place] [address] Care Team Providers Care Golf Course Manager Name Role Phone Priya Castañeda MD Primary Care Provider [phone] Priya Castañeda MD Unavailable Encounter Details Date Type Department Care Team (Late st Contact Info) Description 02/10/2023 Clinisync Result Encounter [facility] External Department Unsolicited Iman Mcgregor DO [address] [facility] [address] [place], [facility]11 Social History Tobacco Use Types Packs/Day Years [...] EDT Office Visit [facility] BCP OB [address] [facility] [place] [phone] Charis Bustamante PA [address] [facility] [address] [place], [place] [id number] documented as of this encounter Procedures Procedure Name Priority Date/Time Associated Diagnosis Comments US OB PLACENTA 02/10/2023 3:18 PM EDT documented in this encounter Results * US OB PLACENTA (02/10/2023 3:18 PM EDT) Anatomical Region Laterality Modality Other 02/10/2023 3:18 PM EDT Narrative 02/10/2023 3:18 [place] [address] Ultrasound Report Signed Patient: LETICIA THOMPSON MR#: [id number] : 2005 Acct:[id number] Age/Sex: 17 / F ADM Date: 02/10/23 Loc: US Attending Dr: Iman Mcgregor D.O. Ordering Physician: Iman Mcgregor D.O. Date of Service: 02/10/23 Procedure(s): US OB placenta Accession Number(s): [id number] cc: Iman Mcgregor D.O.; Physician,Non-Staff M.DBety [place] [address] Patient Name: LETICIA THOMPSON MRN: [id number] date: 2005 Sex: F Assigned Patient Location: Current Patient Location: Accession/Order Number: [id number] Exam Date: 02/10/2023 08:02 Report Date: 02/10/2023 15:18 At the request of: IMAN MCGREGOR Procedure: US OB placenta EXAMINATION: US OB placenta HISTORY: Placenta Previa In Third Trimester O44.03 COMPARISON: Ultrasound OB growth 01/06/2023, ultrasound OB anatomy 10/28/2022 FINDINGS: PLACENTA: Anterior with lower margin 10.0 cm from os. Numerous calcifications throughout the placenta. No production or subchorionic hematoma. CERVIX LENGTH: 2.5 cm HEART RATE: 124 bpm OTHER: None. US/US OB placenta IMPRESSION: 1. Grade 2 anterior placenta without previa. 2. Closed cervix 2.5 cm in length. Electronically authenticated by: ELIEL AVILA Date: 02/10/2023 15:18 Dictated By: Eliel Avila M.D. Signed By: 02/10/23 1520 DD/ 17 TD/TT: Fructose Loader: Procedure Note Radiology, Radiologist, MD - 02/11/2023 [place] [address] Ultrasound Report Signed Patient: LETICIA THOMPSON AMR#: [id number] : 2005Acct:[id number] Age/Sex: 17 / FADM Date: 02/10/23 Loc: US Attending Dr: Iman Mcgregor D.O. Ordering Physician: Iman Mcgregor D.O. Date of Service: 02/10/23 Procedure(s): US OB placenta Accession Number(s): [id number] cc: Iman Mcgregor D.O.; Physician,Non-Staff Dipak The [place] [address] Patient Name: LETICIA THOMPSON MRN: [id number] date: 2005 Sex: F Assigned Patient Location: US Current Patient Location: US Accession/Order Number: [id number] Exam Date: 02/10/2023 08:02 Report Date: 02/10/2023 15:18 At the request of: IMAN MCGREGOR Procedure: US OB placenta EXAMINATION: US OB placenta HISTORY: Placenta Previa In Third Trimester O44.03 COMPARISON: Ultrasound OB growth 01/06/2023, ultrasound OB anatomy 10/28/2022 FINDINGS: PLACENTA: Anterior with lower margin 10.0 cm from os. Numerouscalcifications throughout the placenta. No production or subchorionic hematoma. CERVIX LENGTH: 2.5 cm HEART RATE: 124 bpm OTHER: None. US/US OB placenta IMPRESSION: 1. Grade 2 anterior placenta without previa. 2. Closed cervix 2.5 cm in length. Electronically authenticated by: ELIEL AVILA Date: 02/10/2023 15:18 Dictated By: Eliel Avila M.D. Signed By:02/10/23 1520 DD/ 1518 TD/TT: Fructose Loader: us Iman Balbir DO [facility] Final Result documented in this encounter Visit Diagnoses Not on filedocumented in this encounter Care Teams Golf Course Manager Relationship Specialty Start Date End Date Priya Castañeda MD [address] [place], [place] [phone] PCP - General Family Medicine 10/20/22 Priya Castañeda MD [address] [place] [place], [place] [address] PCP - Medical [place] [employer] 05/23/23 08/09/24 documented as of this encounter
--- OUTSIDE RECORDS SUMMARY | 2024-11-10 14:01 | XMS_ITS | Encounter Summary ---
Author Organization [facility] Address [address] [place] [address] Care Team Providers Care Reiki Practitioner Name Role Phone Priya Castañeda MD Primary Care Provider [phone] Priya Castañeda MD Unavailable Encounter Details Date Type Department Care Team (Late Contact Info) Description 03/13/2023 Abstract [facility] [address] [place] [address] Priya Castañeda MD [address] [place] [address] Social History Tobacco Use Types [...] Office Visit [facility] BCP OB [address] [facility] [place] [address] Charis Bustamante PA [address] [facility] [place] [address] documented as of this encounter Visit Diagnoses Not on filedocumented in this encounter Care Teams Reiki Practitioner Relationship Specialty Start Date End Date Priya Castañeda MD [address] [facility] [address] [place], [place] [address] PCP - General Family Medicine 10/20/22 Priya Castañeda MD [address] [facility] [address] [place], [place] [address] PCP - Medical [place] [employer] 05/23/23 08/09/24 documented as of this encounter
--- OUTSIDE RECORDS SUMMARY | 2024-11-10 14:01 | XMS_ITS | Encounter Summary ---
Author Organization [facility] Address [address] [place] [address] Care Team Providers Care Sports Journalist Name Role Phone Priya Castañeda MD Primary Care Provider [phone] Priya Castañeda MD Unavailable Encounter Details Date Type Department Care Team (Late Contact Info) Description 03/13/2023 Abstract [facility] [address] [place] [address] Priya Castañeda MD [address] [place] [address] Social History Tobacco Use Types [...] EDT Office Visit [facility] BCP OB [address] [facility] [place] [address] Charis Bustamante PA [address] [facility] [place] [address] documented as of this encounter Visit Diagnoses Not on filedocumented in this encounter Care Teams Sports Journalist Relationship Specialty Start Date End Date Priya Castañeda MD [address] [facility] [address] [place], [place] [address] PCP - General Family Medicine 10/20/22 Priya Castañeda MD [address] [facility] [address] [place], [place] [address] PCP - Medical [place] [employer] 05/23/23 08/09/24 documented as of this encounter
--- OUTSIDE RECORDS SUMMARY | 2024-11-10 14:01 | XMS_ITS | Encounter Summary ---
Author Organization [facility] Address [address] [place] [address] Care Team Providers Care Engineering Illustrator Name Role Phone Priya Castañeda MD Primary Care Provider [phone] Priya Castañeda MD Unavailable Encounter Details Date Type Department Care Team (Late Contact Info) Description 01/27/2023 Abstract [facility] OB [address] [facility] [place] [address] Charis Bustamante PA [address] [place] [address] [address] [place], [place] [address] Social History Tobacco Use Types Packs/Day Years [...] EDT Office Visit [facility] BCP OB [address] [place] [address] Charis Bustamante PA [address] [place] [address] [place] [address] documented as of this encounter Visit Diagnoses Not on filedocumented in this encounter Care Teams Engineering Illustrator Relationship Specialty Start Date End Date Priya Castañeda MD [address] [place], [place] [address] PCP - General Family Medicine 10/20/22 Priya Castañeda MD [address] [facility] [place] [address] PCP - Medical [place] [employer] 05/23/23 08/09/24 documented as of this encounter
== END 2024-11-10 13:59 | disposition home or self-care (01) ==
LOC: US 13:58
PROVIDERS: PCP Family Medicine; Visit Provider Obstetrics & Gynecology
DX: E28.2 Polycystic ovarian syndrome (principal)
CPT/HCPCS: 76830; 76856

== ENCOUNTER 2024-11-14 13:19 | Outpatient (OUT) | payer MEDICAID, SELFPAY ==
--- OUTSIDE RECORDS SUMMARY | 2024-11-07 15:00 | XMS_ITS | Encounter Summary ---
Author Organization [facility] Address [address] [place] [address] Care Team Providers Care Pin Feather Machine Operator Name Role Phone Priya Castañeda MD Primary Care Provider [phone] Reason for Visit * Reason Comments Follow-up Encounter Details Date Type Department Care Team (Late st Contact Info) Description 11/07/2024 3:00 PM EDT Office Visit [facility] [address] [place] [address] Charis Bustamante PA [address] [place], [place] [id number] Irregular bleeding; Pelvic pain in female; Menorrhagia with regular cycle; Dysmenorrhea; Bleeding disorder; PCOS (polycystic ovarian syndrome) Social History Tobacco Use Types Packs/Day Years Used Date Smoking Tobacco: Never Smokeless Tobacco: Never Alcohol Use Standard Drinks/Week Comments Never 0 (1 standard drink = 0.6 oz pur e alcohol) Caffeine : none Comments No Sex and Gender Information Value Date Recorded Sex Assigned at Not on file Legal Sex Female 6:43 PM EDT Gender Identity Not on file Sexual Orientation Not on file documented as of this encounter Last Filed Vital Signs Vital Sign Reading Time Taken Comments Blood Pressure 108/82 11/07/2024 3:20 PM EDT Pulse - - Temperature - - Respiratory Rate - - Oxygen Saturation - - Inhaled Oxygen Concentration - - Weight 49.3 kg (108 lb 12 oz) 11/07/2024 3:20 PM EDT Height - - Body Mass Index 16.91 08/16/2023 4:03 PM EDT documented in this encounter Progress Notes * Simi Mendosa LPN - 11/07/2024 3:00 PM EDT Reason for Appointment: Patient ID: Leticia Castellano is a 19 y.o. female who presents for Follow-up Patient presents today for Acute Visit. MEDICATIONS Current Outpatient Medications Medication Instructions levonorgestrel-ethinyl estradiol (Jolessa) 0.15-0.03 MG tablet 1 tablet, Oral, Daily, Take 1 tabletby mouth daily norethindrone (MICRONOR) 0.35 mg, Oral, Every morning omeprazole (PRILOSEC) 40 mg, Oral, Daily before breakfast, Do not crush or chew. ALLERGIES No Known Allergies PROBLEMS Active Ambulatory Problems Diagnosis Date Noted Chronic generalized abdominal pain 10/29/2021 Disorder of breast 01/06/2023 Dysmenorrhea 01/06/2023 Irritable bowel syndrome 01/06/2023 Low self-esteem 01/06/2023 Low weight, pediatric, BMI less than 5th percentile for age 0610/30/2021 Major depression, single episode 01/06/2023 Menorrhagia 01/06/2023 Missed menses 01/06/2023 Moderate episode of recurrent major depressive disorder (HCC) 01/06/2023 Other specified depressive episodes 01/06/2023 Stress-related physiological response affecting medical condition 01/06/2023 Weight loss, non-intentional 10/29/2021 Resolved Ambulatory Problems Diagnosis Date Noted No Resolved Ambulatory Problems Past Medical History: Diagnosis Date Acid reflux (HHS-HCC) HISTORY PAST MEDICAL HISTORY SOCIAL HISTORY Past Medical History: Diagnosis Date Acid reflux (HHS-HCC) Social History Tobacco Use Smoking status: Never Smokeless tobacco: Never Substance Use Topics Alcohol use: Never Comment: Caffeine : none Drug use: Never FAMILY HISTORY Family History Problem Relation Name Age of Onset Uterine cancer Maternal Grandfather with mets* COPD Paternal Grandmother SURGICAL HISTORY Past Surgical History: Procedure Laterality Date COLONOSCOPY /EGD CT ANGIOGRAM HEART CORONARY 03/11/2023 CT ANGIOGRAM TAVR 03/11/2023 REVIEW OF SYSTEMS Review of Systems: Review of Systems Constitutional: Negative. HENT: Negative. Eyes: Negative. Respiratory: Negative. Cardiovascular: Negative. Gastrointestinal: Negative. Genitourinary: Negative. Musculoskeletal: Negative. Skin: Negative. Neurological: Negative. All other systems reviewed and are negative. Hematological: Negative. Endocrine: Negative. Allergic/Immunologic: Negative. OBJECTIVE Objective: OBGyn Exam Vitals: Estimated body mass index is 16.91 kg/m?? as calculated from the following: Height as of 08/16/23: 5' 7.25 . Weight as of this encounter: 108 lb 12 oz. BP: 108/82 Patient's last menstrual period was 10/16/2024. ASSESSMENT & PLAN ICD-10-CM 1. Irregular bleeding N92.6 2. Pelvic pain in female R10.2 3. Menorrhagia with regular cycle N92.0 Pt presents with heavy cycles, dysmenorrhea, pelvic pain, and irregular bleeding. Pt given labs andultrasound orders to have obtained. Pt to continue ocp and will discuss labs and ultrasound resultsat annual appt. Documented by Simi Mendosa LPN on behalf of: MADIE Roe documented in this encounter Plan of Treatment Upcoming Encounters Date Type Department Care Team (Late st Contact Info) Description 12/05/2024 2:00 PM EDT Office Visit [facility] [address] [place] [id number] Charis Bustamante PA [address] [place] [address] Scheduled Orders Name Type Priority Associated Diagnoses Orde r Schedule Factor 5 leiden Lab Routine Bleeding disorder Expected: 11/07/2024 (Approximate), Expires: 11/07/2025 Protein, total Lab Routine Bleeding disorder Expected: 11/07/2024 (Approximate), Expires: 11/07/2025 DRVVT Lab Routine Bleeding disorder Expected: 11/07/2024 (Approximate), Expires: 11/07/2025 Beta-2 glycoprotein antibodies Lab Routine Bleeding disorder Expected: 11/07/2024 (Approximate), Expires: 11/07/2025 Antithrombin III Lab Routine Bleeding disorder Expected: 11/07/2024 (Approximate), Expires: 11/07/2025 Protein S antigen, free Lab Routine Bleeding disorder Expected: 11/07/2024 (Approximate), Expires: 11/07/2025 Protein C activity Lab Routine Bleeding disorder Expected: 11/07/2024 (Approximate), Expires: 11/07/2025 Cardiolipin antibody, IgG Lab Routine Bleeding disorder Expected: 11/07/2024 (Approximate), Expires: 11/07/2025 Cardiolipin antibody, IgM Lab Routine Bleeding disorder Expected: 11/07/2024 (Approximate), Expires: 11/07/2025 hCG, quantitative, Lab Routine PCOS (polycystic ovarian syndrome) Ordered: 11/07/2024 TSH Lab Routine PCOS (polycystic ovarian syndrome) Ordered: 11/07/2024 T4, free Lab Routine PCOS (polycystic ovarian syndrome) Ordered: 11/07/2024 CBC and differential Lab Routine PCOS (polycystic ovarian syndrome) Ordered: 11/07/2024 Follicle stimulating hormone Lab Routine PCOS (polycystic ovarian syndrome) Ordered: 11/07/2024 Luteinizing hormone Lab Routine PCOS (polycystic ovarian syndrome) Ordered: 11/07/2024 Hemoglobin A1c Lab Routine Irregular bleeding Menorrhagia with regular cycle Dysmenorrhea Bleeding disorder Ordered: 11/07/2024 DHEA-sulfate Lab Routine PCOS (polycystic ovarian syndrome) Ordered: 11/07/2024 DHEA Lab Routine PCOS (polycystic ovarian syndrome) Expected: 11/07/2024 (Approximate), Expires: 11/07/2025 US Pelvis w/ TV Imaging Routine PCOS (polycystic ovarian syndrome) Expected: 11/07/2024, Expires: 11/07/2025 Factor 8 ristocetin cofactor Lab Routine Irregular bleeding Menorrhagia with regular cycle Dysmenorrhea Bleeding disorder Expected: 11/07/2024 (Approximate), Expires: 11/07/2025 documented as of this encounter Visit Diagnoses Diagnosis Irregular bleeding Irregular menstrual cycle Pelvic pain in female Unspecified symptom associated with female genital organs Menorrhagia with regular cycle Dysmenorrhea Bleeding disorder Unspecified hemorrhagic conditions PCOS (polycystic ovarian syndrome) Polycystic ovaries documented in this encounter Care Teams Pin Feather Machine Operator Relationship Specialty Start Date End Date Priya Castañeda MD [address] [place] [address] PCP - General Family Medicine 10/20/22 documented as of this encounter
--- OUTSIDE RECORDS SUMMARY | 2024-11-14 13:22 | XMS_ITS | Encounter Summary ---
Author Organization [facility] Address [address] [place] [address] Care Team Providers Care Implant Coordinator Name Role Phone Refugio Herbert MD Primary Care Provider [phone] Encounter Details Date Type Department Care Team (Late st Contact Info) Description 11/12/2024 Clinisync Result Encounter [facility] External Department Unsolicited [...] EDT Office Visit [facility] BCP OB [address] [facility] [place] [address] Charis Bustamante PA [address] [facility] [address] [place], [place] [address] documented as of this encounter Procedures Procedure Name Priority Date/Time Associated Diagnosis Comments US PELVIS W/ TRANSVAGINAL 11/12/2024 8:04 AM EDT documented in this encounter Results * US PELVIS W/ TRANSVAGINAL (11/12/2024 8:04 AM EDT) Anatomical Region Laterality Modality Other 11/12/2024 8:04 AM EDT Narrative 11/12/2024 8:06 AM EDT [place] [id number] Ultrasound Report Signed Patient: LETICIA THOMPSON MR#: [id number] : 2005 Acct:[id number] Age/Sex: 19 / F ADM Date: 11/10/24 Loc: US Attending Dr: Iman Mcgregor D.O. Ordering Physician: Iman Mcgregor D.O. Date of Service: 11/10/24 Procedure(s): US pelvis w/ transvaginal Accession Number(s): [id number] cc: REFUGIO HERBERT ; Iman Mcgregor D.O. [place] [id number] Patient Name: LETICIA THOMPSON MRN: [id number] date: 2005 Sex: F Assigned Patient Location: Current Patient Location: Accession/Order Number: [id number] Exam Date: 11/12/2024 08:00 Report Date: 11/12/2024 08:04 At the request of: IMAN MCGREGOR DO Procedure: US pelvis w/ transvaginal ULTRASOUND PELVIS WITH TRANSVAGINAL COMPARISON: CT 10/30/2023 CLINICAL DATA: Polycystic ovary syndrome. Dysmenorrhea. Real-time ultrasound evaluation the pelvis was performed utilizing both a transabdominal and transvaginal approach. TRANSABDOMINAL: Estimated uterine size is approximately 9.8 x 3.4 x 5.1 cm. No focal myometrial abnormalities are noted. The endometrial lining is estimated at 5 - 6 mm. Both ovaries are visualized. No dominant adnexal cysts are seen. TRANSVAGINAL: Transvaginal imaging was performed better evaluate the uterus and adnexa. By this approach no focal myometrial abnormalities are identified. The endometrial lining measures approximately 3 mm in thickness. Both ovaries are again visualized. The right measures 2.2 x 1.6 x 2.0 cm. The left ovary measures 2.4 x 1.4 x 1.8 cm. There are a few small follicles. There are no dominant adnexal cysts. There is documentation of ovarian blood flow with resistive index of 0.6 on the right 0.5 on the left. No free fluid is seen. US/US pelvis w/ transvaginal IMPRESSION: WITHIN NORMAL LIMITS. Impression dictated by: Simi Pederson M.D. 11/12/2024 8:04 AM Dictation Location: [place] [address] Electronically authenticated by: [id number] Y Date: 11/12/2024 08:04 Dictated By: Simi Pederson M.D. Signed By: 11/12/24805 DD/ 3 TD/TT: Donkey Ride Operator: Procedure Note Radiology, Radiologist, MD - 11/12/2024 [place] [address] Ultrasound Report Signed Patient: LETICIA THOMPSON AMR#: [id number] : 2005Acct:[id number] Age/Sex: Date: 11/10/24 Loc: US Attending Dr: Iman Mcgregor D.O. Ordering Physician: Iman Mcgregor D.O. Date of Service: 11/10/24 Procedure(s): US pelvis w/ transvaginal Accession Number(s): [id number] cc: REFUGIO HERBERT ; Iman Mcgregor D.O. The [place] [address] Patient Name: LETICIA THOMPSON MRN: [id number] date: 2005 Sex: F Assigned Patient Location: US Current Patient Location: Accession/Order Number: [id number] Exam Date: 11/12/2024 08:00 Report Date: 11/12/2024 08:04 At the request of: IMAN MCGREGOR DO Procedure: US pelvis w/ transvaginal ULTRASOUND PELVIS WITH TRANSVAGINAL COMPARISON: CT 10/30/2023 CLINICAL DATA: Polycystic ovary syndrome. Dysmenorrhea. Real-time ultrasound evaluation the pelvis was performed utilizing both a transabdominal and transvaginal approach. TRANSABDOMINAL: Estimated uterine size is approximately 9.8 x 3.4 x 5.1cm. No focal myometrial abnormalities are noted. The endometrial lining is estimated at 5 - 6 mm. Both ovaries are visualized. No dominant adnexal cysts are seen. TRANSVAGINAL: Transvaginal imaging was performed better evaluate theuterus and adnexa. By this approach no focal myometrial abnormalities are identified. The endometrial lining measures approximately 3 mm inthickness. Both ovaries are again visualized. The right measures 2.2 x 1.6 x 2.0 cm. The left ovary measures 2.4 x 1.4 x 1.8 cm. There are a few smallfollicles. There are no dominant adnexal cysts. There is documentation of ovarianblood flow with resistive index of 0.6 on the right 0.5 on the left. No freefluid is seen. US/US pelvis w/ transvaginal IMPRESSION: WITHIN NORMAL LIMITS. Impression dictated by: Simi Pederson M.D. 11/12/2024 8:04 AM Dictation Location: [place] [address] Electronically authenticated by: [id number] Y Date: 508:04 Dictated By: Simi Pederson M.D. Signed By:11/12/24 0806 DD/ 0804 TD/TT: Donkey Ride Operator: us Generic External Data Provider [facility] Final Result documented in this encounter Visit Diagnoses Not on filedocumented in this encounter Care Teams Implant Coordinator Relationship Specialty Start Date End Date Refugio Herbert MD [address] [place] [address] PCP - General Family Medicine 10/20/22 documented as of this encounter
--- OUTSIDE RECORDS SUMMARY | 2024-11-14 13:22 | XMS_ITS | Encounter Summary ---
Author Organization [facility] Address [address] [place] [address] Care Team Providers Care Weaving Supervisor Name Role Phone Priya Castañeda MD Primary Care Provider [phone] Priya Castañeda MD Unavailable Encounter Details Date Type Department Care Team (Late st Contact Info) Description 02/10/2023 Clinisync Result Encounter [facility] External Department Unsolicited Iman Mcgregor DO [address] [facility] [address] Lu[place], [facility] Social History Tobacco Use Types [...] Office Visit [facility] BCP OB [address] [facility] [phone] Charis Bustamante PA [address] [facility] [address] [place], [place] [address] documented as of this encounter Procedures Procedure Name Priority Date/Time Associated Diagnosis Comments US OB GROWTH 02/10/2023 3:16 PM EDT documented in this encounter Results * US OB GROWTH (02/10/2023 3:16 PM EDT) Anatomical Region Laterality Modality Other 02/10/2023 3:16 PM EDT Narrative 02/10/2023 3:16 [place] [address] Ultrasound Report Signed Patient: LETICIA THOMPSON MR#: [id number] : 2005 Acct:[id number] Age/Sex: 17 / F ADM Date: 02/10/23 Loc: US Attending Dr: Iman Mcrgegor D.O. Ordering Physician: Iman Mcgregor D.O. Date of Service: 02/10/23 Procedure(s): US OB growth Accession Number(s): [id number] cc: Iman Mcgregor D.O.; Physician,Non-Staff MCedric The [place] [id number] Patient Name: LETICIA THOMPSON MRN: [id number] date: 2005 Sex: F Assigned Patient Location: Current Patient Location: US Accession/Order Number: [id number] Exam Date: 02/10/2023 08:02 Report Date: 02/10/2023 [...] Signed By: 02/10/23 1518 DD/ 15 TD/TT: Career Transition Specialist: Procedure Note Radiology, Radiologist, MD - 02/11/2023 [place] [address] Ultrasound Report Signed Patient: LETICIA THOMPSON AMR#: [id number] : 2005Acct:[id number] Age/Sex: 17 / FADM Date: 02/10/23 Loc: US Attending Dr: Iman Mcgregor D.O. Ordering Physician: Iman Mcgregor D.O. Date of Service: 02/10/23 Procedure(s): US OB growth Accession Number(s): [id number] cc: Iman Mcgregor D.O.; Physician,Non-Staff Dipak The [place] [address] Patient Name: LETICIA THOMPSON MRN: [facility]:[id number] date: 2005 Sex: F Assigned Patient Location: US Current Patient Location: US Accession/Order Number: [id number] Exam Date: 02/10/2023 08:02 Report Date: 02/10/2023 [...] M.D. Signed By:02/10/23 1518 DD/ 15 TD/TT: Career Transition Specialist: us Iman Balbir DO [facility] Final Result documented in this encounter Visit Diagnoses Not on filedocumented in this encounter Care Teams Weaving Supervisor Relationship Specialty Start Date End Date Priya Castañeda MD [address] [place] [address] PCP - General Family Medicine 10/20/22 Priya Castañeda MD [address] [place] [address] PCP - Medical [place] [employer] 05/23/23 08/09/24 documented as of this encounter
--- OUTSIDE RECORDS SUMMARY | 2024-11-14 13:22 | XMS_ITS | Encounter Summary ---
Author Organization [facility] Address [address] [place] [address] Care Team Providers Care Habilitation Training Specialist Name Role Phone Priya Castañeda MD Primary Care Provider [phone] Priya Castañeda MD Unavailable Encounter Details Date Type Department Care Team (Late Contact Info) Description 03/01/2023 Orders Only [facility] [address] [place] [address] Hugh Mcgregor DO [address] [facility] [place] [address] Social History Tobacco Use Types Packs/Day [...] [place] [address] Charis Bustamante PA [address] [facility] [place] [address] documented as of this encounter Procedures [...] on filedocumented in this encounter Care Teams Habilitation Training Specialist Relationship Specialty Start Date End Date Priya Castañeda MD [address] [facility] [address] [place], [place] [address] PCP - General Family Medicine 10/20/22 Priya Castañeda MD [address] [place], [place] [address] PCP - Medical [place] [employer] 05/23/23 08/09/24 documented as of this encounter
--- OUTSIDE RECORDS SUMMARY | 2024-11-14 13:22 | XMS_ITS | Encounter Summary ---
Author Organization [facility] Address [address] [place] [address] Care Team Providers Care Digital Advisor Name Role Phone Refugio Herbert MD Primary Care Provider [phone] Refugio Herbert MD Unavailable Encounter Details Date [...] Visit [facility] BCP OB [address] [place] [address] Charis Bustamante PA [address] [place], [place] [address] documented as of this encounter Procedures Procedure Name Priority Date/Time Associated Diagnosis Comments US RENAL BI 02/23/2023 3:08 PM EDT documented in this encounter Results * US RENAL BI (02/23/2023 3:08 PM EDT) Anatomical Region Laterality Modality Other 02/23/2023 3:08 PM EDT Narrative 02/23/2023 3:08 [place] [address] Ultrasound Report Signed Patient: LETICIA THOMPSON MR#: [id number] : 2005 Acct:[id number] Age/Sex: 17 / F ADM Date: 02/23/23 Loc: [facility] [address]: Iman Mcgregor D.O. Ordering Physician: Iman Mcgregor D.O. Date of Service: 02/23/23 Procedure(s): US renal BI Accession Number(s): [id number] cc: REFUGIO HERBERT ; Iman Mcgregor D.O. [place] [address] Patient Name: LETICIA THOMPSON MRN: [id number] date: 2005 Sex: F Assigned Patient Location: [facility] Current Patient Location: [facility] Accession/Order Number: [id number] Exam Date: 02/23/2023 13:39 Report Date: 02/23/2023 [...] Signed By: 02/23/23 1510 DD/ 1508 TD/TT: Group Leader Semiconductor Processing: Procedure Note Radiology, Radiologist, - 02/23/2023 [place] [address] Ultrasound Report Signed Patient: LETICIA THOMPSON AMR#: [id number] : 2005Acct:[id number] Age/Sex: 17 / FADM Date: 02/23/23 Loc: [facility] 254-[address]: Iman Mcgregor D.O. Ordering Physician: Iman Mcgregor D.O. Date of Service: 02/23/23 Procedure(s): US renal BI Accession Number(s): [id number] cc: REFUGIO HERBERT ; Iman Mcgregor D.O. The [place] [address] Patient Name: LETICIA THOMPSON MRN: [id number] date: 2005 Sex: F Assigned Patient Location: [facility] Current Patient Location: [facility] Accession/Order Number: [id number] Exam Date: 02/23/2023 13:39 Report Date: 02/23/2023 [...] M.D. Signed By:02/23/23 1510 DD/ 1508 TD/TT: Group Leader Semiconductor Processing: us Generic External Data Provider [facility] Final Result documented in this encounter Visit Diagnoses Not on filedocumented in this encounter Care Teams Digital Advisor Relationship Specialty Start Date End Date Refugio Herbert MD [address] [place] [address] PCP - General Family Medicine 10/20/22 Refugio Herbert MD [address] [place] [address] PCP - Medical [place] [employer] 05/23/23 08/09/24 documented as of this encounter
--- OUTSIDE RECORDS SUMMARY | 2024-11-14 13:22 | XMS_ITS | Encounter Summary ---
Author Organization [facility] Address [address] [place] [address] Care Team Providers Care Traveling Sales Representative Name Role Phone Priya Castañeda MD Primary Care Provider [phone] Priya Castañeda MD Unavailable Encounter Details Date Type Department Care Team (Late st Contact Info) Description 02/10/2023 Clinisync Result Encounter NOMS External Department Unsolicited Iman Mcgregor DO [address] [facility] [address] [place], [facility]11 Social History Tobacco Use Types Packs/Day Years [...] Visit [facility] BCP OB [address] [facility] [place] [id number] Charis Bustamante PA [address] [facility] [address] [place], [place] [phone] documented as of this encounter Procedures Procedure Name Priority Date/Time Associated Diagnosis Comments US OB TRANSVAGINAL 02/10/2023 3: 18 PM EDT documented in this encounter Results * US OB TRANSVAGINAL (02/10/2023 3:18 PM EDT) Anatomical Region Laterality Modality Other 02/10/2023 3:18 PM EDT Narrative 02/10/2023 3:18 [place] [address] Ultrasound Report Signed Patient: LETICIA THOMPSON MR#: [id number] : 2005 Acct:[id number] Age/Sex: 17 / F ADM Date: 02/10/23 Loc: US Attending Dr: Iman Mcgregor D.O. Ordering Physician: Iman Mcgregor D.O. Date of Service: 02/10/23 Procedure(s): US OB transvaginal Accession Number(s): [id number] cc: Iman Mcgregor D.O.; Physician,Non-Staff M.Skip The [place] [id number] Patient Name: LETICIA THOMPSON MRN: TBH:[id number] date: 2005 Sex: F Assigned Patient Location: US Current Patient Location: Accession/Order Number: [id number] Exam Date: 02/10/2023 08:02 Report Date: 02/10/2023 [...] Signed By: 02/11/23 1059 DD/ 1518 TD/TT: Tool Trouble Shooter: Procedure Note Radiology, Radiologist, MD - 02/11/2023 [place] [address] Ultrasound Report Signed Patient: LETICIA THOMPSON AMR#: [id number] : 2005Acct:[id number] Age/Sex: 17 / FADM Date: 02/10/23 Loc: US Attending Dr: Iman Mcgregor D.O. Ordering Physician: Iman Mcgregor D.O. Date of Service: 02/10/23 Procedure(s): US OB transvaginal Accession Number(s): [id number] cc: Iman Mcgregor D.O.; Physician,Non-Staff Dipak The [place] [address] Patient Name: LETICIA THOMPSON MRN: [facility]:[id number] date: 2005 Sex: F Assigned Patient Location: US Current Patient Location: Accession/Order Number: [id number] Exam Date: 02/10/2023 08:02 Report Date: 02/10/2023 [...] M.D. Signed By:02/11/23 1059 DD/ 1518 TD/TT: Tool Trouble Shooter: us Iman Balbir DO [facility] Final Result documented in this encounter Visit Diagnoses Not on filedocumented in this encounter Care Teams Traveling Sales Representative Relationship Specialty Start Date End Date Priya Castañeda MD [address] [place], [place] [address] PCP - General Family Medicine 10/20/22 Priya Csatañeda MD [address] [place], [place] [address] PCP - Medical [place] [employer] 05/23/23 08/09/24 documented as of this encounter
--- OUTSIDE RECORDS SUMMARY | 2024-11-14 13:22 | XMS_ITS | Clinical Summary ---
Author Organization [facility] Address [address] [place] [address] Care Team Providers Care Network Contractor Name Role Phone Priya Castañeda MD Primary Care Provider [phone] Allergies No known active allergies Medications amitriptyline [...] place to sleep or slept in a longterm (including now)? No 10/29/2021 Comments No Sex [...] Name:VIVIANE THOMPSON Date of :1984 (Home) Address: [address] [place] [address] Payer ID:[id number] (NAIC) Type:Commercial Address: [place] [id number] Care Teams Network Contractor Relationship Specialty Start Date End Date Priya Castañeda MD [facility] [place] [address] PCP - General Family Medicine 10/29/21
--- OUTSIDE RECORDS SUMMARY | 2024-11-14 13:22 | XMS_ITS | Encounter Summary ---
Author Organization [facility] Address [address] [place] [address] Care Team Providers Care Fractionation Supervisor Name Role Phone Priya Castañeda MD Primary Care Provider [phone] Priya Castañeda MD Unavailable Encounter Details Date Type Department Care Team (Late st Contact Info) Description 02/10/2023 Clinisync Result Encounter NOMS External Department Unsolicited Iman Mcgregor DO [address] [facility] [address] Luan [place], [facility]11 Social History Tobacco Use Types Packs/Day [...] EDT Office Visit [facility]S BCP OB [address] [facility] [phone] Charis Bustamante PA [address] [facility] [address] [place], [place] [address] documented as of this encounter Procedures Procedure Name Priority Date/Time Associated Diagnosis Comments US OB PLACENTA 02/10/2023 3:18 PM EDT documented in this encounter Results * US OB PLACENTA (02/10/2023 3:18 PM EDT) Anatomical Region Laterality Modality Other 02/10/2023 3:18 PM EDT Narrative 02/10/2023 3:18 [place] [address] Ultrasound Report Signed Patient: LETICIA THOMPSON MR#: [id number] : 2005 Acct:[id number] Age/Sex: 17 / F ADM Date: 02/10/23 Loc: US Attending Dr: Iman Mcgregor D.O. Ordering Physician: Iman Mcgregor D.O. Date of Service: 02/10/23 Procedure(s): US OB placenta Accession Number(s): [id number] cc: Iman Mcgregor D.O.; Physician,Non-Staff M.DBety [place] [address] Patient Name: LETICIA THOMPSON MRN: [id number] date: 2005 Sex: F Assigned Patient Location: Current Patient Location: Accession/Order Number: [id number] Exam Date: 02/10/2023 08:02 Report Date: 02/10/2023 [...] Signed By: 02/10/23 1520 DD/ 17 TD/TT: Dust Operator: Procedure Note Radiology, Radiologist, MD - 02/11/2023 [place] [address] Ultrasound Report Signed Patient: LETICIA THOMPSON AMR#: [id number] : 2005Acct:[id number] Age/Sex: 17 / FADM Date: 02/10/23 Loc: US Attending Dr: Iman Mcgregor D.O. Ordering Physician: Iman Mcgregor D.O. Date of Service: 02/10/23 Procedure(s): US OB placenta Accession Number(s): [id number] cc: Iman Mcgregor D.O.; Physician,Non-Staff Dipak The [place] [address] Patient Name: LETICIA THOMPSON MRN: [facility]:[id number] date: 2005 Sex: F Assigned Patient Location: US Current Patient Location: US Accession/Order Number: [id number] Exam Date: 02/10/2023 08:02 Report Date: 02/10/2023 [...] M.D. Signed By:02/10/23 1520 DD/ 1518 TD/TT: Dust Operator: us Iman Balbir DO [facility] Final Result documented in this encounter Visit Diagnoses Not on filedocumented in this encounter Care Teams Fractionation Supervisor Relationship Specialty Start Date End Date Priya Castañeda MD [address] [place], [place] [address] PCP - General Family Medicine 10/20/22 Priya Castañeda MD [address] [place] [place], [place] [address] PCP - Medical [place] [employer] 05/23/23 08/09/24 documented as of this encounter
--- OUTSIDE RECORDS SUMMARY | 2024-11-14 13:22 | XMS_ITS | Encounter Summary ---
Author Organization [facility] Address [address] [place] [address] Care Team Providers Care Program Administrator Name Role Phone Priya Castañeda MD Primary Care Provider [phone] Priya Castañeda MD Unavailable Encounter Details Date Type Department Care Team (Late Contact Info) Description 03/13/2023 Abstract [facility] [address] [place] [address] Priya Castañeda MD [address] [place] [address] Social History Tobacco Use Types [...] EDT Office Visit [facility] BCP OB [address] [facility] [place] [address] Charis Bustamante PA [address] [facility] [place] [address] documented as of this encounter Visit Diagnoses Not on filedocumented in this encounter Care Teams Program Administrator Relationship Specialty Start Date End Date Priya Castañeda MD [address] [facility] [address] [place], [place] [address] PCP - General Family Medicine 10/20/22 Priya Castañeda MD [address] [facility] [address] [place], [place] [address] PCP - Medical [place] [employer] 05/23/23 08/09/24 documented as of this encounter
--- OUTSIDE RECORDS SUMMARY | 2024-11-14 13:22 | XMS_ITS | Encounter Summary ---
Author Organization [facility] tem Address [id number] [address] [place] [address] Care Team Providers Care Business Technology Professor Name Role Phone Priya Castañeda MD Primary Care Provider [phone] Encounter Details Date Type Department Care Team (Late st Contact Info) Description 03/12/2023 Refill [facility] - Labor [address] [place] [phone] Na Farrell RN Social History Tobacco Use [...] on filedocumented in this encounter Care Teams Business Technology Professor Relationship Specialty Start Date End Date Priya Castañeda MD PCP - General Family Medicine 03/11/23 documented as of this encounter
--- OUTSIDE RECORDS SUMMARY | 2024-11-14 13:22 | XMS_ITS | Encounter Summary ---
Author Organization [facility] Address [address] [place] [address] Care Team Providers Care Service Operator Name Role Phone Priya Castañeda MD Primary Care Provider [phone] Priya Castañeda MD Unavailable Encounter Details Date Type Department Care Team (Late Contact Info) Description 03/13/2023 Abstract [facility] [address] [place] [address] Priya Castañeda MD [address] [place] [address] Social History Tobacco Use Types [...] EDT Office Visit [facility] BCP OB [address] [facility] [place] [address] Charis Bustamante PA [address] [facility] [place] [address] documented as of this encounter Visit Diagnoses Not on filedocumented in this encounter Care Teams Service Operator Relationship Specialty Start Date End Date Priya Castañeda MD [address] [place] [address] [place], [place] [address] PCP - General Family Medicine 10/20/22 Priya Castañeda MD [address] [place], [place] [address] PCP - Medical [place] Commercial 05/23/23 08/09/24 documented as of this encounter
--- OUTSIDE RECORDS SUMMARY | 2024-11-14 13:22 | XMS_ITS | Encounter Summary ---
Author Organization [facility] Address [address] [place] [address] Care Team Providers Care Load Planner Name Role Phone Priya Castañeda MD Primary Care Provider [phone] Priya Castañeda MD Unavailable Encounter Details Date Type Department Care Team (Late Contact Info) Description 12/10/2022 Abstract [facility] [address] [place] [address] Priya Castañeda MD [address] [place] [address] Social History Tobacco Use Types [...] Office Visit [facility] BCP OB [address] [facility] [place] [address] Charis Bustamante PA [address] [place] [place] [address] documented as of this encounter Visit Diagnoses Not on filedocumented in this encounter Care Teams Load Planner Relationship Specialty Start Date End Date Priya Castañeda MD [address] [facility] [address] [place], [place] [address] PCP - General Family Medicine 10/20/22 Priya Castañeda MD [address] [facility] [address] [place], [place] [address] PCP - Medical [place] Commercial 05/23/23 08/09/24 documented as of this encounter
--- OUTSIDE RECORDS SUMMARY | 2024-11-14 13:22 | XMS_ITS | Encounter Summary ---
Author Organization [facility] Address [address] [place] [address] Care Team Providers Care Sewing Machine Operator Semiautomatic Name Role Phone Priya Castañeda MD Primary Care Provider [phone] Priya Castañeda MD Unavailable Encounter Details Date Type Department Care Team (Late Contact Info) Description 01/27/2023 Abstract [facility] OB [address] [facility] [place] [address] Charis Bustamante PA [address] [place] [address] [place], [place] [phone] Social History Tobacco Use Types Packs/Day Years [...] Visit [facility]OMS BCP OB [address] [place] [address] Charis Bustamante PA [address] [place] [address] [place] [address] documented as of this encounter Visit Diagnoses Not on filedocumented in this encounter Care Teams Sewing Machine Operator Semiautomatic Relationship Specialty Start Date End Date Priya Castañeda MD [address] [place], [place] [address] PCP - General Family Medicine 10/20/22 Priya Castañeda MD [address] [facility] [place] [address] PCP - Medical [place] Commercial 05/23/23 08/09/24 documented as of this encounter
--- OUTSIDE RECORDS SUMMARY | 2024-11-14 13:22 | XMS_ITS | Clinical Summary ---
Author Organization [email or web address] tem Address [id number] [address] [place] [address] Care Team Providers Care Net Developer Name Role Phone Priya Castañeda MD Primary Care Provider [phone] Allergies No known active allergies Medications omeprazole [...] on file Insurance [employer] [place] Care Teams Net Developer Relationship Specialty Start Date End Date Priya Castañeda MD PCP - General Family Medicine 03/11/23
--- OUTSIDE RECORDS SUMMARY | 2024-11-14 13:22 | XMS_ITS | Encounter Summary ---
Author Organization [facility] Address [address] [place] [address] Care Team Providers Care Elementary Education Tutor Name Role Phone Priya Castañeda MD Primary Care Provider [phone] Priya Castaeñda MD Unavailable Encounter Details Date Type Department Care Team (Late Contact Info) Description 03/11/2023 Abstract [facility] [address] [place] [address] Priya Castañeda MD [address] [place] [address] Social History Tobacco Use Types [...] [address] [facility] [address] Charis Bustamante PA [address] [place] [address] documented as of this encounter Visit Diagnoses Not on filedocumented in this encounter Care Teams Elementary Education Tutor Relationship Specialty Start Date End Date Priya Castañeda MD [address] [facility] [address] [place], [place] [address] PCP - General Family Medicine 10/20/22 Priya Castañeda MD [address] [facility] [address] [place], [place] [address] PCP - Medical [place] [employer] 05/23/23 08/09/24 documented as of this encounter
--- OUTSIDE RECORDS SUMMARY | 2024-11-14 13:22 | XMS_ITS | Encounter Summary ---
Author Organization [facility] Address [address] [place] [address] Care Team Providers Care Practice Lead Name Role Phone Priya Castañeda MD Primary Care Provider [phone] Priya Castañeda MD Unavailable Encounter Details Date Type Department Care Team (Late Contact Info) Description 12/10/2022 Abstract [facility] [address] [place] [address] Priya Castañeda MD [address] [place] [address] Social History Tobacco Use Types [...] Visit [facility] BCP OB [address] [facility] [place] [address] Charis Bustamante PA [address] [facility] [place] [address] documented as of this encounter Visit Diagnoses Not on filedocumented in this encounter Care Teams Practice Lead Relationship Specialty Start Date End Date Priya Castañeda MD [address] [facility] [address] [place], [place] [address] PCP - General Family Medicine 10/20/22 Priya Castañeda MD [address] [facility] [address] [place], [place] [address] PCP - Medical [place] [employer] 05/23/23 08/09/24 documented as of this encounter
--- OUTSIDE RECORDS SUMMARY | 2024-11-14 13:23 | XMS_ITS | Clinical Summary ---
Author Organization [facility] Address [address] [place] [address] Care Team Providers Care Cupola Charger Insulation Name Role Phone Refugio Herbert MD Primary Care Provider [phone] Allergies No known active allergies Medications omeprazole (PriLOSEC) [address] Edgar ons:Third trimester ([facility]) Take 1 capsule (40 mg) by mouth in the morning. Take before meals. Do not crush or chew.. 30 capsule 11 03/08/2023 Active norethindrone (Micronor) 0.35 MG tabletIndicatio ns:6 weeks follow-up ([facility]) TAKE 1 TABLET BY MOUTH IN THE [...] Encounters Date Type Department Care Team Description 11/12/2024 Clinisync Result Encounter NOMS External Department Unsolicited Provider, Generic External Data 11/07/2024 3:00 PM EDT Office Visit NOM[facility] [address] [place] [address] Charis Bustamante PA Irregular bleeding; Pelvic pain in female; Menorrhagia with regular cycle; Dysmenorrhea; Bleeding disorder; PCOS (polycystic ovarian syndrome) 11/07/2024 Bamboo flowsheet NOM[facility] [address] [place] [address] Charis Bustamatne PA 08/15/2024 10:30 AM EDT Office Visit NOM[facility] [address] [place] [address] Charis Bustamante PA Uses control 08/15/2024 Bamboo flowsheet NOM[facility] [address] [place] [address] Charis Bustamante PA from Last 3 Months [...] BCP OB [address] [place] [address] Charis Bustamante PA [address] [place] [address] Health Maintenance Due Date Last Done Comments Influenza Vaccine (Season Ended) 2025 Procedures Procedure Name Priority Date/Time Associated Diagnosis Comments US PELVIS W/ TRANSVAGINAL 11/12/2024 8:04 AM EDT POCT URINALYSIS DIPSTICK Routine 08/15/2024 10:58 AM EDT Uses control POCT , URINE Routine 08/15/2024 10:56 AM EDT Uses control from Last 3 Months Results * US PELVIS W/ TRANSVAGINAL (11/12/2024 8:04 AM EDT) Anatomical Region Laterality Modality Other 11/12/2024 8:04 AM EDT Narrative 11/12/2024 8:06 AM EDT The [address] [address] Ultrasound Report Signed Patient: LETICIA THOMPSON MR#: [id number] : 2005 Acct:[id number] Age/Sex: 19 / F ADM Date: 11/10/24 Loc: US Attending Dr: Iman Mcgregor D.O. Ordering Physician: Iman Mcgregor D.O. Date of Service: 11/10/24 Procedure(s): US pelvis w/ transvaginal Accession Number(s): [id number] cc: REFUGIO HERBERT Corey D.O. [address] [address] Patient Name: LETICIA THOMPSON MRN: [facility]:[id number] date: 2005 Sex: F Assigned Patient Location: US Current Patient Location: Accession/Order Number: [id number] Exam Date: 11/12/2024 08:00 Report Date: 11/12/2024 [...] Pederson M.D. 11/12/2024 8:04 AM Dictation Location: [place] [address] Electronically authenticated by: [id number] Y Date: 11/12/2024 08:04 Dictated By: Simi Pederson M.D. Signed By: 11/12/24 0806 DD/ 0804 TD/TT: Chain Pegger: Procedure Note Radiology, Radiologist, - 11/12/2024 The [place] [id number] Ultrasound Report Signed Patient: LETICIA THOMPSON AMR#: [id number] : 2005Acct:[id number] Age/Sex: 19 FADM Date: 11/10/24 Loc: US Attending Dr: Iman Mcgregor D.O. Ordering Physician: Iman Mcgregor D.O. Date of Service: 11/10/24 Procedure(s): US pelvis w/ transvaginal Accession Number(s): [id number] cc: REFUGIO HERBERT ; Iman Mcgregor D.O. [address] [address] Patient Name: LETICIA THOMPSON MRN: [facility]:[id number] date: 2005 Sex: F Assigned Patient Location: US Current Patient Location: Accession/Order Number: [id number] Exam Date: 11/12/2024 08:00 Report Date: 11/12/2024 [...] Pederson M.D. 11/12/2024 8:04 AM Dictation Location: [place] [address] Electronically authenticated by: [id number] Y Date: 508:04 Dictated By: Simi Pederson M.D. Signed By:11/12/24805 DD/ 3 TD/TT: Chain Pegger: Generic External Data Provider [facility] Final Result * POCT urinalysis dipstick manually resulted (08/15/2024 [...] 3 Months Insurance [employer] [place]ICA[place] Member Subscriber Plan / Payer (Ef fective 2023-Present) Name:Leticia Thompson Relation to Subscriber:Self Name:Leticia Thompson Payer ID:Not on file Group ID:[id number] Type:Not on file Address: [facility] [id number] [place] [id number] Care Teams Cupola Charger Insulation Relationship Specialty Start Date End Date Refugio Herbert MD [address] [place] [address] PCP - General Family Medicine 10/20/22
--- OUTSIDE RECORDS SUMMARY | 2024-11-14 13:23 | XMS_ITS | Encounter Summary ---
Author Organization [facility] Address [address] [place] [address] Care Team Providers Care Analyzer Sales Name Role Phone Priya Castañeda MD Primary Care Provider [phone] Encounter Details Date Type Department Care Team (Late Contact Info) Description 11/07/2024 Bamboo flowsheet [facility] OB [address] [facility] [place] [address] Charis Bustamante PA [address] [place] [address] Dr [place], [facility] Social History Tobacco Use Types [...] 12/05/2024 2:00 PM EDT Office Visit [facility] OB [address] [facility] [place] [address] Charis Bustamante, PA [address] [place] [address] Dr [place], [place] [address] documented as of this encounter Visit Diagnoses Not on filedocumented in this encounter Care Teams Analyzer Sales Relationship Specialty Start Date End Date Priya Castañeda MD [address] [place] [address] PCP - General Family Medicine 10/20/22 documented as of this encounter
--- OUTSIDE RECORDS SUMMARY | 2024-11-14 13:23 | XMS_ITS | Encounter Summary ---
Author Organization [facility] Address [address] [place] [address] Care Team Providers Care Aviation Engineer Name Role Phone Priya Castañeda MD Primary Care Provider [phone] Priya Castañeda MD Unavailable Encounter Details Date Type Department Care Team (Late Contact Info) Description 10/18/2022 Abstract [facility] OB [address] [facility] [address] Hugh Mcgregor [address] [place], [place] [id number] Social History Tobacco Use Types Packs/Day Years [...] EDT Office Visit [facility] BCP OB [address] [facility] [place] [address] Charis Bustamante PA [address] [place] [address] documented as of this encounter Visit Diagnoses Not on filedocumented in this encounter Care Teams Aviation Engineer Relationship Specialty Start Date End Date Priya Castañeda MD [address] [place], [place] [address] PCP - General Family Medicine 10/20/22 Priya Castañeda MD [address] [place] [address] PCP - Medical [place] Commercial 05/23/23 08/09/24 documented as of this encounter
[2024-11-14 14:07] LABS: Basophils Percent Auto 0.3 % (0.2-2.0); Eosinophils Absolute Auto 0.1 10^3/uL (0.0-0.7); Eosinophils Percent Auto 0.8 % (0.9-7.0); Hematocrit 43.1 % (36.0-48.0); Hemoglobin 14.5 g/dL (12.0-16.0); Immature Granulocytes Abs Auto 0.01 10^3/uL (0.00-0.03); Immature Granulocytes Pct Auto 0.2 % (0.0-0.5); Lymphocytes Absolute Auto 1.9 10^3/uL (1.2-3.8); Lymphocytes Percent Auto 32.2 % (20.5-60.0); Mean Corpuscular HGB Conc 33.6 g/dL (29.9-35.2); Mean Corpuscular Hemoglobin 28.8 pg (26.7-34.0); Mean Corpuscular Volume 85.7 fL (81.0-99.0); Mean Platelet Volume 9.1 fL (9.5-13.5); Monocytes Absolute Auto 0.3 10^3/uL (0.3-0.8); Monocytes Percent Auto 5.4 % (1.7-12.0); Neutrophils Absolute Auto 3.6 10^3/uL (1.4-6.5); Neutrophils Percent Auto 61.1 % (43.0-75.0); Platelet Count 297 10^3/uL (150-450); Red Blood Count 5.03 10^6/uL (4.20-5.40); Red Cell Distribution Width 12.1 % (11.0-15.0)
[2024-11-14 14:30] LABS: Estimated Average Glucose 103 mg/dL; Glycohemoglobin A1C 5.2 % (4.5-6.2)
[2024-11-14 15:11] LABS: Thyroid Stimulating Hormone 1.542 uIU/mL (0.358-3.740); Total Protein 9.4 g/dL (6.4-8.2)
[2024-11-14 15:14] LABS: HCG Quantitative <1 mIU/mL
[2024-11-14 15:35] LABS: Free T4 1.25 ng/dL (0.76-1.46)
[2024-11-15 04:07] LABS: Luteinizing Hormone(LH) 3.7 mIU/mL (.)
[2024-11-15 14:08] LABS: Beta-2 Glycoprotein I Ab, IgA <9 (0-25); Beta-2 Glycoprotein I Ab, IgG <9 (0-20); Beta-2 Glycoprotein I Ab, IgM <9 (0-32)
[2024-11-15 15:09] LABS: Anticardiolipin Ab, IgG, Qn <9 GPL U/mL (0-14)
[2024-11-17 22:07] LABS: Antithrombin Activity 113 % (75-135); Factor VIII Activity 136 % (56-140); Protein C-Functional 109 % (73-180)
[2024-11-18 10:12] LABS: DHEA, Serum 561 ng/dL (31-701)
== END 2024-11-14 13:20 | disposition home or self-care (01) ==
PROVIDERS: PCP Family Medicine; Visit Provider Obstetrics & Gynecology
DX: E28.2 Polycystic ovarian syndrome (principal); N92.6 Irregular menstruation, unspecified; N92.0 Excessive and frequent menstruation with regular cycle; N94.6 Dysmenorrhea, unspecified; D69.9 Hemorrhagic condition, unspecified
CPT/HCPCS: 36415; 81241; 82626; 82627; 83001; 83002; 83036; 84155; 84439; 84443; 84702; 85025; 85300; 85303; 85306; 85613; 86146; 86147

== ENCOUNTER 2024-12-05 15:19 | Outpatient (REF) | payer MEDICAID, SELFPAY ==
--- OUTSIDE RECORDS SUMMARY | 2024-12-05 14:00 | XMS_ITS | Encounter Summary ---
Author Organization [facility] Address [address] [place] [address] Care Team Providers Care Carton Lettering Machine Operator Name Role Phone Priya Castañeda MD Primary Care Provider [phone] Reason for Visit * Reason Comments Gynecologic Exam Encounter Details Date Type Department Care Team (Late st Contact Info) Description 12/05/2024 2:00 PM EDT Office Visit [facility] [address] [place] [address] Charis Bustamante PA [address] [place] [address] Well woman exam with routine gynecological exam Social History Tobacco Use Types Packs/Day Years [...] Sign Reading Time Taken Comments Blood Pressure 112/60 12/05/2024 1:53 PM EDT Pulse - - Temperature - - Respiratory Rate - - Oxygen Saturation - - Inhaled Oxygen Concentration - - Weight 49.9 kg (110 lb) 12/05/2024 1:53 PM EDT Height 170.2 cm (5' 7 ) 12/05/2024 1:53 PM EDT Body Mass Index 17.23 12/05/2024 1:53 PM EDT documented in this encounter Progress Notes * MADIE Roe - 12/05/2024 2:00 PM EDT Reason for Appointment: Patient ID: Leticia Castellano is a 19 y.o. female who presents for Gynecologic Exam Patient presents today for Annual Exam. MEDICATIONS Current Outpatient Medications Medication Instructions levonorgestrel-ethinyl estradiol (Jolessa) 0.15-0.03 MG tablet 1 tablet, Oral, Daily, Take 1 tabletby mouth daily omeprazole (PRILOSEC) 40 mg, Oral, [...] Past Medical History: Diagnosis Date Acid reflux ([facility]) HISTORY PAST MEDICAL HISTORY SOCIAL HISTORY Past [...] Exam Constitutional: Appearance: Normal appearance. She is well-developed. Genitourinary: Vulva normal. Right Adnexa: not tender and no mass present. Left Adnexa: not tender and no mass present. No cervical discharge. Breasts: Breasts are soft. Right: Normal. Left: Normal. HENT: Head: Normocephalic. Nose: Nose normal. Mouth/Throat: Mouth: Mucous membranes are moist. Cardiovascular: Rate and Rhythm: Normal rate and regular rhythm. Pulmonary: Effort: Pulmonary effort is normal. Breath sounds: Normal breath sounds. Abdominal: General: Bowel sounds are normal. There is no distension. Palpations: Abdomen is soft. Tenderness: There is no abdominal tenderness. There is no guarding or rebound. Musculoskeletal: General: No swelling. Normal range of motion. Cervical back: Normal range of motion. Right lower leg: No edema. Left lower leg: No edema. Neurological: General: No focal deficit present. Mental Status: She is alert and oriented to person, place, and time. Skin: General: Skin is warm and dry. Psychiatric: Mood and Affect: Mood normal. Behavior: Behavior normal. Vitals and nursing note reviewed. Exam conducted with a electrophonic engineer present. Vitals: Estimated body mass index is 16.91 kg/m² as calculated from the following: Height as of 08/16/23: 5' 7.25 . Weight as of 11/07/24: 108 lb 12 oz. BP: Patient's last menstrual period was 10/16/2024. ASSESSMENT & PLAN ICD-10-CM 1. Well woman exam with routine gynecological exam Z01.419 Pap Smear Annual Exam: Patient presents today for an annual exam. Patient states she is doing well and has no complaints. Pap was obtained without difficulty. No orders of the defined types were placed in this encounter. Follow Up: Patient is to return in one year for annual unless needed otherwise. Documented by Yaz Singer MA on behalf of: MADIE Roe documented in this encounter Plan of Treatment Scheduled Orders Name Type Priority Associated Diagnoses Orde r Schedule Pap Smear Pathology and Cytology Routine Well woman exam with routine gynecological exam Ordered: 12/05/2024 documented as of this encounter Visit Diagnoses Diagnosis Well woman exam with routine gynecological exam Routine gynecological examination documented in this encounter Care Teams Carton Lettering Machine Operator Relationship Specialty Start Date End Date Priya Castañeda MD [address] [place] [address] PCP - General Family Medicine 10/20/22 documented as of this encounter
--- OUTSIDE RECORDS SUMMARY | 2024-12-05 15:22 | XMS_ITS | Encounter Summary ---
Author Organization [facility] Address [address] [place] [address] Care Team Providers Care Python Developer Name Role Phone Priya Castañeda MD Primary Care Provider [phone] Priya Castañeda MD Unavailable Encounter Details Date Type Department Care Team (Late st Contact Info) Description 03/13/2023 Abstract [facility] [address] [place] [address] Priya Castañeda MD [address] [place] [address] Social History Tobacco Use Types [...] on filedocumented in this encounter Care Teams Python Developer Relationship Specialty Start Date End Date Priya Castañeda MD [address] [place] [address] PCP - General Family Medicine 10/20/22 Priya Castañeda MD [address] [place] [id number] PCP - Medical [place] [employer] 05/23/23 08/09/24 documented as of this encounter
--- OUTSIDE RECORDS SUMMARY | 2024-12-05 15:22 | XMS_ITS | Clinical Summary ---
Author Organization [facility] Address [address] [place] [address] Care Team Providers Care Quality Assurance Supervisor Trim Name Role Phone Priya Castañeda MD Primary Care Provider [phone] Allergies No known active allergies Medications omeprazole (PriLOSEC) [address] Hernández ons:Third trimester ([facility]) Take 1 capsule (40 mg) by mouth in the morning. Take before meals. Do not crush or chew.. 30 capsule 11 3 Active levonorgestrel- ethinyl estradiol (Jolessa) 0.15-0.03 MG tabletIndicatio ns:Uses control Take 1 tablet by mouth Daily Take 1 tablet by mouth daily 84 tablet 3 5 Active norethindrone (Micronor) 0.35 MG tabletIndicatio ns:6 weeks follow-up ([facility]) TAKE 1 TABLET BY MOUTH IN THE MORNING 28 tablet 3 4 12/06/19 25 Discontinu ed(Ineffec tive) Active Problems Problem Noted Date Diagnosed Date [...] Encounters Date Type Department Care Team Description 12/05/2024 2:00 PM EDT Office Visit [facility] [address] [place] [address] Charis Bustamante PA Well woman exam with routine gynecological exam 12/05/2024 Bamboo flowsheet [facility] [address] [place] [address] Charis Bustamante PA 11/14/2024 Clinisync Result Encounter [facility] External Department Unsolicited Iman Mcgregor, 11/12/2024 Clinisync Result Encounter [facility]OM[facility] External Department Unsolicited Provider, Generic External Data 11/07/2024 3:00 PM EDT Office Visit [facility] OB [address] [place] [address] [place] [address] Charis Bustamante PA Irregular bleeding; Pelvic pain in female; Menorrhagia with regular cycle; Dysmenorrhea; Bleeding disorder; PCOS (polycystic ovarian syndrome) 11/07/2024 Bamboo flowsheet [facility] [address] [place] [address] Charis Bustamante PA from Last 3 Months [...] Pressure 112/60 12/05/2024 1:53 PM EDT Pulse 68 08/16/2023 4:03 PM EDT Temperature - - Respiratory Rate 12 08/16/2023 4:03 PM EDT Oxygen Saturation - - Inhaled Oxygen Concentration - - Weight 49.9 kg (110 lb) 12/05/2024 1:53 PM EDT Height 170.2 cm (5' 7 ) 12/05/2024 1:53 PM EDT Body Mass Index 17.23 12/05/2024 1:53 PM EDT Plan of Treatment Health Maintenance Due Date Last Done Comments Influenza Vaccine (#1) 2025 Procedures Procedure Name Priority Date/Time Associated Diagnosis Comments UH DILUTE LUCINA VIPER VENO M TIME Routine 11/14/2024 1:53 PM EDT BETA-2 GLYCOPROTEIN I AB,G,A,M Routine 11/14/2024 1:53 PM EDT ALL FOLLICLE STIMULATING HORMONE Routine 11/14/2024 1:53 PM EDT ALL LUTEINIZING HORMONE Routine 11/15/19 1:53 PM EDT ALL DHEA SULFATE Routine 11/14/2024 1:53 PM EDT PROTEIN C-FUNCTIONAL Routine 11/14/2024 1:53 PM EDT FACTOR VIII ACTIVITY Routine 11/14/2024 1:53 PM EDT TBH ANTITHROMBIN ACTIVITY Routine 2024 1:53 PM EDT FACTOR V LEIDEN MUTATION Routine 025 1:53 PM EDT ANTICARDIOLIPIN AB, IGG, QN Routine 10/22 1:53 PM EDT ALL DEHYDROEPIANDROSTERONE Routine 11/14 1:53 PM EDT ALL MISCELLANEOUS TEST Routine 1:53 PM EDT ALL MISCELLANEOUS TEST Routine 5 1:53 PM EDT ALL THYROXINE (T4) FREE Routine 11/15/19 1:53 PM EDT TBH PREG QUANT HCG Routine 11/14/2024 1: 53 PM EDT ALL THYROID STIM HORMONE Routine 025 1:53 PM EDT ALL TOTAL PROTEIN Routine 11/14/2024 1:5 3 PM EDT MLR HEMOGLOBIN A1C Routine 11/14/2024 1: 53 PM EDT ALL CBC WITH AUTO DIFF Routine 5 1:53 PM EDT US PELVIS W/ TRANSVAGINAL 2024 8:04 AM EDT from Last 3 Months Results * FACTOR VIII ACTIVITY (11/14/2024 1:53 PM EDT) Pathologist [facility] FACTOR VIII ACTIVITY 136 56 - 140 % [facility] 11/14/2024 1:53 PM EDT 11/14/2024 2:00 PM EDT Narrative [facility] - 11/17/2024 10:07 PM EDT us Generic External Data Provider LAB BLOOD ORDERAB LES Final Result [facility] TB * BETA-2 GLYCOPROTEIN I AB,G,A,M (11/14/2024 1:53 PM EDT) Pathologist [facility] BETA-2 GLYCOPROTEIN I AB, IGG <9 0 - 20 TBH Comment: Result Units: GPI IgG units The reference interval reflects a 3SD or 99th percentile interval, which is thought to represent a potentially clinically significant result in accordance with the International Consensus Statement on the classification criteria for definitive antiphospholipid syndrome (APS). J Thromb Haem 2006;4:295-306. BETA-2 GLYCOPROTEIN I AB, IGA <9 0 - 25 TBH Comment: Result Units: GPI IgA units The reference interval reflects a 3SD or 99th percentile interval, which is thought to represent a potentially clinically significant result in accordance with the International Consensus Statement on the classification criteria for definitive antiphospholipid syndrome (APS). J Thromb Haem 2006;4:295-306. BETA-2 GLYCOPROTEIN I AB, IGM <9 0 - 32 [facility] Comment: Result Units: GPI IgM units The reference interval reflects a 3SD or 99th percentile interval, which is thought to represent a potentially clinically significant result in accordance with the International Consensus Statement on the classification criteria for definitive antiphospholipid syndrome (APS). J Thromb Haem 2006;4:295-306. Performed at: [facility] [id number] Collision Mechanic: Odilon Parsons PhD, Phone: [phone] 11/14/2024 1:53 PM EDT 11/14/2024 2:00 PM EDT Narrative [facility] - 11/27/2024 11:09 AM EDT Iman Mcgregor DO LAB BLOOD ORDERABLES Final Resul t [facility] * ANTICARDIOLIPIN AB, IGG, QN (11/14/2024 1:53 PM EDT) ANTICARDIOLIPIN AB, IGG, QN <9 0 - 14 GPL U/mL [facility] Comment: Negative: <15 Indeterminate: 15 - 20 Low-Med Positive: >20 - 80 High Positive: >80 Performed at: [facility] [id number] Collision Mechanic: Odilon Parsons PhD, Phone: [phone] 11/14/2024 1:53 PM EDT 11/14/2024 2:00 PM EDT Narrative [facility] - 11/18/2024 10:12 AM EDT Iman Mcgregor DO LAB BLOOD ORDERABLES Final Resul t [facility] * PROTEIN C-FUNCTIONAL (11/14/2024 1:53 PM EDT) [facility] PROTEIN C-FUNCTIONAL 109 73 - 180 % [facility] Comment: Performed at: [address] [id number] Collision Mechanic: Hanna Rothman MD, Phone: [phone] 11/14/2024 1:53 PM EDT 11/14/2024 2:00 PM EDT Narrative [facility] - 11/17/2024 10:07 PM EDT Generic External Data Provider LAB BLOOD ORDERAB LES Final Result Performing Organization Address [facility] Co de Phone Number [facility] * FACTOR V LEIDEN MUTATION (11/14/2024 1:53 PM EDT) [facility] FACTOR V LEIDEN MUTATION Comment . [facility] Comment: Result: c.1601G>A (p.[id number]) - Not Detected This result is not associated with an increased risk for venous thromboembolism. See Additional Clinical Information and Comments. Additional Clinical Information: Venous thromboembolism is a multifactorial disease influenced by genetic, environmental, and circumstantial risk factors. The c.1601G>A (p. [id number]) variant in the F5 gene, commonly referred to as Factor V Leiden, is a genetic risk factor for venous thromboembolism. Heterozygous carriers of this variant have a 6- to 8-fold increased risk for venous thromboembolism. Individuals homozygous for this variant (ie, with a copy of the variant on each chromosome) have an approximately 80-fold increased risk for venous thromboembolism. Individuals who carry both a c.*97G>A variant in the F2 gene and Factor V Leiden have an approximately 20-fold increased risk for venous thromboembolism. Risks are likely to be even higher in more complex genotype combinations involving the F2 c.*97G>A variant and Factor V Leiden (PMID: 72560198). Additional risk factors include but are not limited to: deficiency of protein C, protein S, or antithrombin III, age, male sex, personal or family history of deep vein thromboembolism, smoking, surgery, prolonged immobilization, malignant neoplasm, tamoxifen treatment, raloxifene treatment, oral contraceptive use, hormone replacement therapy, and . Management of thrombotic risk and thrombotic events should follow established guidelines and fit the clinical circumstance. This result cannot predict the occurrence or recurrence of a thrombotic event. Comment: Genetic counseling is recommended to discuss the potential clinical implications of positive results, as well as recommendations for testing family members. Genetic Coordinators are available for health care providers to discuss results at [phone] Test Details: Variant Analyzed: c.1601G>A (p. [id number]), referred to as Factor V Leiden Methods/Limitations: DNA analysis of the F5 gene (NM_000130.5) was performed by PCR amplification followed by electrophoresis. The diagnostic sensitivity is >99%. Results must be combined with clinical information for the most accurate interpretation. Molecular-based testing is highly accurate, but as in any laboratory test, diagnostic errors may occur. False positive or false negative results may occur for reasons that include genetic variants, blood transfusions, bone marrow transplantation, somatic or tissue-specific mosaicism, mislabeled samples, or erroneous representation of family relationships. This test was developed and its performance characteristics determined by [facility]. It has not been cleared or approved by the Food and Drug Administration. References: No Laird, Jaki INGRAM, Bay R, Soila WW, Anshul JH; ACMG Professional Practice and Guidelines Committee. Addendum: [employer] consensus statement on factor V Leiden mutation testing. Adelina Med. 2020Jul 25. doi: 10.1038/t26552-875-85965-f. PMID: 02573795. Althea ANTONY. Factor V Leiden Thrombophilia. 1998October 03 (Updated 2017May 26). In: Jitendra MP, Miranda HH, Pia RA, et al., editors. David(R) (Internet). [place] ([place]): [facility]; 1144-2372. Available from: https://www.ncbi.nlm.nih.gov/books/NYG2011/ Bonifacio Laird, Jaki INGRAM, John X, Javier B, Bianka EB, Keren Arzola, lD CS; ACM[employer] Laboratory Cw Operator Committee. Venous thromboembolism laboratory testing (factor V Leiden and factor II c. *97G>A), 2018 update: a technical standard of the [employer] and [employer]omics (ACMG). Adelina Med. 2018 Apr;20(12): 7210-8312. doi: 10.1038/a89016-057-3190-f. Epub 2017Feb 24. PMID: 04108510. [facility] REVIEWED BY Comment . [facility] Comment: Technical Component performed at [facility] [place] Professional Component performed by: Christopher Abbott, PhD, [facility] [id number], [facility], [address] [place] [address] Performed at: - [facility] [address], [place], [place] [id number] Collision Mechanic: Celia Chi [facility], Phone: [phone] 11/14/2024 1:53 PM EDT 11/14/2024 2:00 PM EDT Narrative [facility] - 11/19/2024 2:10 PM EDT Iman Mcgregor DO LAB BLOOD ORDERABLES Final Resul t Performing Organization Address City/[facility]/ZIP Co de Phone Number [facility] * [facility] ANTITHROMBIN ACTIVITY (11/14/2024 1:53 PM EDT) [facility] ANTITHROMBIN ACTIVITY 113 75 - 135 % [facility] Comment: Direct Xa inhibitor anticoagulants such as rivaroxaban, apixaban and edoxaban will lead to spuriously elevated antithrombin activity levels possibly masking a deficiency. 11/14/2024 1:53 PM EDT 11/14/2024 2:00 PM EDT Narrative [facility] - 11/17/2024 10:07 PM EDT Generic External Data Provider CLINISYNC F inal Result [facility] * DILUTE LUCINA VIPER VENOM TIME (11/14/2024 1:53 PM EDT) [facility] DILUTE LUCINA'S VIPER VENOM 39.2 . sec TB Comment: Reference Range: <= 47.0 DRVVT.2 TNP . sec TBH Comment:Testing Not Indicate d DRVVT.3 TNP . ratio TBH Comment: Testing Not Indicated Performed at: [facility] [address] [id number] Collision Mechanic: Yannick Nance MD, Phone: [phone] 11/14/2024 1:53 PM EDT 11/14/2024 2:00 PM EDT Narrative [facility] - 11/27/2024 11:09 AM EDT Iman Luio DO CLINISYNC Final Result [facility] * TB PREG QUANT HCG (11/14/2024 1:53 PM EDT) [facility] HCG QUANTITATIVE <1 mIU/mL TB Comment: 5-50 0.2-1 WEEK 50-500 1-2 WEEKS 100-5,000 2-3 WEEKS 500-10,000 3-4 WEEKS 1,000-50,000 4-5 WEEKS 10,000-100,000 5-6 WEEKS 15,000-200,000 6-8 WEEKS 10,000-100,000 2-3 MONTHS 11/14/2024 1:53 PM EDT 11/14/2024 2:00 PM EDT Narrative [facility] - 11/14/2024 3:14 PM EDT Generic External Data Provider [facility] F [facility]al [facility] * MLR HEMOGLOBIN A1C (11/14/2024 1:53 PM EDT) [facility] GLYCOHEMOGLOBIN A1C 5.2 4.5 - 6.2 % [facility] Comment: ADA RECOMMENDED LIMIT 4.0 - 6.0 ADA THERAPEUTIC TARGET < 7.0 ACTION SUGGESTED > 7.0 ESTIMATED AVERAGE GLUCOSE 103 mg/dL [facility] 11/14/2024 1:53 PM EDT 11/14/2024 2:00 PM EDT Narrative [facility] - 11/14/2024 2:47 PM EDT Iman Balbir DO CLINISYNC Final Result Performing Organization Address [facility] Phone Number [facility] * (ABNORMAL) ALL TOTAL PROTEIN (11/14/2024 1:53 PM EDT) TOTAL PROTEIN 9.4(H) 6.4 - 8.2 g/dL TB 11/14/2024 1:53 PM EDT 11/14/2024 2:00 PM EDT Narrative [facility] - 11/14/2024 3:14 PM EDT Generic External Data Provider CLINISYNC F inal Result Performing Organization Address [facility] Phone Number [facility] * ALL THYROXINE (T4) FREE (11/14/2024 1:53 PM EDT) FREE T4 1.25 0.76 - 1.46 ng/dL TB 11/14/2024 1:53 PM EDT 11/14/2024 2:00 PM EDT Narrative [facility] - 11/14/2024 3:40 PM EDT Iman Balbir DO CLINISYNC Final Result Performing Organization Address [facility] Phone Number [facility] * ALL THYROID STIM HORMONE (11/14/2024 1:53 PM EDT) THYROID STIMULATING HORMONE 1.542 0.358 - 3.740 uIU/mL [facility] 11/14/2024 1:53 PM EDT 11/14/2024 2:00 PM EDT Narrative [facility] - 11/14/2024 3:14 PM EDT Generic External Data Provider CLINISYNC F inal Result Performing Organization Address [facility] Co de Phone Number [facility] * ALL MISCELLANEOUS TEST (11/14/2024 1:53 PM EDT) Only the most recent of2 resultswithin the time period is included. Pathologist [facility] MISCELLANEOUS TEST COMMENT . TBH Comment: Test Ordered: [id number] Protein S, Free Protein S, Free 108 % BN Reference Range: 61-136 Performed at: - [facility] [id number] Collision Mechanic: Hanna Rothman MD, Phone: [phone] Performed at: [facility] [id number] Collision Mechanic: Odilon Parsons PhD, Phone: [phone] 11/14/2024 1:53 PM EDT 11/14/2024 2:00 PM EDT Narrative [facility] - 11/16/2024 12:08 PM EDT [id number] Protein S, Free Iman Balbir DO CLINISYNC Final Result Performing Organization Address [facility] Co de Phone Number [facility] * ALL LUTEINIZING HORMONE (11/14/2024 1:53 PM EDT) Pathologist [facility] LUTEINIZING HORMONE(LH) 3.7 . mIU/mL [facility] Comment: Adult Female Range Follicular phase 2.4 - 12.6 Ovulation phase 14.0 - 95.6 Luteal phase 1.0 - 11.4 Postmenopausal 7.7 - 58.5 11/14/2024 1:53 PM EDT 11/14/2024 2:00 PM EDT Narrative [facility] - 11/27/2024 11:09 AM EDT Iman Balbir DO CLINISYNC Final Result Performing Organization Address [facility] Co de Phone Number [facility] * ALL FOLLICLE STIMULATING HORMONE (11/14/2024 1:53 PM EDT) Pathologist [facility] FSH 8.0 . mIU/mL TBH Comment: Adult Female Range Follicular phase 3.5 - 12.5 Ovulation phase 4.7 - 21.5 Luteal phase 1.7 - 7.7 Postmenopausal 25.8 - 134.8 Performed at: [address] [id number] Collision Mechanic: Odilon Parsons PhD, Phone: [phone] 11/14/2024 1:53 PM EDT 11/14/2024 2:00 PM EDT Narrative [facility] - 11/27/2024 11:09 AM EDT Iman Balbir DO CLINISYNC Final Result [facility] * ALL DHEA SULFATE (11/14/2024 1:53 PM EDT) DHEA-SULFATE 268.0 110.0 - 431.7 ug/dL TB 11/14/2024 1:53 PM EDT 11/14/2024 2:00 PM EDT Narrative [facility]IN[facility] - 11/27/2024 11:09 AM EDT [facility] Balbir DO CLINISYNC Final Result [facility] * ALL DEHYDROEPIANDROSTERONE (11/14/2024 1:53 PM EDT) DHEA, SERUM 561 31 - 701 ng/dL [facility]H Comment: This test was developed and its performance characteristics determined by [facility]. It has not been cleared or approved by the Food and Drug Administration. Performed at: [address] [id number] Collision Mechanic: Hanna Rothman MD, Phone: [phone] 11/14/2024 1:53 PM EDT 11/14/2024 2:00 PM EDT Narrative CLIN[facility] - 11/18/2024 10:12 AM EDT Iman Mcgregor DO CLINISYNC Final Result [facility] * (ABNORMAL) ALL CBC WITH AUTO DIFF (11/14/2024 1:53 PM EDT) [facility] WBC 6.0 4.0 - 11.0 10 3/uL TBH TBH RBC 5.03 4.20 - 5.40 10 6/uL TBH TBH HGB 14.5 12.0 - 16.0 g/dL TBH TBH HCT 43.1 36.0 - 48.0 % TBH TBH MCV 85.7 81.0 - 99.0 fL TBH TBH MCH 28.8 26.7 - 34.0 pg TBH TBH MCHC 33.6 29.9 - 35.2 g/dL TBH TBH RDW 12.1 11.0 - 15.0 % TBH TBH PLT 297 150 - 450 10 3/uL TBH TBH MPV 9.1(L) 9.5 - 13.5 fL TBH NEUTROPHILS PERCENT AUTO 61.1 43.0 - 75.0 % TBH LYMPHOCYTES PERCENT AUTO 32.2 20.5 - 60.0 % TBH MONOCYTES PERCENT AUTO 5.4 1.7 - 12.0 % TBH TBH EO % 0.8(L) 0.9 - 7.0 % TBH BASOPHILS PERCENT AUTO 0.3 0.2 - 2.0 % TBH IMMATURE GRANULOCYTES PCT AUTO 0.2 0.0 - 0.5 % TBH NEUTROPHILS ABSOLUTE AUTO 3.6 1.4 - 6.5 10 3/uL TBH LYMPHOCYTES ABSOLUTE AUTO 1.9 1.2 - 3.8 10 3/uL TBH MONOCYTES ABSOLUTE AUTO 0.3 0.3 - 0.8 10 3/uL TBH TBH EO # 0.1 0.0 - 0.7 10 3/uL TBH BASOPHILS ABSOLUTE AUTO 0.0 0.0 - 0.1 10 3/uL TBH IMMATURE GRANULOCYTES ABS AUTO 0.01 0.00 - 0.03 10 3/uL TBH 11/14/2024 1:53 PM EDT 11/14/2024 2:00 PM EDT Narrative [facility]IN[facility] - 11/14/2024 2:10 PM EDT us Generic External Data Provider DIEGO F [facility]al Result [facility] * US PELVIS W/ TRANSVAGINAL (11/12/2024 8:04 AM EDT) Anatomical Region Laterality Modality Other 11/12/2024 8:04 AM EDT Narrative 11/12/2024 8:06 [place] [address] Ultrasound Report Signed Patient: LETICIA CASTELLANO MR#: [id number] : 2005 Acct:[id number] Age/Sex: 19 / F ADM Date: 11/10/24 Loc: US Attending Dr: Iman Mcgregor D.O. Ordering Physician: Iman Mcgregor D.O. Date of Service: 11/10/24 Procedure(s): US pelvis w/ transvaginal Accession Number(s): [id number] cc: PRIYA CASTAÑEDA ; Iman Mcgregor D.O. [place] [id number] Patient Name: LETICIA CASTELLANO MRN: [id number] date: 2005 Sex: F Assigned Patient Location: Current Patient Location: Accession/Order Number: [id number] Exam Date: 11/12/2024 08:00 Report Date: 11/12/2024 [...] Pederson M.D. 11/12/2024 8:04 AM Dictation Location: [place] [address] Electronically authenticated by: [id number] Y Date: 11/12/2024 08:04 Dictated By: Simi Pederson M.D. Signed By: 11/12/24805 DD/ 3 TD/TT: Shellfish Weigher: Procedure Note Radiology, Radiologist, MD - 11/12/2024 [place] [address] Ultrasound Report Signed Patient: LETICIA CASTELLANO AMR#: [id number] : 2005Acct:[id number] Age/Sex: Date: 11/10/24 Loc: US Attending Dr: Iman Mcgregor D.O. Ordering Physician: Iman Mcgregor D.O. Date of Service: 11/10/24 Procedure(s): US pelvis w/ transvaginal Accession Number(s): [id number] cc: PRIYA CASTAÑEDA Corey D.O. The [place] [id number] Patient Name: LETICIA CASTELLANO MRN: [id number] date: 2005 Sex: F Assigned Patient Location: US Current Patient Location: Accession/Order Number: [id number] Exam Date: 11/12/2024 08:00 Report Date: 11/12/2024 [...] Pederson M.D. 11/12/2024 8:04 AM Dictation Location: [place] [address] Electronically authenticated by: [id number] Y Date: 508:04 Dictated By: Simi Pederson M.D. Signed By:11/12/24 0806 DD/ 0804 TD/TT: Shellfish Weigher: us Generic External Data Provider [facility] IMAGING Final Result from Last 3 Months Insurance [employer] [employer] [place] Care Teams Quality Assurance Supervisor Trim Relationship Specialty Start Date End Date Priya Castañeda MD [address] [place] [address] PCP - General Family Medicine 10/20/22
--- OUTSIDE RECORDS SUMMARY | 2024-12-05 15:22 | XMS_ITS | Encounter Summary ---
Author Organization [facility] tem Address [id number] [address] [place] [address] Care Team Providers Care Manufacturing Cost Estimator Name Role Phone Priya Castañeda MD Primary Care Provider [phone] Encounter Details Date Type Department Care Team (Late st Contact Info) Description 03/12/2023 Refill [facility] - Labor [address] [place] [phone] Na Farrell RN Social History Tobacco Use [...] on filedocumented in this encounter Care Teams Manufacturing Cost Estimator Relationship Specialty Start Date End Date Priya Castañeda MD PCP - General Family Medicine 03/11/23 documented as of this encounter
--- OUTSIDE RECORDS SUMMARY | 2024-12-05 15:22 | XMS_ITS | Encounter Summary ---
Author Organization [facility] Address [address] [place] [address] Care Team Providers Care Veterinary Meat Inspector Name Role Phone Priya Castañeda MD Primary Care Provider [phone] Priya Castañeda MD Unavailable Encounter Details Date Type Department Care Team (Late st Contact Info) Description 03/01/2023 Orders Only [facility] [address] [place] [address] Hugh Mcgregor, [address] [place] [address] Social History Tobacco Use Types Packs/Day [...] on file documented as of this encounter Procedures Procedure Name Priority Date/Time Associated Diagnosis Comments US RENAL KIDNEY Routine 03/01/2023 11:51 AM EDT documented in this encounter Results * US RENAL KIDNEY (03/01/2023 11:51 AM EDT) Anatomical Region Laterality Modality Radiographic Fang ging us Hugh Mcgregor DO IMG XR PROCEDURES Final Result documented in this encounter Visit Diagnoses Not on filedocumented in this encounter Care Teams Veterinary Meat Inspector Relationship Specialty Start Date End Date Priya Castañeda MD [address] [place] [address] PCP - General Family Medicine 10/20/22 Priya Castañeda MD [address] [place] [address] PCP - Medical [place] [employer] 05/23/23 08/09/24 documented as of this encounter
--- OUTSIDE RECORDS SUMMARY | 2024-12-05 15:22 | XMS_ITS | Encounter Summary ---
Author Organization [facility] Address [address] [place] [address] Care Team Providers Care Wastewater Treatment Supervisor Name Role Phone Priya Castañeda MD Primary Care Provider [phone] Priya Castañeda MD Unavailable Encounter Details Date Type Department Care Team (Late st Contact Info) Description 01/27/2023 Abstract [facility] [address] [facility] [place] [address] Charis Bustamante PA [address] [place] [address] Social History Tobacco Use Types Packs/Day [...] on filedocumented in this encounter Care Teams Wastewater Treatment Supervisor Relationship Specialty Start Date End Date Priya Castañeda MD [address] [place] [address] PCP - General Family Medicine 10/20/22 Priya Castañeda MD [address] [place] [address] PCP - Medical [employer] 05/23/23 08/09/24 documented as of this encounter
--- OUTSIDE RECORDS SUMMARY | 2024-12-05 15:22 | XMS_ITS | Encounter Summary ---
Author Organization [facility] Address [address] [place] [address] Care Team Providers Care Front Desk Monitor Name Role Phone Priya Castañeda MD Primary Care Provider [phone] Priya Castañeda MD Unavailable Encounter Details Date Type Department Care Team (Late st Contact Info) Description 02/10/2023 Clinisync Result Encounter [facility] External Department Unsolicited Iman Mcgregor, DO [address] [address] Social History Tobacco Use Types [...] PM EDT Narrative 02/10/2023 3:18 [place] [address] Ultrasound Report Signed Patient: LETICIA THOMPSON MR#: [id number] : 2005 Acct:[id number] Age/Sex: 17 / F ADM Date: 02/10/23 Loc: US Attending Dr: Iman Mcgregor D.O. Ordering Physician: Iman Mcgregor D.O. Date of Service: 02/10/23 Procedure(s): US OB transvaginal Accession Number(s): [id number] cc: Iman Mcgregor D.O.; Physician,Non-Staff Dipak The [place] [id number] Patient Name: LETICIA THOMPSON MRN: [id number] date: 2005 Sex: F Assigned Patient Location: US Current Patient Location: Accession/Order Number: [id number] Exam Date: 02/10/2023 08:02 Report Date: 02/10/2023 [...] Signed By: 02/11/23 1059 DD/ 1518 TD/TT: Physician/Allergy/Immunology: Procedure Note Radiology, Radiologist, MD - 02/11/2023 The [place] [id number] Ultrasound Report Signed Patient: LETICIA THOMPSON AMR#: [id number] : 2005Acct:[id number] Age/Sex: 17 / FADM Date: 02/10/23 Loc: US Attending Dr: Iman Mcgregor D.O. Ordering Physician: Iman Mcgregor D.O. Date of Service: 02/10/23 Procedure(s): US OB transvaginal Accession Number(s): [id number] cc: Iman Mcgregor D.O.; Physician,Non-Staff Dipak The [place] [address] Patient Name: LETICIA THOMPSON MRN: [id number] date: 2005 Sex: F Assigned Patient Location: US Current Patient Location: Accession/Order Number: [id number] Exam Date: 02/10/2023 08:02 Report Date: 02/10/2023 [...] M.D. Signed By:02/11/23 1059 DD/ 1518 TD/TT: Physician/Allergy/Immunology: us Iman Mcgregor DO [facility] Final Result documented in this encounter Visit Diagnoses Not on filedocumented in this encounter Care Teams Front Desk Monitor Relationship Specialty Start Date End Date Priya Castañeda MD [address] [place] [address] PCP - General Family Medicine 10/20/22 Priya Castañeda MD [address] [place], [place] [id number] PCP - Medical [place] [employer] 05/23/23 08/09/24 documented as of this encounter
--- OUTSIDE RECORDS SUMMARY | 2024-12-05 15:22 | XMS_ITS | Encounter Summary ---
Author Organization [facility] Address [address] [place] [address] Care Team Providers Care Irrigation Tax Assessor Collector Name Role Phone Priya Castañeda MD Primary Care Provider [phone] Encounter Details Date Type Department Care Team (Late st Contact Info) Description 12/05/2024 Bamboo flowsheet [facility] OB [address] [facility] [id number] Charis Bustamante PA [address] [place], [facility] Social History Tobacco Use Types Packs/Day Years [...] on filedocumented in this encounter Care Teams Irrigation Tax Assessor Collector Relationship Specialty Start Date End Date Priya Castañeda MD [address] [facility] [place] [address] PCP - General Family Medicine 10/20/22 documented as of this encounter
--- OUTSIDE RECORDS SUMMARY | 2024-12-05 15:22 | XMS_ITS | Clinical Summary ---
Author Organization [facility] Address [address], [address] [place] [address] Care Team Providers Care Esthetician Name Role Phone Priya Castañeda MD Primary Care Provider [phone] Allergies No known active allergies Medications omeprazole (PRILOSEC) 20 MG delayed release capsule Take 1 capsule by mouth Daily 30 capsule 3 09/29/2021 Active cyproheptadine 2 MG/5ML syrup Take 10 mLs by mouth daily 300 mL 3 09/29/2021 Active Active Problems Problem Noted Date Diagnosed Date Chronic generalized abdominal pain Weight loss, non-intentional Immunizations Immunization Administration Dates Next Due DTaP 12/15/2007 FTqG-KLWH-QJT, PEDIARIX, (ag e 6w-6y), IM, 0.5mL 04/08/2004,02/04/2004,2003 Hep B, ENGERIX-B, RECOMBIVAX -HB, (age - 19y), IM, 0.5mL 2003 Hib PRP-T, ACTHIB (age 2m-5y , Adlt Risk), HIBERIX (age 6w-4y, Adlt Risk), IM, 0.5mL 04/08/2004,02/04/2004,2003 Hib vaccine 10/01/2005 MMR, PRIORIX, M-M-R II, (age 12m+), SC, 0.5mL 12/15/2007,10/01/2005 Meningococcal ACWY, MENACTRA (MenACWY-D), (age 9m-55y), IM, 0.5mL 12/27/2019,09/08/2016 Pneumococcal Conjugate 7-valent (Prevnar7) 04/08,02/04/2004,2003 Poliovirus, IPOL, (age 6w+), SC/IM, 0.5mL 2007 TDaP, ADACEL (age 10y-64y), BOOSTRIX (age 10y+), IM, 0.5mL 09/08/2016 Varicella, VARIVAX, (age 12m+), SC, 0.5mL 2007,10/01/2005 Family History Medical History Relation Name Comments Crohn's Disease Maternal Cousin Relation Name Status Comments Maternal Cousin Other Social History Tobacco Use Types Packs/Day Years Used Date Smoking Tobacco: Never Smokeless Tobacco: Never Alcohol Use Standard Drinks/Week Comments Never 0 (1 standard drink = 0.6 oz pur e alcohol) Comments Unknown Sex and Gender Information Value Date Recorded Sex Assigned at Not on file Legal Sex Female 1:56 PM EDT Gender Identity Not on file Sexual Orientation Not on file Last Filed Vital Signs Vital Sign Reading Time Taken Comments Blood Pressure 110/65 09/01/2021 8:52 AM EDT Pulse 90 09/01/2021 8:52 AM EDT Temperature 36.2 C (97.2 F) 09/01/2021 8:52 AM EDT Respiratory Rate 14 09/01/2021 8:52 AM EDT Oxygen Saturation 100% 09/01/2021 8:52 AM EDT Inhaled Oxygen Concentration - - Weight 47.2 kg (104 lb) 09/01/2021 6:28 AM EDT Height 172.7 cm (5' 8 ) 09/01/2021 6:28 AM EDT Body Mass Index 15.81 09/01/2021 6:28 AM EDT Plan of Treatment Not on file Insurance GENERIC MANAGED CARE [employer] C[employer] Care Teams Esthetician Relationship Specialty Start Date End Date Priya Castañeda MD [address] [place] [address] PCP - General 10/07/17
--- OUTSIDE RECORDS SUMMARY | 2024-12-05 15:22 | XMS_ITS | Encounter Summary ---
Author Organization [facility] Address [address] [place] [address] Care Team Providers Care Talent Acquisition Specialist Name Role Phone Priya Castañeda MD Primary Care Provider [phone] Priya Castañeda MD Unavailable Encounter Details Date Type Department Care Team (Late st Contact Info) Description 03/13/2023 Abstract [facility] [address] [place] [address] Priya Castañeda MD [address] [place] [address] Social History Tobacco Use Types [...] on filedocumented in this encounter Care Teams Talent Acquisition Specialist Relationship Specialty Start Date End Date Priya Castañeda MD [address] [place] [address] PCP - General Family Medicine 10/20/22 Priya Castañeda MD [address] [place] [id number] PCP - Medical [place] [employer] 05/23/23 08/09/24 documented as of this encounter
--- OUTSIDE RECORDS SUMMARY | 2024-12-05 15:22 | XMS_ITS | Encounter Summary ---
Author Organization [facility] Address [address] [place] [address] Care Team Providers Care Associate Media Director Name Role Phone Priya Castañeda MD Primary Care Provider [phone] Priya Castañeda MD Unavailable Encounter Details Date Type Department Care Team (Late st Contact Info) Description 03/11/2023 Abstract [facility] [address] [place] [address] Priya Castañeda MD [address] [place] [address] Social History Tobacco Use Types [...] on filedocumented in this encounter Care Teams Associate Media Director Relationship Specialty Start Date End Date Priya Castañeda MD [address] [place] [address] PCP - General Family Medicine 10/20/22 Priya Castañeda MD [address] [place] [id number] PCP - Medical [place] [employer] 05/23/23 08/09/24 documented as of this encounter
--- OUTSIDE RECORDS SUMMARY | 2024-12-05 15:22 | XMS_ITS | Encounter Summary ---
Author Organization [facility] Address [address] [place] [address] Care Team Providers Care Wheel Adjuster Name Role Phone Priya Castañeda MD Primary Care Provider [phone] Priya Castañeda MD Unavailable Encounter Details Date Type Department Care Team (Late st Contact Info) Description 02/10/2023 Clinisync Result Encounter [facility] External Department Unsolicited Iman Mcgregor, DO [address] [place] [address] Social History Tobacco Use Types [...] PM EDT Narrative 02/10/2023 3:18 PM EDT The [address] [address] Ultrasound Report Signed Patient: LETICIA THOMPSON MR#: [id number] : 2005 Acct:[id number] Age/Sex: 17 / F ADM Date: 02/10/23 Loc: US Attending Dr: Iman Mcgregor D.O. Ordering Physician: Iman Mcgregor D.O. Date of Service: 02/10/23 Procedure(s): US OB placenta Accession Number(s): [id number] cc: Iman Mcgregor D.O.; Physician,Non-Staff Dipak The [address] [address] Patient Name: LETICIA THOMPSON MRN: [id number] date: 2005 Sex: F Assigned Patient Location: US Current Patient Location: US Accession/Order Number: [id number] Exam Date: 02/10/2023 08:02 Report Date: 02/10/2023 [...] Avila M.D. Signed By: 02/10/23 1520 DD/ 1518 TD/TT: Cardiothoracic Surgeon: Procedure Note Radiology, Radiologist, MD - 02/11/[address] [address] Ultrasound Report Signed Patient: LETICIA THOMPSON AMR#: [id number] : 2005Acct:[id number] Age/Sex: 17 / FADM Date: 02/10/23 Loc: US Attending Dr: Iman Mcgregor D.O. Ordering Physician: Iman Mcgregor D.O. Date of Service: 02/10/23 Procedure(s): US OB placenta Accession Number(s): [id number] cc: Iman Mcgregor D.O.; Physician,Non-Staff Dipak [place] [address] Patient Name: LETICIA THOMPSON MRN: [facility]:[id number] date: 2005 Sex: F Assigned Patient Location: US Current Patient Location: US Accession/Order Number: [id number] Exam Date: 02/10/2023 08:02 Report Date: 02/10/2023 [...] M.D. Signed By:02/10/23 1520 DD/ 1518 TD/TT: Cardiothoracic Surgeon: us Iman Mcgregor DO [facility] Final Result documented in this encounter Visit Diagnoses Not on filedocumented in this encounter Care Teams Wheel Adjuster Relationship Specialty Start Date End Date Priya Castañeda MD [address] [place] [address] PCP - General Family Medicine 10/20/22 Priya Castañeda MD [address] [place] [address] PCP - Medical [place] [employer] 05/23/23 08/09/24 documented as of this encounter
--- OUTSIDE RECORDS SUMMARY | 2024-12-05 15:22 | XMS_ITS | Encounter Summary ---
Author Organization [facility] Address [address] [place] [address] Care Team Providers Care Real Estate Financial Analyst Name Role Phone Priya Castañeda MD Primary Care Provider [phone] Priya Castañeda MD Unavailable Encounter Details Date Type Department Care Team (Late st Contact Info) Description 12/10/2022 Abstract [facility] [address] [place] [address] Priya Castañeda MD [address] [place] [address] Social History Tobacco Use Types [...] on filedocumented in this encounter Care Teams Real Estate Financial Analyst Relationship Specialty Start Date End Date Priya Castañeda MD [address] [place] [address] PCP - General Family Medicine 10/20/22 Priya Castañeda MD [address] [place] [phone] PCP - Medical [place] [employer] 05/23/23 08/09/24 documented as of this encounter
--- OUTSIDE RECORDS SUMMARY | 2024-12-05 15:22 | XMS_ITS | Encounter Summary ---
Author Organization [facility] Address [address] [place] [address] Care Team Providers Care Medicare Contact Specialist Name Role Phone Refugio Herbert MD Primary Care Provider [phone] Refugio Herbert MD Unavailable Encounter Details Date [...] PM EDT Narrative 02/23/2023 3:08 PM EDT The [address] [address] Ultrasound Report Signed Patient: LETICIA THOMPSON MR#: [id number] : 2005 Acct:[id number] Age/Sex: 17 / F ADM Date: 02/23/23 Loc: [facility] [address]: Iman Mcgregor D.O. Ordering Physician: Iman Mcgregor D.O. Date of Service: 02/23/23 Procedure(s): US renal BI Accession Number(s): [id number] cc: REFUGIO HERBERT ; Iman Mcgregor D.O. The [address] [address] Patient Name: LETICIA THOMPSON MRN: [facility]:[id number] date: 2005 Sex: F Assigned Patient Location: [facility] Current Patient Location: [facility] Accession/Order Number: [id number] Exam Date: 02/23/2023 13:39 Report Date: 02/23/2023 [...] Signed By: 02/23/23 1510 DD/ 1508 TD/TT: Residential Sales Manager: Procedure Note Radiology, Radiologist, - 02/23/2023 The [place] [id number] Ultrasound Report Signed Patient: LETICIA THOMPSON AMR#: [id number] : 2005Acct:[id number] Age/Sex: 17 / FADM Date: 02/23/23 Loc: [facility] 254-[address]: Iman Mcgregor D.O. Ordering Physician: Iman Mcgregor D.O. Date of Service: 02/23/23 Procedure(s): US renal BI Accession Number(s): [id number] cc: REFUGIO HERBERT ; Iman Mcgregor D.O. [place] [address] Patient Name: LETICIA THOMPSON MRN: [facility]:[id number] date: 2005 Sex: F Assigned Patient Location: [facility] Current Patient Location: [facility] Accession/Order Number: [id number] Exam Date: 02/23/2023 13:39 Report Date: 02/23/2023 [...] M.D. Signed By:02/23/23 1510 DD/ 1508 TD/TT: Residential Sales Manager: us Generic External Data Provider [facility] Final Result documented in this encounter Visit Diagnoses Not on filedocumented in this encounter Care Teams Medicare Contact Specialist Relationship Specialty Start Date End Date Refugio Herbert MD [address] [place] [address] PCP - General Family Medicine 10/20/22 Refugio Herbert MD [address] [place], [place] [address] PCP - Medical [place] Commercial 05/23/23 08/09/24 documented as of this encounter
--- OUTSIDE RECORDS SUMMARY | 2024-12-05 15:22 | XMS_ITS | Encounter Summary ---
Author Organization [facility] Address [address] [place] [address] Care Team Providers Care Facilities Maintenance Technician Name Role Phone Priya Castañeda MD Primary Care Provider [phone] Priya Castañeda MD Unavailable Encounter Details Date Type Department Care Team (Late st Contact Info) Description 02/10/2023 Clinisync Result Encounter [facility] External Department Unsolicited Iman Mcgregor, DO [address] [facility] [place] [address] Social History Tobacco Use Types [...] EDT Narrative 02/10/2023 3:16 [place] [address] Ultrasound Report Signed Patient: LETICIA THOMPSON MR#: [id number] : 2005 Acct:[id number] Age/Sex: 17 / F ADM Date: 02/10/23 Loc: US Attending Dr: Iman Mcgregor D.O. Ordering Physician: Iman Mcgregor D.O. Date of Service: 02/10/23 Procedure(s): US OB growth Accession Number(s): [id number] cc: Iman Mcgregor D.O.; Physician,Non-Staff Dipak The [place] [address] Patient Name: LETICIA THOMPSON MRN: [id number] date: 2005 Sex: F Assigned Patient Location: US Current Patient Location: US Accession/Order Number: [id number] Exam Date: 02/10/2023 08:02 Report Date: 02/10/2023 [...] Signed By: 02/10/23 1518 DD/ 15 TD/TT: Polisher Implant: Procedure Note Radiology, Radiologist, - 02/11/2023 [place] [address] Ultrasound Report Signed Patient: LETICIA THOMPSON AMR#: [id number] : 2005Acct:[id number] Age/Sex: 17 / FADM Date: 02/10/23 Loc: US Attending Dr: Iman Mcgregor D.O. Ordering Physician: Iman Mcgregor D.O. Date of Service: 02/10/23 Procedure(s): US OB growth Accession Number(s): [id number] cc: Iman Mcgregor D.O.; Physician,Non-Staff Dipak The [place] [address] Patient Name: LETICIA THOMPSON MRN: [facility]:[id number] date: 2005 Sex: F Assigned Patient Location: US Current Patient Location: US Accession/Order Number: [id number] Exam Date: 02/10/2023 08:02 Report Date: 02/10/2023 [...] M.D. Signed By:02/10/23 1518 DD/ 15 TD/TT: Polisher Implant: us Iman Balbir DO [facility] Final Result documented in this encounter Visit Diagnoses Not on filedocumented in this encounter Care Teams Facilities Maintenance Technician Relationship Specialty Start Date End Date Priya Castañeda MD [address] [facility] [place] [address] PCP - General Family Medicine 10/20/22 Priya Castañeda MD [address] [place] [address] PCP - Medical [place] [employer] 05/23/23 08/09/24 documented as of this encounter
--- OUTSIDE RECORDS SUMMARY | 2024-12-05 15:22 | XMS_ITS | Clinical Summary ---
Author Organization [employer] [facility] Address [id number] [address] [place] [address] Care Team Providers Care Boiler Tube Blower Name Role Phone Priya Castañeda MD Primary Care Provider [phone] Allergies No known active allergies Medications omeprazole [...] on file Insurance [employer] [facility] [place] Care Teams Boiler Tube Blower Relationship Specialty Start Date End Date Priya Castañeda MD PCP - General Family Medicine 03/11/23
--- OUTSIDE RECORDS SUMMARY | 2024-12-05 15:22 | XMS_ITS | Encounter Summary ---
Author Organization [facility] Address [address] [place] [address] Care Team Providers Care Storeroom Clerk Name Role Phone Priya Castañeda MD Primary Care Provider [phone] Priya Castañeda MD Unavailable Encounter Details Date Type Department Care Team (Late st Contact Info) Description 12/10/2022 Abstract [facility] [address] [place] [address] Priya Castañeda MD [address] [place] [address] Social History Tobacco Use Types [...] on filedocumented in this encounter Care Teams Storeroom Clerk Relationship Specialty Start Date End Date Priya Castañeda MD [address] [place] [address] PCP - General Family Medicine 10/20/22 Priya Castañeda MD [address] [place] [phone] PCP - Medical [place] [employer] 05/23/23 08/09/24 documented as of this encounter
--- OUTSIDE RECORDS SUMMARY | 2024-12-05 15:22 | XMS_ITS | Clinical Summary ---
Author Organization [facility] Address [address] [place] [address] Care Team Providers Care Cardiac Cath Lab Manager Name Role Phone Priya Castañeda MD Primary Care Provider [phone] Allergies No known active allergies Medications amitriptyline [...] place to sleep or slept in a chcf (including now)? No 10/29/2021 Comments No Sex [...] - 2023-2 5 season) 2024 Influenza Vaccine (#1) 2025 HIB Vaccine Aged Out No longer [...] Name:VIVIANE THOMPSON Date of :1984 (Home) Address: [address] [place] [address] Payer ID:[id number] (NAIC) Type:Commercial Address: [place] [id number] Care Teams Cardiac Cath Lab Manager Relationship Specialty Start Date End Date Priya Castañeda MD [facility] [place] [address] PCP - General Family Medicine 10/29/21
--- OUTSIDE RECORDS SUMMARY | 2024-12-05 15:22 | XMS_ITS | Encounter Summary ---
Author Organization [facility] Address [address] [place] [address] Care Team Providers Care Women'S Apparel Salesperson Name Role Phone Priya Castañeda MD Primary Care Provider [phone] Priya Castañeda MD Unavailable Encounter Details Date Type Department Care Team (Late st Contact Info) Description 10/18/2022 Abstract [facility] OB [address] [facility] [address] [address] [place] [address] Hugh Mcgregor [address] [facility] [address] [place], [place] [id number] Social History Tobacco Use Types Packs/Day Years [...] on filedocumented in this encounter Care Teams Women'S Apparel Salesperson Relationship Specialty Start Date End Date Priya Castañeda MD [address] [place] [address] PCP - General Family Medicine 10/20/22 Priya Castañeda MD [address] [place] [address] PCP - Medical [place] [employer] 05/23/23 08/09/24 documented as of this encounter
[2024-12-10 17:10] LABS: Age Gdln ACOG Testing Note (.); IGP, rfx Aptima HPV ASCU Note (.)
== END 2024-12-05 15:20 | disposition home or self-care (01) ==
LOC: LAB 15:19
PROVIDERS: PCP Family Medicine; Visit Provider Physician Assistant
DX: Z01.419 Encounter for gynecological examination (general) (routine) without abnormal findings (principal)
CPT/HCPCS: 88175